=== PATIENT | male | born 1940 | race Caucasian/White ===

== ENCOUNTER → 2016-09-05 | Outpatient (CLI) | payer MEDICARE, OTHER ==
[~2016-09-05] MED LIST: ACET65TA OR; AMBI10TA OR; AMLO10CA29 PO; ASPI1TAB PO; ASPI81TA3 PO; ATOR40TA PO; CALC1TAB17 PO; CALCCHW12 PO; FLON0.05; LIPI20TA PO; LISI20TA5 PO; MULTIVIT PO; NORV5TAB OR; REME30TA OR; SENO8.6T5 OR; TUMS500C OR; VIAG100T PO; VIT D 2000 PO; VITA100037 PO; VITMTA PO
[2016-09-05 17:44] LABS: ANION GAP 11 MEQ/L (8-16); BLOOD UREA NITROGEN 11 MG/DL (7-18); CALCIUM LEVEL 9.8 MG/DL (8.8-10.2); CARBON DIOXIDE LEVEL 25 MEQ/L (21-32); CHLORIDE LEVEL 95 MEQ/L (98-107); CREATININE FOR GFR 0.63 MG/DL (0.70-1.30); GLOMERULAR FILTRATION RATE > 60.0 (>42); GLUCOSE, FASTING 95 MG/DL (83-110); POTASSIUM SERUM 4.8 MEQ/L (3.5-5.1); SODIUM LEVEL 131 MEQ/L (136-145)
== END ==
LOC: M WUC 12:26
PROVIDERS: ATTEND Nurse Practitioner Family
DX: R35.0 Frequency of micturition (principal); Z12.5 Encounter for screening for malignant neoplasm of prostate
CPT/HCPCS: 36415; 80048; 81002; G0103

== ENCOUNTER → 2016-09-08 | Outpatient (CLI) | payer MEDICARE, OTHER ==
[~2016-09-08] MED LIST changes: +ISOVUE-370 76% 100ML VIAL (Q9967) As Ordered ONE
--- NOTE | 2016-09-08 10:46 | REP ---
CT cervical spine without contrast: HISTORY: Cervical mass. There is no acute fracture or subluxation. Disc bulges with associated osteophyte formation are present at the C3-4 through C6-7 levels. There is minimal narrowing of the spinal canal. Uncinate process and/or facet hypertrophy are present at the C2-3 through C7-T1 levels. These findings produce minimal to moderate narrowing of the neural foramina. The C3-4 through C6-7 intervertebral discs are decreased in height. Vacuum phenomenon is present at the C5-6 and C6-7 levels. These findings are consistent with disc degeneration. IMPRESSION: There is cervical spondylosis at the C2-3 through C7-T1 levels. Signed by Kyle Moreira MD 09/08/2016 10:48 A
--- NOTE | 2016-09-08 10:49 | REP ---
Clinical: Cervical carcinoma with left chest wall pain. Technique: Axial contrast enhanced images from the thoracic inlet to the upper abdomen using 100 ml Isovue 370 intravenous contrast material with coronal and sagittal re-formations. Comparison: None. Findings: Bilateral lung abbasi are well-aerated, symmetric, and clear. No pulmonary parenchymal consolidation, nodule or mass lesion is appreciated. No pleural effusion/reaction or pneumothorax. Tracheobronchial tree is patent. No axillary, hilar or mediastinal adenopathy is appreciated. Atherosclerotic changes to the thoracic aorta and coronary arteries noted without aneurysm/dissection, cardiomegaly or pericardial effusion. Osseous structures demonstrate presumed age-related degenerative changes without obvious focal lytic, blastic or sclerotic lesion. There is however a subacute posterior right 11th rib fracture with small amounts of surrounding callus formation (image 101) and what appears to be a subacute left lateral tenth rib fracture (image 109). Impression: 1. Very subtle bilateral subacute appearing nondisplaced right eleventh and left tenth rib fractures. Osseous structures otherwise demonstrate presumed age-related degenerative changes without lytic, blastic, or sclerotic lesions. 2. No acute mediastinal or pleuroparenchymal process. Signed by Haroldo Alas MD 09/08/2016 10:41 A
== END ==
LOC: M RAD 09:34
PROVIDERS: ATTEND Nurse Practitioner Family
DX: G95.9 Disease of spinal cord, unspecified (principal); M43.12 Spondylolisthesis, cervical region
CPT/HCPCS: 71260; 72125; Q9967

== ENCOUNTER → 2016-09-27 | Outpatient (REF) | payer MEDICARE, OTHER ==
[~2016-09-27] MED LIST changes: -ISOVUE-370 76% 100ML VIAL (Q9967) As Ordered ONE
[2016-09-27 16:41] LABS: BASO % 0.5 % (0.0-1.0); EOS # 0.1 K/mm3 (0.0-0.50); EOS % 2.1 % (0.0-3.0); LARGE UNSTAINED CELL # 0.1 K/mm3 (0.0-0.4); LARGE UNSTAINED CELL % 1.6 % (0.0-4.0); LYMPH # 1.4 K/mm3 (1.5-4.5); LYMPH % 22.9 % (24.0-44.0); MEAN CORPUSCULAR HEMOGLOBIN 32.4 pg (27.0-33.0); MEAN CORPUSCULAR VOLUME 92.6 fl (80.0-96.0); MONO # 0.6 K/mm3 (0.0-0.8); MONO % 9.5 % (0.0-5.0); NEUTROPHILS # 3.7 K/mm3 (1.8-7.7); NEUTROPHILS % 63.3 % (36.0-66.0); PLATELET COUNT, AUTOMATED 253 k/mm3 (150-450); RED CELL DISTRIBUTION WIDTH 13.5 % (11.5-14.5); WHITE BLOOD COUNT 5.8 K/mm3 (4.0-10.0)
[2016-09-27 16:42] LABS: ANION GAP 7 MEQ/L (8-16); BLOOD UREA NITROGEN 17 MG/DL (7-18); CALCIUM LEVEL 9.8 MG/DL (8.8-10.2); CARBON DIOXIDE LEVEL 25 MEQ/L (21-32); CHLORIDE LEVEL 94 MEQ/L (98-107); CREATININE FOR GFR 0.66 MG/DL (0.70-1.30); FERRITIN 66 NG/ML (26-388); GLOMERULAR FILTRATION RATE > 60.0 (>42); GLUCOSE, FASTING 97 MG/DL (83-110); PERCENT SATURATION 24.5 % (19.7-37.4); POTASSIUM SERUM 4.4 MEQ/L (3.5-5.1); SODIUM LEVEL 126 MEQ/L (136-145); TOTAL IRON BINDING CAPACITY 364 UG/DL (250-450)
== END ==
LOC: M SFHCPLAZ 13:44
PROVIDERS: ATTEND Physician Assistant Medical
DX: K21.9 Gastro-esophageal reflux disease without esophagitis (principal); E87.1 Hypo-osmolality and hyponatremia; Z79.82 Long term (current) use of aspirin; Z79.899 Other long term (current) drug therapy

== ENCOUNTER → 2016-09-30 | Outpatient (REF) | payer MEDICARE, OTHER ==
[2016-09-30 11:44] LABS: MEAN CORPUSCULAR HEMOGLOBIN 32.8 pg (27.0-33.0); MEAN CORPUSCULAR HGB CONC 35.3 g/dl (32.0-36.5); RED CELL DISTRIBUTION WIDTH 13.6 % (11.5-14.5); WHITE BLOOD COUNT 4.9 K/mm3 (4.0-10.0)
[2016-09-30 12:06] LABS: ALBUMIN 4.1 GM/DL (3.2-5.2); ALBUMIN/GLOBULIN RATIO 1.78 (1.00-1.93); ALKALINE PHOSPHATASE 165 U/L (45-117); ALT/SGPT 27 U/L (12-78); ANION GAP 7 MEQ/L (8-16); AST/SGOT 16 U/L (15-37); BILIRUBIN,TOTAL 0.4 MG/DL (0.2-1.0); BLOOD UREA NITROGEN 12 MG/DL (7-18); CALCIUM LEVEL 9.6 MG/DL (8.8-10.2); CARBON DIOXIDE LEVEL 27 MEQ/L (21-32); CHLORIDE LEVEL 97 MEQ/L (98-107); CHOLESTEROL LEVEL 123 MG/DL (<200); CREATININE FOR GFR 0.68 MG/DL (0.70-1.30); GLOMERULAR FILTRATION RATE > 60.0 (>42); GLUCOSE, FASTING 104 MG/DL (83-110); MAGNESIUM LEVEL 2.2 MG/DL (1.8-2.4); POTASSIUM SERUM 4.3 MEQ/L (3.5-5.1); SODIUM LEVEL 131 MEQ/L (136-145); TOTAL PROTEIN 6.4 GM/DL (6.4-8.2); TRIGLYCERIDES LEVEL 71 MG/DL (<150)
== END ==
LOC: M SFHCPLAZ 09:42
PROVIDERS: ATTEND Internal Medicine
DX: C43.0 Malignant melanoma of lip (principal); I10 Essential (primary) hypertension; E78.00 Pure hypercholesterolemia, unspecified

== ENCOUNTER → 2016-10-05 | Outpatient (REF) | payer MEDICARE, OTHER ==
[2016-10-05 10:28] LABS: ALBUMIN 3.9 GM/DL (3.2-5.2); ALBUMIN/GLOBULIN RATIO 1.63 (1.00-1.93); ALKALINE PHOSPHATASE 157 U/L (45-117); ALT/SGPT 32 U/L (12-78); ANION GAP 7 MEQ/L (8-16); AST/SGOT 19 U/L (15-37); BILIRUBIN,TOTAL 0.6 MG/DL (0.2-1.0); BLOOD UREA NITROGEN 12 MG/DL (7-18); CALCIUM LEVEL 9.5 MG/DL (8.8-10.2); CARBON DIOXIDE LEVEL 27 MEQ/L (21-32); CHLORIDE LEVEL 98 MEQ/L (98-107); GLOMERULAR FILTRATION RATE > 60.0 (>42); GLUCOSE, FASTING 94 MG/DL (83-110); POTASSIUM SERUM 4.3 MEQ/L (3.5-5.1); SODIUM LEVEL 132 MEQ/L (136-145); TOTAL PROTEIN 6.3 GM/DL (6.4-8.2)
[2016-10-05 11:49] LABS: OSMOLALITY SERUM 273 MOSM/KG (280-301)
== END ==
LOC: M SFHCPLAZ 08:43
PROVIDERS: ATTEND Physician Assistant Medical
DX: E87.1 Hypo-osmolality and hyponatremia (principal)

== ENCOUNTER → 2016-10-07 | Outpatient (REF) | payer MEDICARE, OTHER ==
[2016-10-07 13:21] LABS: TOTAL VOLUME, URINE 3050 ML
[2016-10-07 14:00] LABS: OSMOLALITY URINE 375 MOSM/KG (500-800)
[2016-10-07 14:16] LABS: SODIUM 24 HOUR URINE 186 MEQ/24HR (40-220)
== END ==
LOC: M SFHCPLAZ 12:52
PROVIDERS: ATTEND Physician Assistant Medical
DX: E87.1 Hypo-osmolality and hyponatremia (principal)

== ENCOUNTER → 2016-10-19 | Outpatient (REF) | payer MEDICARE, OTHER ==
[~2016-10-19] MED LIST changes: -ATOR40TA PO; +ATOR40TA75 PO; +HYDR-643; +LEVA1TAB2 PO; +PROAAER10 INH; -VITA100037 PO; +VITA100067 PO
[2016-10-19 12:38] LABS: ALBUMIN/GLOBULIN RATIO 1.67 (1.00-1.93); ALKALINE PHOSPHATASE 183 U/L (45-117); ALT/SGPT 41 U/L (12-78); ANION GAP 7 MEQ/L (8-16); AST/SGOT 19 U/L (15-37); BILIRUBIN,TOTAL 0.6 MG/DL (0.2-1.0); BLOOD UREA NITROGEN 12 MG/DL (7-18); CALCIUM LEVEL 9.8 MG/DL (8.8-10.2); CARBON DIOXIDE LEVEL 26 MEQ/L (21-32); CHLORIDE LEVEL 103 MEQ/L (98-107); CREATININE FOR GFR 0.71 MG/DL (0.70-1.30); GLOMERULAR FILTRATION RATE > 60.0 (>42); GLUCOSE, FASTING 97 MG/DL (83-110); POTASSIUM SERUM 4.4 MEQ/L (3.5-5.1); SODIUM LEVEL 136 MEQ/L (136-145); TOTAL PROTEIN 6.4 GM/DL (6.4-8.2)
== END ==
LOC: M SFHCPLAZ 09:50
PROVIDERS: ATTEND Physician Assistant Medical
DX: I10 Essential (primary) hypertension (principal); E87.1 Hypo-osmolality and hyponatremia

== ENCOUNTER → 2017-01-02 | Outpatient (CLI) | payer MEDICARE, OTHER ==
[2017-01-02 14:17] LABS: MEAN CORPUSCULAR HEMOGLOBIN 32.8 pg (27.0-33.0); MEAN CORPUSCULAR HGB CONC 35.8 g/dl (32.0-36.5); MEAN CORPUSCULAR VOLUME 91.6 fl (80.0-96.0); RED CELL DISTRIBUTION WIDTH 13.5 % (11.5-14.5); WHITE BLOOD COUNT 6.1 K/mm3 (4.0-10.0)
[2017-01-02 14:48] LABS: ALBUMIN 3.9 GM/DL (3.2-5.2); ALBUMIN/GLOBULIN RATIO 1.56 (1.00-1.93); ALKALINE PHOSPHATASE 188 U/L (45-117); ALT/SGPT 60 U/L (12-78); ANION GAP 6 MEQ/L (8-16); AST/SGOT 24 U/L (15-37); BILIRUBIN,TOTAL 0.5 MG/DL (0.2-1.0); BLOOD UREA NITROGEN 14 MG/DL (7-18); CALCIUM LEVEL 9.9 MG/DL (8.8-10.2); CARBON DIOXIDE LEVEL 27 MEQ/L (21-32); CHLORIDE LEVEL 100 MEQ/L (98-107); CREATININE FOR GFR 0.73 MG/DL (0.70-1.30); GLOMERULAR FILTRATION RATE > 60.0 (>42); GLUCOSE, FASTING 138 MG/DL (83-110); POTASSIUM SERUM 4.1 MEQ/L (3.5-5.1); SODIUM LEVEL 133 MEQ/L (136-145); TOTAL PROTEIN 6.4 GM/DL (6.4-8.2)
--- NOTE | 2017-01-02 16:06 | REP ---
CT brain without contrast: History: Malignant melanoma of the lip. Comparison CT study 06/05/2011. Findings: Digital lateral window clerk radiograph and bone window settings demonstrate that there is evidence of widespread skeletal metastatic disease with numerous lytic lesions in the bony calvarium. The largest of these are in the vertex where there is a left frontal bony destructive lesion measuring 4.1 cm. This is seen at the vertex on the lateral window clerk radiograph. In the left side of the parietal bone at the vertex there is a also a 1.9 cm destructive lesion. There are numerous tiny foci of bone destruction and there is bony destruction in the clivus. These findings are new when compared with the [address] study. No intraorbital mass lesion is seen. Visualized paranasal sinuses are clear. No intracranial mass lesion is observed. There is diffuse mild to moderate cerebral atrophy. The large calvarial metastasis appears to bulge from the inner table of the skull but no significant intracranial mass effect is seen. Post contrast enhanced study shows no abnormal intracranial enhancing mass lesion. The calvarial lesion does show contrast enhancement fairly intensely. 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 No intra-axial metastatic disease seen. Diffuse atrophy and vascular calcification noted. Signed by Joseph Do MD 01/02/2017 04:36 P
[2017-01-05 13:23] LABS: ALBUMIN % 65.6 % (55.8-66.1)
== END ==
LOC: M LAB 13:28
PROVIDERS: ATTEND Nurse Practitioner Adult Health
DX: C43.0 Malignant melanoma of lip (principal)

== ENCOUNTER → 2017-01-11 | Outpatient (CLI) | payer MEDICARE, OTHER ==
[~2017-01-11] MED LIST changes: +GASTROGRAFIN SOLUTION 30ML (Q9963) As Ordered ONE; +ISOVUE-370 76% 100ML VIAL (Q9967) As Ordered ONE
--- NOTE | 2017-01-11 12:45 | REP ---
CT of the abdomen pelvis without and with IV contrast: After IV contrast, multiphase imaging formed during the portal venous phase of enhancement and later during a delayed equilibrium phase of enhancement. Comparisons are 07/03/2015 and 07/23/2011. Within the visualized lower lung abbasi. There is a 9 mm lung nodule inferolaterally in the right lung on image 18, not present on the comparison studies. The hepatic parenchyma is homogeneous on all phases of the study. There is no evidence of hepatic metastatic disease. However, on the study without IV contrast. The hepatic parenchyma demonstrates increased density compared to the spleen. This is nonspecific but can be seen hemochromatosis. There is a small gallbladder calculus. The gallbladder is otherwise unremarkable. The pancreas and spleen are homogeneous and unremarkable. The adrenals and kidneys are unchanged unremarkable. There is a small hepatic cyst in the left kidney, unchanged. The abdominal aorta is unremarkable. There is no periaortic/retroperitoneal adenopathy. There is no mesenteric adenopathy. The large and small bowel loops are unremarkable. Pelvis: There is no adenopathy or ascites. The bladder is unremarkable. There is descending colon and sigmoid colon diverticulosis without diverticulitis. The appendix is unremarkable. There is a 3.2 cm lytic expansile lesion in the left iliac wing. Additionally, there is a 4.0 cm lucent lesion in the right acetabulum. There is a 3.8 a centimeter lucent lesion posteriorly in the left iliac wing and in a similar lesion posteriorly in the right iliac wing. Impression: There are lytic lesions in the pelvis as described. No hepatic metastases. The liver demonstrates increased radiodensity. This can be seen in hemochromatosis. There is a gallbladder calculus. There is no adenopathy or ascites. There is a left renal cyst. Consider radionuclide PET / CT scan for further evaluation. Signed by Yinka Gaitan MD 01/11/2017 12:36 P
--- NOTE | 2017-01-11 14:19 | REP ---
WHOLE BODY BONE SCAN: Following the intravenous administration of 22 millicuries technetium 99m MDP, the patient's whole body is imaged in the anterior and posterior projections. Additional oblique images of the thoracic and pelvic regions are performed as well as lateral views of the calvarium, knees and feet. Focus of increased uptake in the posterior right 11th rib and posterior left 11th rib are consistent with fractures seen on CT scan of 01/11/2017. There is a focus of increased uptake in the left iliac bone consistent with a metastatic lesion. Other lesions, which were seen on the CT exam are not visualized scintigraphically. Arthritic uptake is seen in the cervical spine, shoulders, wrists and left ankle. There is also a mild arthritic uptake in the lower lumbar spine. Renal and bladder activity are seen. IMPRESSION: Focus of increased uptake in the posterior right 11th rib and left 11th rib are consistent with rib fractures. There is a focus of increased uptake in the left iliac bone consistent with a metastatic lesion. Other metastatic lesions seen in the pelvic bones on today's CT scan are not visualized scintigraphically. Signed by Yinka Wang MD 01/11/2017 05:08 P
== END ==
LOC: M RAD 09:34
PROVIDERS: ATTEND Nurse Practitioner Adult Health
DX: C43.0 Malignant melanoma of lip (principal)
CPT/HCPCS: 74178; 78306; A9503; Q9963; Q9967

== ENCOUNTER → 2017-01-16 | Outpatient (REF) | payer MEDICARE, OTHER ==
[~2017-01-16] MED LIST changes: -GASTROGRAFIN SOLUTION 30ML (Q9963) As Ordered ONE; -ISOVUE-370 76% 100ML VIAL (Q9967) As Ordered ONE
[2017-01-16 19:38] LABS: INR 0.94
[2017-01-17 09:09] LABS: TOTAL PROTEIN 6.7 GM/DL (6.4-8.2)
[2017-01-17 12:05] LABS: ALBUMIN % 65.6 % (55.8-66.1); GAMMA GLOBULIN % 4.3 % (11.1-18.8)
[2017-01-17 18:37] LABS: IMMUNOGLOBULIN G 239 MG/DL (681-1648)
[2017-01-17 19:17] LABS: IMMUNOGLOBULIN A 12.2 MG/DL (70-400); IMMUNOGLOBULIN M < 5.3 MG/DL (40-230)
[2017-01-19 00:07] LABS: FREE KAPPA LIGHT CHAINS SERUM 1091.3 mg/L (3.3-19.4); FREE LAMBDA LIGHT CHAINS SERUM <1.5 mg/L (5.7-26.3)
== END ==
LOC: M LAB REF 16:30
PROVIDERS: ATTEND Internal Medicine Medical Oncology
DX: Z79.01 Long term (current) use of anticoagulants (principal)

== ENCOUNTER → 2017-01-24 | Outpatient (CLI) | payer MEDICARE, OTHER ==
--- NOTE | 2017-01-24 16:48 | REP ---
PET/CT: History: With history of melanoma for staging. Comparisons: Comparison CT study of the brain January 02, 2017. Comparison whole body bone scan January 11, 2017. Comparison CT abdomen and pelvis January 11, 2017. TECHNIQUE: 56 minutes following the intravenous injection of a 9.6 mCi dose of F-18 FDG, three-dimensional PET scintigraphy is acquired from the skull vertex to the toes. Triplanar noncontrast CT scanning is acquired through the same anatomic range for attenuation correction, and image registration with scan parameters optimized to minimize radiation exposure to the patient. PET scintigraphy and CT datasets were fused and displayed on a workstation with multiplanar and projection display capability. PET/CT Findings: In the head and neck region, there is a hypermetabolic mass in the posterior aspect of the left maxillary bone involving the posterior portion of the left maxillary sinus with bone destruction of the alveolar ridge. This lesion shows maximum standard uptake value of 9.5. The lesion destroys the left side of the posterior aspect of the hard palate as well. It measures approximately 3 cm in greatest diameter. The hypermetabolic component of the lesion is along its inferior extent in the region of the left maxillary alveolus posteriorly. The accompanying CT and the recent head CT showed several lytic calvarial lesions, the largest of which is at the vertex measuring 4.7 cm in greatest transverse dimension. Maximum standard uptake value here is 3.7. No other abnormal head and neck hypermetabolic uptake is seen. There is an area of lytic bone destruction in the acromion process on the left with minimally increased FDG uptake, maximum standard uptake value 2.3. There is evidence of an old os acromiale on the right, but some lytic change is seen in the right acromion process as well. No hypermetabolic uptake is seen. There is a new radiolucent lesion in the left posterior thoracic vertebral body, number 5. This is suspicious radiographically, but is not showing any FDG accumulation. Similarly, there is another lesion a little lower down in the thoracic spine without hypermetabolic uptake, although it is new. There is mildly hypermetabolic uptake in a bone destructive lesion in the left iliac bone. Maximum standard uptake value is 2.8. There is another fairly large lytic lesion in the right superior acetabulum, 4.8 cm in greatest diameter. At the anterior edge of this lesion, there is some hypermetabolic FDG uptake with SUV number at 3.6. There is a radiolucent lesion in the proximal tibia on the left with some early cortical thinning. Maximum standard uptake value is 2.3. No other abnormal skeletal uptake is seen. There is an area of increased uptake in the soft tissues of the left forearm at mid forearm level. Maximum standard uptake value is fairly high, 5.3. The technologist sheet states that the injection site is in the right antecubital fossa. This soft tissue uptake is in the dorsal aspect of the forearm. Impression: Multifocal mildly hypermetabolic uptake in several of this patient's radiolucent bony metastatic lesions. Most prominent of these include a fairly large calvarial lesion, a left hard palate and maxillary bone destructive lesion, the left iliac crest and a right acetabular lesion as well as an early lesion in the left proximal tibia. Signed by Joseph Do MD 01/24/2017 05:32 P
== END ==
LOC: M PLARAD 11:02
PROVIDERS: ATTEND Internal Medicine Medical Oncology
DX: C43.9 Malignant melanoma of skin, unspecified (principal); C79.51 Secondary malignant neoplasm of bone
CPT/HCPCS: 78816; A9552

== ENCOUNTER → 2017-01-30 | Outpatient (CLI) | payer MEDICARE, OTHER ==
[~2017-01-30] MED LIST changes: +LIDOCAINE 1% MDV 20ML VIAL As Ordered ONE
--- NOTE | 2017-01-30 15:58 | REP ---
CT GUIDED LEFT ILIAC BONE BIOPSY: The procedure was performed under the direct supervision of Dr. Wang. The patient has as history of a 3.2 cm lytic expansile lesion in the left iliac wings seen on a previous CT scan dated 01/11/2017. The risks and benefits of the procedure were explained to the patient and informed consent was obtained. The lesion in the left iliac wing was localized using CT guidance. The skin was prepped and draped in a sterile fashion. 1% lidocaine was used as local anesthetic. Using CT guidance, a 17/18-gauge coaxial needle biopsy system was inserted and advanced into the lesion. Four core biopsy samples were obtained and sent to the lab. The patient tolerated the procedure well and there were no immediate complications. After the appropriate amount of monitored convalescence the patient was discharged from the department. Reviewed by DIMPLE Murray 01/30/2017 05:03 PEdited and Signed by Yinka Wang MD 01/31/2017 07:31 P
== END ==
LOC: M RADPRO 09:10
PROVIDERS: ATTEND Internal Medicine Medical Oncology
DX: C90.00 Multiple myeloma not having achieved remission (principal); Z79.82 Long term (current) use of aspirin; Z79.899 Other long term (current) drug therapy; Z88.8 Allergy status to other drugs, medicaments and biological substances

== ENCOUNTER 2017-02-05 10:01 | Emergency (ER) | payer MEDICARE, OTHER ==
[~2017-02-05] VITALS: Ht 157.5 cm; Wt 70.5 kg
[~2017-02-05 10:01] MED LIST changes: -HYDR-643; -LEVA1TAB2 PO; -LIDOCAINE 1% MDV 20ML VIAL As Ordered ONE; -PROAAER10 INH
[2017-02-05] MEDS ORDERED: HYDR-643 (10:13)
--- NOTE | 2017-02-05 10:54 | REP ---
PA and lateral chest: Comparison is 07/23/2011. The lung abbasi are clear. The cardiac size is normal The aaron, mediastinum, and bony thorax are unremarkable. Impression: Negative PA and lateral chest. There is no interval change. Signed by Yinka Gaitan MD 02/05/2017 10:45 A
[2017-02-05] MEDS ORDERED: LEVA1TAB2 PO (11:38)
[2017-02-05] MEDS ORDERED: PROAAER10 INH (11:39)
[2017-02-05 12:01] VITALS: BP 162/72
== END 2017-02-05 12:02 | disposition home or self-care (01) ==
LOC: M ED 10:01
DX: J20.9 Acute bronchitis, unspecified (principal); I27.20 Pulmonary hypertension, unspecified; I10 Essential (primary) hypertension; E78.5 Hyperlipidemia, unspecified; Z85.828 Personal history of other malignant neoplasm of skin; Z87.19 Personal history of other diseases of the digestive system; R22.1 Localized swelling, mass and lump, neck; Z87.891 Personal history of nicotine dependence; Z82.49 Family history of ischemic heart disease and other diseases of the circulatory system; Z79.82 Long term (current) use of aspirin; Z79.899 Other long term (current) drug therapy; Z88.8 Allergy status to other drugs, medicaments and biological substances

== ENCOUNTER → 2017-02-06 | Outpatient (REF) | payer MEDICARE, OTHER ==
[~2017-02-06] MED LIST changes: +HYDR-643; +LEVA1TAB2 PO; +PROAAER10 INH
== END ==
LOC: M LAB REF 17:12
PROVIDERS: ATTEND Internal Medicine Medical Oncology
DX: C90.00 Multiple myeloma not having achieved remission (principal)

== ENCOUNTER → 2017-03-03 | Outpatient (CLI) | payer MEDICARE, OTHER ==
--- NOTE | 2017-03-03 12:27 | REP ---
MRI CERVICAL SPINE WITHOUT AND WITH CONTRAST: HISTORY: Back pain. CONTRAST: ProHance 14 mL. A disc bulge with associated osteophyte formation is present at the C3-4 level. There is minimal spinal cord compression. Bilateral uncinate process and right facet hypertrophy are present. These findings produce mild narrowing of the C3 neural foramina. A disc bulge and small central disc protrusion are present at the C4-5 level. There is mild effacement of the thecal sac without spinal cord compression. The C4 neural foramina are patent. A disc bulge with associated osteophyte formation is present at the C5-6 level. There is moderate effacement of the thecal sac without spinal cord compression. Bilateral uncinate process hypertrophy is present. This produces minimal narrowing of the C5 neural foramina. A disc bulge and small central disc protrusion with associated osteophyte formation are present at the C6-7 level. There is mild effacement of the thecal sac without spinal cord compression. The C6 neural foramina are patent. A disc bulge is present at the T7-T1 level. There is minimal effacement of the thecal sac without spinal cord compression. The C7 neural foramina are patent. There is no other disc bulge or herniation. The remaining neural foramina are patent. The spinal cord is normal in signal intensity. Small focal areas of increased signal intensity on T2-weighted images are present in the C2, C5 and T1 vertebral bodies. Additional areas of increased signal intensity are present in the left T1 pedicle and left T2 facet, right T3 and T4 facets and T4 spinous process. There is mild enhancement with contrast. These findings are consistent with metastases. The C3-4 through C6-7 intervertebral discs are decreased in height consistent with disc degeneration. The vertebral bodies are normal in height. IMPRESSION: 1. There is cervical spondylosis at the C3-4 through C6-7 levels most significant at the C3-4 level where there is minimal spinal cord compression. 2. There are metastatic lesions in the cervical and thoracic vertebral bodies and neural arch as described above. There is no paravertebral or epidural extension. Signed by Kyle Moreira MD 03/03/2017 12:28 P
--- NOTE | 2017-03-03 12:36 | REP ---
MR THORACIC SPINE WITHOUT AND WITH CONTRAST: HISTORY: Back pain. CONTRAST: ProHance 14 mL. A small central disc protrusion is present at the T2-3 level. There is minimal effacement of the thecal sac without spinal cord compression. The T2 neural foramina are patent. There is no other disc bulge or herniation. The remaining neural foramina are patent. The spinal cord is normal in signal intensity. Focal areas of increased signal intensity are present in the T1, T2, T5, T6, T9, T11, and T12 vertebral bodies. Additional areas of increased signal intensity are present in the left T1 pedicle, left T2, T8 and T10 facets and T4, T6 and T11 spinous processes. There is mild homogeneous enhancement with contrast. These findings are consistent with metastases. The vertebral bodies are normal in height. There is no paravertebral or epidural extension. IMPRESSION: 1. Small disc protrusion at the T2-3 level without spinal cord compression. 2. There are multiple metastatic lesions in the thoracic vertebral bodies and neural arch as described above. There is no paravertebral or epidural extension. Signed by Kyle Moreira MD 03/03/2017 12:37 P
== END ==
LOC: M PLARAD 09:34
PROVIDERS: ATTEND Internal Medicine Medical Oncology
DX: C90.00 Multiple myeloma not having achieved remission (principal); M51.24 Other intervertebral disc displacement, thoracic region

== ENCOUNTER → 2017-03-06 | Outpatient (REF) | payer MEDICARE, OTHER ==
[2017-03-06 14:32] LABS: CORTISOL AM 13.2 UG/DL (4.3-22.4)
[2017-03-06 15:06] LABS: FREE T4 1.09 NG/DL (0.76-1.46)
== END ==
LOC: M LAB REF 13:29
PROVIDERS: ATTEND Internal Medicine Medical Oncology
DX: C90.00 Multiple myeloma not having achieved remission (principal)

== ENCOUNTER → 2017-04-24 | Outpatient (REF) | payer MEDICARE, OTHER ==
[2017-04-24 15:10] LABS: MEAN CORPUSCULAR HEMOGLOBIN 29.1 pg (27.0-33.0); MEAN CORPUSCULAR HGB CONC 33.3 g/dl (32.0-36.5); MEAN CORPUSCULAR VOLUME 87.2 fl (80.0-96.0); PLATELET COUNT, AUTOMATED 236 10^3/uL (150-450); RED BLOOD COUNT 4.47 10^6/uL (4.30-6.10); RED CELL DISTRIBUTION WIDTH 13.7 % (11.5-14.5)
[2017-04-24 15:11] LABS: ADD MANUAL DIFFER YES; DIFF SLIDE NUMBER 263; POSITIVE DIFF POS FLAG
[2017-04-24 18:57] LABS: BANDS 2 % (< 11); BASOPHILS 1 % (0-4); EOSINOPHILS 14 % (0-5); LYMPHOCYTES 7 % (16-52); MONOCYTES 5 % (0-8); NEUTROPHILS 71 % (35-75)
[2017-04-24 18:58] LABS: PLATELET ESTIMATE NORMAL (NORMAL)
[2017-04-24 19:44] LABS: APPEARANCE, URINE CLEAR (CLEAR); BACTERIA, URINE AUTO NEGATIVE (NEGATIVE); BILIRUBIN, URINE AUTO NEGATIVE (NEGATIVE); BLOOD, URINE BLOOD NEGATIVE (NEGATIVE); COLOR, URINE YELLOW (YELLOW); GLUCOSE, URINE (UA) AUTO NEGATIVE (NEGATIVE); KETONE, URINE AUTO NEGATIVE (NEGATIVE); LEUKOCYTE ESTERASE, URINE AUTO NEGATIVE (NEGATIVE); MUCUS, URINE SMALL (NEGATIVE); NITRITE, URINE AUTO NEGATIVE (NEGATIVE); PROTEIN, URINE AUTO NEGATIVE (NEGATIVE); RBC, URINE AUTO 3 /HPF (0-3); SPECIFIC GRAVITY URINE AUTO 1.011 (1.002-1.035); SQUAMOUS EPITHELIAL CELL UR AU 0 /HPF (0-6); UROBILINOGEN, URINE AUTO 0.2 mg/dL (0.0-2.0); WBC, URINE AUTO 1 /HPF (0-3)
== END ==
LOC: M SFHCPLAZ 13:40
DX: C90.00 Multiple myeloma not having achieved remission (principal); R50.9 Fever, unspecified (principal); Z79.899 Other long term (current) drug therapy
CPT/HCPCS: 85025

== ENCOUNTER → 2017-05-30 | Outpatient (REF) | payer MEDICARE, OTHER ==
[2017-05-30 14:05] LABS: TOTAL PROTEIN 5.2 GM/DL (6.4-8.2)
[2017-05-30 14:14] LABS: URINE TOTAL PROTEIN 13.4 MG/DL (0-12)
[2017-05-31 12:57] LABS: ALBUMIN 3.22 GM/DL (3.29-5.55); ALPHA-1-GLOBULINS 0.42 GM/DL (0.17-0.41); ALPHA-2-GLOBULINS 0.75 GM/DL (0.42-0.99); ALPHA-2-GLOBULINS % 14.5 % (7.1-11.8); BETA-1-GLOBULINS 0.36 GM/DL (0.28-0.60); BETA-2-GLOBULINS % 3.8 % (3.2-6.5); GAMMA GLOBULIN % 4.7 % (11.1-18.8); GAMMA GLOBULINS 0.24 GM/DL (0.65-1.58)
[2017-05-31 13:59] LABS: UPEP INTERPRETATION NO M-SPIKE NOTED; URINE VOLUME RANDOM ML
[2017-06-02 00:06] LABS: FREE KAPPA LIGHT CHAINS SERUM 68.4 mg/L (3.3-19.4); FREE LAMBDA LIGHT CHAINS SERUM 6.4 mg/L (5.7-26.3); KAPPA/LAMBDA RATIO SERUM 10.69 (0.26-1.65)
== END ==
LOC: M LAB REF 13:32
DX: C90.00 Multiple myeloma not having achieved remission (principal)
CPT/HCPCS: 84165

== ENCOUNTER → 2017-07-11 | Outpatient (REF) | payer MEDICARE, OTHER ==
[2017-07-11 14:11] LABS: TOTAL PROTEIN 5.9 GM/DL (6.4-8.2)
[2017-07-12 11:16] LABS: ALBUMIN % 66.1 % (55.8-66.1); ALPHA-1-GLOBULIN % 5.3 % (2.9-4.9); ALPHA-1-GLOBULINS 0.31 GM/DL (0.17-0.41); ALPHA-2-GLOBULINS 0.74 GM/DL (0.42-0.99); ALPHA-2-GLOBULINS % 12.5 % (7.1-11.8); BETA-1-GLOBULINS 0.46 GM/DL (0.28-0.60); BETA-1-GLOBULINS % 7.8 % (4.7-7.2); BETA-2-GLOBULINS 0.22 GM/DL (0.19-0.55); BETA-2-GLOBULINS % 3.7 % (3.2-6.5); GAMMA GLOBULIN % 4.6 % (11.1-18.8); GAMMA GLOBULINS 0.27 GM/DL (0.65-1.58)
[2017-07-13 00:07] LABS: FREE KAPPA LIGHT CHAINS SERUM 81.4 mg/L (3.3-19.4); FREE LAMBDA LIGHT CHAINS SERUM 2.1 mg/L (5.7-26.3); KAPPA/LAMBDA RATIO SERUM 38.76 (0.26-1.65)
== END ==
LOC: M LAB REF 13:46
DX: C90.00 Multiple myeloma not having achieved remission (principal)
CPT/HCPCS: 84165

== ENCOUNTER → 2017-08-08 | Outpatient (REF) | payer MEDICARE, OTHER ==
[2017-08-08 14:55] LABS: URINE TOTAL PROTEIN 12.3 MG/DL (0-12)
[2017-08-08 15:30] LABS: IMMUNOGLOBULIN G 270 MG/DL (681-1648); TOTAL PROTEIN 6.4 GM/DL (6.4-8.2)
[2017-08-08 15:33] LABS: IMMUNOGLOBULIN A 21.4 MG/DL (70-400); IMMUNOGLOBULIN M 10.4 MG/DL (40-230)
[2017-08-10 00:06] LABS: FREE KAPPA LIGHT CHAINS SERUM 77.6 mg/L (3.3-19.4); FREE LAMBDA LIGHT CHAINS SERUM 2.3 mg/L (5.7-26.3); KAPPA/LAMBDA RATIO SERUM 33.74 (0.26-1.65)
[2017-08-10 11:29] LABS: ALBUMIN % 65.6 % (55.8-66.1); ALPHA-1-GLOBULIN % 5.3 % (2.9-4.9); ALPHA-2-GLOBULINS % 13.2 % (7.1-11.8); BETA-1-GLOBULINS % 7.1 % (4.7-7.2); BETA-2-GLOBULINS % 3.8 % (3.2-6.5)
[2017-08-10 11:30] LABS: ALPHA-1-GLOBULINS 0.34 GM/DL (0.17-0.41); ALPHA-2-GLOBULINS 0.84 GM/DL (0.42-0.99); BETA-1-GLOBULINS 0.45 GM/DL (0.28-0.60); BETA-2-GLOBULINS 0.24 GM/DL (0.19-0.55); GAMMA GLOBULINS 0.32 GM/DL (0.65-1.58)
[2017-08-10 14:38] LABS: URINE VOLUME RANDOM ML
[2017-08-10 14:39] LABS: UPEP INTERPRETATION NO M-SPIKE NOTED
== END ==
LOC: M LAB REF 13:15
DX: C90.02 Multiple myeloma in relapse (principal); Z85.820 Personal history of malignant melanoma of skin
CPT/HCPCS: 84165

== ENCOUNTER → 2017-10-03 | Outpatient (REF) | payer MEDICARE, OTHER ==
[2017-10-03 17:40] LABS: IMMUNOGLOBULIN G 257 MG/DL (681-1648); TOTAL PROTEIN 5.9 GM/DL (6.4-8.2)
[2017-10-03 17:53] LABS: IMMUNOGLOBULIN M 10.4 MG/DL (40-230)
[2017-10-05 00:07] LABS: FREE KAPPA LIGHT CHAINS SERUM 62.3 mg/L (3.3-19.4); FREE LAMBDA LIGHT CHAINS SERUM 2.1 mg/L (5.7-26.3); KAPPA/LAMBDA RATIO SERUM 29.67 (0.26-1.65)
[2017-10-05 12:46] LABS: ALPHA-1-GLOBULIN % 4.9 % (2.9-4.9)
[2017-10-05 12:47] LABS: ALBUMIN 4.07 GM/DL (3.29-5.55); ALPHA-1-GLOBULINS 0.29 GM/DL (0.17-0.41); ALPHA-2-GLOBULINS 0.71 GM/DL (0.42-0.99); BETA-1-GLOBULINS 0.41 GM/DL (0.28-0.60); BETA-2-GLOBULINS % 3.4 % (3.2-6.5); GAMMA GLOBULIN % 3.7 % (11.1-18.8); GAMMA GLOBULINS 0.22 GM/DL (0.65-1.58)
== END ==
LOC: M LAB REF 13:28
DX: C90.02 Multiple myeloma in relapse (principal); Z85.820 Personal history of malignant melanoma of skin
CPT/HCPCS: 84165

== ENCOUNTER → 2017-11-07 | Outpatient (REF) | payer MEDICARE, OTHER ==
[2017-11-09 00:10] LABS: FREE KAPPA LIGHT CHAINS SERUM 52.4 mg/L (3.3-19.4); FREE LAMBDA LIGHT CHAINS SERUM 1.7 mg/L (5.7-26.3); KAPPA/LAMBDA RATIO SERUM 30.82 (0.26-1.65)
== END ==
LOC: M LAB REF 13:19
DX: C90.02 Multiple myeloma in relapse (principal); Z85.820 Personal history of malignant melanoma of skin
CPT/HCPCS: 83883

== ENCOUNTER → 2017-12-05 | Outpatient (REF) | payer MEDICARE, OTHER ==
[2017-12-06 14:26] LABS: FREE KAPPA LIGHT CHAINS SERUM 59.7 mg/L (3.3-19.4); FREE LAMBDA LIGHT CHAINS SERUM 1.8 mg/L (5.7-26.3); KAPPA/LAMBDA RATIO SERUM 33.17 (0.26-1.65)
== END ==
LOC: M LAB REF 13:52
DX: C90.02 Multiple myeloma in relapse (principal); Z85.820 Personal history of malignant melanoma of skin
CPT/HCPCS: 83883

== ENCOUNTER → 2017-12-11 | Outpatient (REF) | payer MEDICARE, OTHER ==
[2017-12-11 16:17] LABS: ANION GAP 10 MEQ/L (8-16); BLOOD UREA NITROGEN 10 MG/DL (7-18); CALCIUM LEVEL 9.5 MG/DL (8.8-10.2); CARBON DIOXIDE LEVEL 25 MEQ/L (21-32); CHLORIDE LEVEL 101 MEQ/L (98-107); CREATININE FOR GFR 0.61 MG/DL (0.70-1.30); GLOMERULAR FILTRATION RATE > 60.0 (>42); GLUCOSE, FASTING 111 MG/DL (70-100); SODIUM LEVEL 136 MEQ/L (136-145)
== END ==
LOC: M SFHCPLAZ 13:00
DX: E87.1 Hypo-osmolality and hyponatremia (principal)
CPT/HCPCS: 80048

== ENCOUNTER → 2018-01-09 | Outpatient (REF) | payer MEDICARE, OTHER ==
[2018-01-11 00:11] LABS: FREE KAPPA LIGHT CHAINS SERUM 74.4 mg/L (3.3-19.4); FREE LAMBDA LIGHT CHAINS SERUM 2.4 mg/L (5.7-26.3)
== END ==
LOC: M LAB REF 13:50
DX: C90.02 Multiple myeloma in relapse (principal); Z85.820 Personal history of malignant melanoma of skin
CPT/HCPCS: 83883

== ENCOUNTER → 2018-03-01 | Outpatient (REF) | payer MEDICARE, OTHER ==
[2018-03-01 11:49] LABS: CHOLESTEROL LEVEL 107 MG/DL (<200); CHOLESTEROL RISK RATIO 1.877 (<5); HDL CHOLESTEROL 57 MG/DL (>40); LDL CHOLESTEROL 41 MG/DL (<100); NON-HDL-C 50 MG/DL; TRIGLYCERIDES LEVEL 43 MG/DL (<150)
== END ==
LOC: M SFHCPLAZ 08:29
DX: E78.00 Pure hypercholesterolemia, unspecified (principal)
CPT/HCPCS: 80061

== ENCOUNTER → 2019-03-14 | Outpatient (REF) | payer MEDICARE, OTHER ==
[~2019-03-14] MED LIST changes: +ACYC200C8 PO; +ALLE24TA7 PO; +AMLO10CA22 PO; -AMLO10CA29 PO; -ASPI1TAB PO; +ASPI81TA26 PO; -CALC1TAB17 PO; +CHOL100029 PO; +DEXA4TA PO; +DORZ2SOL5 OP; +FISH120016 PO; +OYST500T13 PO; +REVL15CA PO
[2019-03-15 12:13] LABS: TOTAL PROTEIN,RANDOM URINE 6.2 MG/DL (0.0-12.0); URINE TOTAL PROTEIN 6.2 MG/DL (0-12)
[2019-03-19 06:06] LABS: TOTAL VOLUME, URINE 3000 ML
== END ==
LOC: M LAB REF 11:43
PROVIDERS: ATTEND Internal Medicine Hematology
DX: C90.00 Multiple myeloma not having achieved remission (principal)

== ENCOUNTER → 2019-03-16 | Outpatient (CLI) | payer MEDICARE, OTHER ==
[2019-03-16 13:39] LABS: IMMUNOGLOBULIN A 13.1 MG/DL (70-400); IMMUNOGLOBULIN G 257 MG/DL (681-1648)
[2019-03-16 13:40] LABS: IMMUNOGLOBULIN M < 5.3 MG/DL (40-230)
== END ==
LOC: M LAB 10:49
PROVIDERS: ATTEND Internal Medicine Hematology
DX: C90.00 Multiple myeloma not having achieved remission (principal)

== ENCOUNTER → 2019-03-18 | Outpatient (CLI) | payer MEDICARE, OTHER ==
--- NOTE | 2019-03-18 12:09 | REP ---
Clinical: Multiple myeloma. Technique: Standard adult bone survey images through the appendicular and axial skeleton including the calvarium (17 total images). Findings: Innumerable lytic lesions are identified throughout the calvarium as well as involving the bilateral humeri, visualized proximal left radius, pelvis and bilateral femurs. Moderate/advanced multilevel degenerative changes through the cervical, thoracic, and lumbosacral spine limit evaluation for underlying vertebral lesions. No obvious acute fracture / compression injury or acute subluxation appreciated. Impression: Scattered lytic lesions consistent with multiple myeloma. Electronically Signed by Haroldo Alas MD 03/18/2019 12:00 P
== END ==
LOC: M RAD 11:07
PROVIDERS: ATTEND Internal Medicine Hematology
DX: C90.00 Multiple myeloma not having achieved remission (principal)

== ENCOUNTER → 2019-03-21 | Outpatient (CLI) | payer MEDICARE, OTHER ==
[~2019-03-21] MED LIST changes: +AZIT-12 PO; +DOXY100T27 PO
--- NOTE | 2019-03-21 12:08 | REP ---
Clinical: Cough . Comparison: 02/05/2017 . Technique: PA and lateral. Findings: The mediastinum and cardiac silhouette are normal. A somewhat lobulated 2 cm density in the right mid lung zone is appreciated and while this may reflect calcification along the anterior rib margins, pulmonary lesion cannot be excluded. No further consolidation. No effusion. No pneumothorax. Skeletal structures demonstrate osteopenia and degenerative changes. Impression: 1. Cannot exclude right pulmonary nodular lesion. Consider chest CT follow-up. 2. No focal consolidation or effusion. Electronically Signed by Haroldo Alas MD 03/21/2019 12:00 P
== END ==
LOC: M WUC 11:26
PROVIDERS: ATTEND Nurse Practitioner Family
DX: R91.8 Other nonspecific abnormal finding of lung field (principal); R06.2 Wheezing; R05 Cough; R50.9 Fever, unspecified

== ENCOUNTER → 2019-04-18 | Outpatient (CLI) | payer MEDICARE, OTHER ==
[~2019-04-18] MED LIST changes: +AMOX875T2 PO; +CYCL1CAP2 PO; +DOCU100C17 PO; +FOLGTAB5 PO; +MIRA3350 PO; +ONDA4TAB6 PO; +POMA3CAP PO
--- NOTE | 2019-04-18 12:23 | REPPI ---
Clinical: cough. Technique: PA and lateral. Findings: The mediastinum and cardiac silhouette are normal. The lung abbasi are clear and without acute consolidation, effusion, or pneumothorax. The skeletal structures are intact; old right healed rib fracture. Impression: 1. No acute cardiopulmonary process. Electronically Signed by Haroldo Alas MD 04/18/2019 12:14 P
[2019-04-18 14:25] LABS: ALBUMIN 3.6 GM/DL (3.2-5.2); ALT/SGPT 27 U/L (12-78); BILIRUBIN,TOTAL 0.4 MG/DL (0.2-1.0); BLOOD UREA NITROGEN 11 MG/DL (7-18); CALCIUM LEVEL 8.9 MG/DL (8.8-10.2); CARBON DIOXIDE LEVEL 24 MEQ/L (21-32); CHLORIDE LEVEL 102 MEQ/L (98-107); CHOLESTEROL LEVEL 120 MG/DL (<200); CHOLESTEROL RISK RATIO 1.791 (<5); GLOMERULAR FILTRATION RATE > 60.0 (>35); GLUCOSE, FASTING 95 MG/DL (70-100); HDL CHOLESTEROL 67 MG/DL (>40); LDL CHOLESTEROL 43 MG/DL (<100); NON-HDL-C 53 MG/DL; POTASSIUM SERUM 4.1 MEQ/L (3.5-5.1); SODIUM LEVEL 133 MEQ/L (136-145); TOTAL PROTEIN 5.8 GM/DL (6.4-8.2); TRIGLYCERIDES LEVEL 51 MG/DL (<150)
== END ==
LOC: M PLALAB 09:24 → M PLAIMG 09:24
PROVIDERS: ATTEND Internal Medicine
DX: R05 Cough (principal); I10 Essential (primary) hypertension; E78.00 Pure hypercholesterolemia, unspecified
CPT/HCPCS: 36415; 71046; 80053; 80061; 83735; G0463

== ENCOUNTER 2019-06-06 01:02 | Inpatient (IN) | payer MEDICARE, OTHER ==
[~2019-06-06] VITALS: Ht 157.5 cm; Wt 70.5 kg
[~2019-06-06 01:02] MED LIST changes: -DORZ2SOL5 OP; +DORZ2SOL5 OU
[2019-06-06 02:05] LABS: HEMATOCRIT 45.4 % (42.0-52.0); HEMOGLOBIN 15.6 g/dl (13.5-17.5); MEAN CORPUSCULAR HEMOGLOBIN 31.8 pg (27.0-33.0); MEAN CORPUSCULAR HGB CONC 34.4 g/dl (32.0-36.5); MEAN CORPUSCULAR VOLUME 92.5 fl (80.0-96.0); PLATELET COUNT, AUTOMATED 275 10^3/uL (150-450); RED BLOOD COUNT 4.91 10^6/uL (4.30-6.10); WHITE BLOOD COUNT 11.7 10^3/uL (4.0-10.0)
[2019-06-06 02:32] LABS: EOSINOPHILS 1 % (0-3); LYMPHOCYTES 1 % (16-44); MONOCYTES 2 % (0-5); NEUTROPHILS 95 % (28-66)
[2019-06-06 02:33] LABS: PLATELET ESTIMATE NORMAL (NORMAL)
[2019-06-06 02:35] LABS: INR 1.04; PROTHROMBIN TIME 13.3 SECONDS (11.8-14.0)
[2019-06-06 02:36] LABS: PARTIAL THROMBOPLASTIN TIME 26.9 SECONDS (25.0-38.4)
[2019-06-06] MEDS ORDERED: NS 500 ML IV ONE (02:45)
[2019-06-06 03:07] LABS: ALBUMIN 4.1 GM/DL (3.2-5.2); ALT/SGPT 29 U/L (12-78); BILIRUBIN,DIRECT 0.3 MG/DL (0.0-0.2); BILIRUBIN,TOTAL 1.1 MG/DL (0.2-1.0); BLOOD UREA NITROGEN 20 MG/DL (7-18); CALCIUM LEVEL 10.1 MG/DL (8.8-10.2); CARBON DIOXIDE LEVEL 26 MEQ/L (21-32); CHLORIDE LEVEL 98 MEQ/L (98-107); CK-MB VALUE MASS < 1.0 NG/ML (<3.6); CPK CREATINE PHOSPHOKINASE 51 U/L (39-308); GLOMERULAR FILTRATION RATE > 60.0 (>35); GLUCOSE, FASTING 129 MG/DL (70-100); LIPASE 205 U/L (73-393); MB/CK RELATIVE INDEX 1.96 (< OR =4); SODIUM LEVEL 134 MEQ/L (136-145); TOTAL PROTEIN 6.4 GM/DL (6.4-8.2); TROPONIN I < 0.02 NG/ML (< 0.10)
[2019-06-06] MEDS ORDERED: ISOVUE-370 76% 100ML VIAL (Q9967) As Ordered ONE (03:19)
[2019-06-06] MEDS ORDERED: METOCLOPRAMIDE INJ 10MG/2ML VIAL (J2765) IV ONE (04:15)
--- NOTE | 2019-06-06 04:36 | REPVR ---
PROCEDURE INFORMATION: Exam: CT Abdomen And Pelvis With Contrast Exam date and time: 06/06/2019 3:14 AM Age: 78 years old Clinical indication: Bloating; Abdominal pain; Generalized; Additional info: Pain/distension TECHNIQUE: Imaging protocol: Computed tomography of the abdomen and pelvis with intravenous contrast. Radiation optimization: All CT scans at this facility use at least one of these dose optimization techniques: automated exposure control; mA and/or kV adjustment per patient size (includes targeted exams where dose is matched to clinical indication); or iterative reconstruction. Contrast material: ISO; Contrast volume: 100 ml; Contrast route: AC; COMPARISON: CT ABD PELVIS W/O FOL BY WIT 01/11/2017 11:13 AM FINDINGS: Liver: Small low attenuating lesion left hepatic lobe of liver most suggestive of cyst measures 0.7 cm. Gallbladder and bile ducts: Cholelithiasis. Pancreas: Normal. No ductal dilation. Spleen: Normal. No splenomegaly. Adrenals: Normal. No mass. Kidneys and ureters: Left renal cyst measures 1.3 cm. Stomach and bowel: Marked predominantly fluid and partial gas expansion of the stomach and prominent fluid expansion of multiple proximal to mid small bowel loops with air-fluid levels. Transition of small bowel caliber with nondistention distally. Maximum small bowel dilatation 3.9 cm. Nondistention with equivocal wall thickening of the transverse colon. Distal colonic diverticulosis. Appendix: No evidence of appendicitis. Intraperitoneal space: Small amount of free fluid in the pelvis. Vasculature: Dense calcification abdominal aorta. Lymph nodes: Unremarkable. No enlarged lymph nodes. Bladder: Bladder wall thickening. Reproductive: Prominent prostate gland size with calcification. Bones/joints: Degenerative change of the spine. There are persistent prominent areas of lucencies within pelvic bone structures and within the spine. Soft tissues: Unremarkable. IMPRESSION: 1. Abnormal bowel gas pattern concerning for distal small bowel mechanical obstruction. 2. Cholelithiasis. 3. Stable left hepatic lobe cyst.In a low-risk patient, this lesion is most likely to be benign and no further follow-up is recommended. In a high-risk patient, recommend follow-up MRI in 3-6 months (or earlier if warranted by the patient's specific clinical circumstances). 4. Stable left renal cyst.No further workup recommended. 5. Rather extensive numerous lytic destructive lesions throughout the spine and pelvic osseous structures. Findings are most suspicious for bone metastases. 6. Accentuation of prostate gland size with bladder wall thickening. 7. Colonic diverticulosis. 8. Equivocal wall thickening of transverse colon versus accentuation by nondistention. 9. Small amount of free fluid within the pelvis. Electronically signed by: Astrid Blankenship On 06/06/2019 04:36:45 AM
[2019-06-06] MEDS ORDERED: ONDANSETRON 4MG/2ML VIAL (J2405) IV PRN (05:45)
[2019-06-06] MEDS ORDERED: CYCL1CAP2 PO (05:58)
[2019-06-06] MEDS ORDERED: DEXA4TA PO (05:58)
[2019-06-06] MEDS ORDERED: MORPHINE 4 MG/ML 1ML VIAL/SYRINGE (J2270) IV ONE (06:00)
[2019-06-06] MEDS ORDERED: cloNIDine HCL 0.3 MG/24 HR PATCH TOP SCH (06:00)
[2019-06-06] MEDS ORDERED: MORPHINE 4 MG/ML 1ML VIAL/SYRINGE (J2270) IV PRN (06:00)
[2019-06-06 08:20] VITALS: BP 148/67
--- NOTE | 2019-06-06 08:58 | HPE ---
DATE OF ADMISSION: 06/06/2019 CHIEF COMPLAINT: Abdominal distention, nausea, vomiting. HISTORY OF PRESENT ILLNESS: This is an 78-year-old male who was in his usual state of health being treated for multiple myeloma on pomalidomide, cyclophosphamide and dexamethasone managed by Dr. Zbigniew Can, started this past Monday. He then developed abdominal distension after dinner this evening accompanied with nausea and vomiting. The patient denied any fever or chills, complains of 10/10 abdominal pain, which is diffuse. Rated as sharp without any radiation. Patient had a similar episode about 5 years ago when he was admitted and treated conservatively with complete resolution. Previous colonoscopy showed colonic polyps done by Dr. Thomas. Patient has a history of bilateral inguinal hernia repair. He has had intravenous Reglan with persistent vomiting at the bedside. A nasogastric tube has been ordered. Blood pressure is uncontrolled at 182 at the bedside due to severe pain and vomiting with distress. He has had no history of colonic malignancy, changes in bowel habits and had a normal bowel movement yesterday prior to presentation today according to the . He otherwise denies any fever, chills, shortness of breath, chest pain pressure or tightness. He has been increasingly fatigued since he has been on chemotherapy but still ambulating with a walker at home. In the emergency room, he was afebrile. White count was 11.7, normal lactic acid. CT abdomen and pelvis shows distal small bowel mechanical obstruction, cholelithiasis, stable left hepatic lobe cyst, left renal cyst. Numerous lytic lesions throughout the spine and pelvis suspicious for bony metastasis. Bladder wall thickening, accentuation of prostate gland size. Colonic diverticulosis, equivocal wall thickening of the transverse colon versus non-distension, versus accentuation by non-distension. Small amount of free fluid within the pelvis. Hospitalist was called to admit. Surgery, Dr. Ely has been consulted. The patient has been ordered a nasogastric tube to low intermittent suction, nothing by mouth status and intravenous fluids, antiemetics. PAST MEDICAL HISTORY: 1. Multiple myeloma. Status post VRd regimen in January 2017. Lenalidomide held due to rash currently with increasing light chains now on pomalidomide, cyclophosphamide and dexamethasone started Monday. 2. Hypertension. 3. Aortic valve disease. 4. Hypocholesterolemia. 5. Malignant melanoma of the lip. 6. Reflux disease. 7. Hyponatremia. ALLERGIES: PREDNISONE - mental status change, ALPRAZOLAM - mental status change, CELEXA - causing hyponatremia. PAST SURGICAL HISTORY: 1. Bilateral inguinal hernia repair, left done in 1992, right in 1997. 2. Repair of fractured jaw in 1974. 3. Multiple skin cancers resected. 4. Mole surgery, nasal June 2012 ,forehead and left ear May 2013, right nondenominational and right check basal cell carcinoma 2013, melanoma [id number]. 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 Dental biopsy Dr. Melgar 2016. Left temporal ear lesion removal, Dr. Burdick 2018. HOME MEDICATIONS: - aspirin 81 mg daily - atorvastatin 40 mg three times weekly - calcium vitamin D 500/200 one tablet daily - dexamethasone 20 mg as directed - Colace 100 mg as needed - dorzolamide Timolol eye drop, one drop twice a day - multivitamin one tablet daily - Zofran 40 mg every 6-8 hours as needed - MiraLAX 17 grams daily as needed - Norvasc benazepril one capsule daily - cyclophosphamide 50 mg as directed - Jyoti one tablet daily - fish oil one capsule daily - pomalidomide, one capsule daily - vitamin D, folic acid, B6, B2, B12, one tablet daily. FAMILY HISTORY: Mother at the age of 66 of coronary artery disease (CAD. Seven brothers, one living, one with abdominal malignancy at the age of 63, others of heart disease. Five sisters, one sister at the age of 1-1/2 from farm accident. Patient has a son and daughter. Father of cerebral hemorrhage in his 40s. Patient lives with his who is the healthcare proxy. Patient does not have a medical orders for life-sustaining treatment (MOLST) form at this time but stated with the emergency room nurse at the bedside that he does not want to be intubated. The is discussing with him that he should reconsider his decision. At this time, the patient is a FULL CODE as they have not signed a MOLST form. REVIEW OF SYSTEMS: Per history of present illness (HPI). 12-point system otherwise negative. PHYSICAL EXAMINATION: Vitals: Temperature 97.8, pulse 71, respiratory 16, blood pressure 152/66, 96% on room air. Generally, patient is in mild distress. He is vomiting at the bedside. No respiratory distress. No use of respiratory accessory muscles. Anicteric. No jaundice. Patient has multiple scars from prior mole surgeries on the right cheek, forehead, left cheek and the right side of the nose. He appears his stated age. Dry mucous membranes. No jugular venous distention (JVD) or thyromegaly. Lungs are clear to auscultation. No wheezing, rales or rhonchi. Air entry is equal. Heart: S1, S2, sinus rhythm. No murmurs, rubs or gallops. Abdomen is distended and doughy in appearance. No bowel sounds. EXTREMITIES: No cyanosis or clubbing. LABORATORY DATA: White count 11.7, hemoglobin 15, hematocrit 45, platelet count 275. Sodium 134, potassium 4, chloride 98, bicarbonate 26, BUN 20, creatinine 0.8, glucose 129, lactic acid 1.3, calcium 10, total bilirubin 1.1, direct bilirubin 0.3, AST 14, ALT 29, alkaline phosphatase 83, total CK 51, MB fraction less than 1. Troponin less than 0.02, total protein 6.4, albumin 4.1, lipase 205. INR 1.04, PT 13.3, PTT 26.9. IMAGING STUDIES: CT of the abdomen and pelvis: Small low attenuating lesion left hepatic lobe of the liver suggestive of cyst measures 0.7 cm. Cholelithiasis, stable left hepatic lobe cyst, stable left renal cyst. No further workup recommended. Rather extensive numerous lytic lesions throughout the spine and pelvic osseous structures, suspicious for bone metastasis. Accentuation of prostate gland size with bladder wall thickening, colonic diverticulosis. Equivocal wall thickening of transverse colon versus accentuation by non-distension. Small amount of free fluid within the pelvis. ASSESSMENT/PLAN: This is an 78-year-old male with a history of multiple myeloma diagnosed in 2017 when patient presented with a mass lesion in the cranium. Biopsy showed positive cytoma. 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 Underwent VRd regimen in January 2017 with subsequent rash caused by lenalidomide. Patient has had increasing light chain levels and is started on pomalidomide, cyclophosphamide and dexamethasone this past Monday. He presented to the emergency room with acute onset of abdominal distension, nausea, vomiting which is intractable. He was found to have a distal small bowel mechanical obstruction. Currently being admitted for the following issues: 1. Small bowel obstruction: Patient is kept nothing by mouth with IV fluid D5 half normal saline with 40 mEq of potassium at 100 per hour. Nasogastric tube to low intermittent suctioning. Judicious monitoring or potassium, magnesium and supplementation if needed. The patient's oral medications are temporarily held today due to persistent nausea and vomiting. Zofran as an antiemetic. General surgeon, Dr. Ely has been consulted. 2. Multiple myeloma with increasing light chains, currently on oral chemotherapy, pomalidomide, cyclophosphamide and dexamethasone. Patient was instructed to continue on aspirin while taking pomalidomide with re-evaluation in 3 weeks' time. Patient is managed by Dr. Can. Morning hospitalist to consult medical oncology regarding his oral chemotherapeutic drugs. 3. Hypertension: Uncontrolled due to abdominal pain and currently on IV fluids. Nasogastric tube still needs to be placed. Pain medications as needed. Topical light antihypertensives until patient's gastrointestinal (GI) absorption is improved. 4. Dyslipidemia: Hold off on atorvastatin until bowel obstruction has resolved. 5. Vitamin D deficiency: Hold supplementation until bowel obstruction has improved. 6. Deep venous thrombosis (DVT) prophylaxis with compression stockings. Due to possible need for surgical intervention, he aspirin has been held as has his chemotherapy medications temporarily. CODE STATUS: Patient indicates that he does not want to be intubated. The patient has decided on trial of cardiopulmonary resuscitation with no intubation. MOLST form still needs to be signed by patient at the bedside who is currently vomiting. MTDD
[2019-06-06] MEDS: COSOPT OCUMETER PLUS 10ML (DORZOLAMIDE/TIMOLOL) OU SCH ×2 (09:13→20:13)
[2019-06-06] MEDS: KCL 20MEQ IN D5/0.45NS 1000ML 1,000 ML IV SCH ×2 (09:13→18:24)
--- NOTE | 2019-06-06 10:21 | IPNPDOC ---
Text Note Date of Service The patient was seen on 06/06/19. NOTE Subjective: Patient is an 78-year-old male who presented to the emergency dep artment last evening with abdominal pain, vomiting, and abdominal distention. Patient was diagnosed with a small bowel obstruction. Patient has been seen by surgery who recommended nothing by mouth diet. NG tube is in place. Patient is still feeling some abdominal pain this morning and is still currently vomiting. Patient did have decrease in his vomitus overnight. Patient says he is starting to pass gas but has not had a bowel movement. Patient also has a history of multiple myeloma and has been on oral chemotherapeutic drugs that were just started. Patient otherwise feels well but is just very tired. Review of systems General: Patient denies fevers HEENT: Patient denies headaches Cardiovascular: Patient denies chest pain Respiratory: Patient denies shortness of breath, cough GI: Patient endorses abdominal pain, vomiting. : Patient denies pain or difficulty with urination Extremities: Patient denies swelling or pain in extremities Objective: Vitals: (see below) General: Alert and oriented male patient who was laying in bed when I walked in. Patient had an NG tube in place. Patient did not appear to be in any acute distress. HEENT: Normocephalic, atraumatic, moist mucous membranes. Cardiac: Regular rate and rhythm, no murmurs, normal S1, normal S2 Pulm: Clear to auscultation bilaterally. No wheezes, rhonchi, rales Abd: Slightly distended, soft but tender to palpation. No rebound tenderness. Abdomen was tympanic to percussion. Patient did have slightly hyperactive bowel sounds. Ext: No edema bilateral lower extremities Labs (see below) Images: A CT of the abdomen and pelvis with IV contrast only was performed on 06/06/2019 which was reported to show abnormal bowel gas pattern concerning for distal small bowel mechanical obstruction, cholelithiasis, stable left hepatic lobe cyst and alertness patient this lesion is most likely benign and no further follow-up is recommended. Stable left renal cyst, no follow-up workup recommended. Rather extensive numerous lytic destructive lesions to the spine and pelvic osseous structures. Findings are most suspicious for bone metastasis, attenuation of the prostate gland with bladder wall thickening, call on a diverticulosis, colonic wall thickening of the transverse colon versus attenuation by nonspecific distention, small moderate free fluid within the pelvis. Assessment: Patient is an 78-year-old male who presents with abdominal pain and distention most likely caused by a small bowel obstruction. Plan 1. Small bowel obstruction. Patient will be nothing by mouth. Dr. Ely of surgery has seen the patient. We'll continue with NG tube and continue to monitor the patient. 2. Multiple myeloma with increasing light chains. Patient is currently on oral chemotherapy. Because of small bowel obstruction this is on hold at this time. Contacted Dr. Can, medical oncology, who said to hold all chemotherapeutic agents until small bowel infection is resolved. 3. Hypertension. Uncontrolled due to abdominal pain. Topical antihypertensives are being used with clonidine patch. We will continue to monitor. 4. Dyslipidemia. Atorvastatin is on hold until resolution of bowel obstruction. 5. Vitamin D deficiency. Hold supplementation until bowel obstruction has resolved. DVT prophy: Compression stockings Dispo: Pending improvement in the patient's small bowel obstruction and advancement of diet. VS,Fishbone, I+O VS, Fishbone, I+O Laboratory Tests 06/06/19 01:47 Vital Signs Date Time Temp Pulse Resp B/P (MAP) Pulse Ox O2 Delivery O2 Flow Rate FiO2 06/06/19 09:45 141/73 06/06/19 09:13 17 06/06/19 08:20 100.4 83 94 Room Air MEGA MORTENSEN DO Jun 06, 2019 10:21
[2019-06-06 14:00] VITALS: BP 138/63
--- NOTE | 2019-06-06 18:01 | CR ---
DATE OF CONSULTATION: 06/06/2019 CHIEF COMPLAINT: Abdominal distension, nausea, vomiting. HISTORY OF PRESENT ILLNESS: The patient is an 78-year-old male with a history of multiple myeloma, currently started a new chemo regimen this past Monday, now presents with abdominal distension, nausea and vomiting that started last evening. He came in with 10/10 pain, nonstop nausea and vomiting. He did have a couple of bowel movements at home yesterday, first one was normal, the second one was slightly hard but very large. He claims that he has had bowel problems in the past with the chemo causing constipation. No blood in his stool. No diarrhea. No hematemesis and no problems with the prior colonoscopy was in 2010, which did show a couple small polyps at the time. In the emergency room (ER), CT scan did show small bowel obstruction with likely distal obstruction, possibly mechanical, no distinct transition point. He had a very distended proximal small bowel and very dilated stomach on the CT as well. Nasogastric (NG) tube has already been in place. He has had a large amount of output, and currently at the bedside, his abdomen is soft, his pain is gone, and he is feeling much improved. PAST MEDICAL HISTORY: Multiple myeloma, hypertension, aortic valve disease, hyperlipidemia, malignant melanoma of the lip, reflux disease and hyponatremia. ALLERGIES: Prednisone, alprazolam and Celexa. HOME MEDICATIONS: Please see medical record. PAST SURGICAL HISTORY: Bilateral inguinal hernia repair, fractured jaw repair, multiple skin cancer resections. SOCIAL HISTORY: Denies drug, alcohol, tobacco abuse. FAMILY HISTORY: Noncontributory. REVIEW OF SYSTEMS: Pertinent positives and negatives as stated in the HPI. PHYSICAL EXAMINATION: General: Alert and oriented times three. No acute distress. Vital signs: Temperature 99.6, pulse of 81, respirations 17, blood pressure 141/73, pulse oximetry (ox) 93% on room air. HEENT: Pupils equally round and react to light and accommodation. Heart: S1, S2, regular rate and rhythm. Lungs: Clear to auscultation bilaterally. Abdomen: Soft, slightly distended, nontender, no rebounding or guarding. No ventral hernias identified. No palpable masses. Extremities: No clubbing, cyanosis or edema. LABORATORY DATA: White count 11.7, hemoglobin 15.6, platelets 275, potassium 4, lactic acid 1.3, total bilirubin 1.1, creatinine 0.8. IMAGING STUDIES: CT abdomen and pelvis shows abnormal bowel gas pattern concerning for distal small bowel mechanical obstruction, cholelithiasis, left hepatic lobe cyst, left renal cyst, numerous lytic destructive lesions throughout the spine and pelvic bones suspicious for bone metastases (mets), enlarged prostate gland with bladder wall thickening, colonic diverticulosis, wall thickening of the transverse colon, a small amount of free fluid within the pelvis. ASSESSMENT/PLAN: The patient is an 78-year-old male with signs of likely small bowel obstruction, whether it is mechanical versus functional, this could be secondary to side effect from his chemo versus constipation versus mechanical obstruction from either a mass or internal hernia. At this time the patient is stable. He has a benign abdomen. There is no signs of peritonitis at all. He is soft, nontender, lactic acid is normal. There is no indication for emergent surgery. Plan is to monitor electrolytes and make sure those are all balanced, keep him on NG tube decompression, IV fluids, antibiotics. He can have sips and chips, and continue with ambulation. If he does not show any signs of improvement with progression of bowel movements within the next 48-72 hours, then we will consider surgical intervention. However, at this time will continue with medical treatment and see if this will resolve on its own. NEHA
[2019-06-06 22:00] VITALS: BP 127/58
[2019-06-07] MEDS: KCL 20MEQ IN D5/0.45NS 1000ML 1,000 ML IV SCH ×5 (03:22→23:34)
[2019-06-07 06:00] VITALS: BP 126/64
[2019-06-07 06:31] LABS: EOS # 0.1 10^3/uL (0.0-0.5); EOS % 2.2 % (0.0-3.0); LYMPH # 0.7 10^3/uL (1.5-5.0); LYMPH % 12.2 % (24.0-44.0); MEAN CORPUSCULAR HEMOGLOBIN 32.3 pg (27.0-33.0); MEAN CORPUSCULAR HGB CONC 33.9 g/dl (32.0-36.5); MEAN CORPUSCULAR VOLUME 95.1 fl (80.0-96.0); MONO # 0.8 10^3/uL (0.0-0.8); MONO % 13.1 % (0.0-5.0); NEUTROPHILS # 4.3 10^3/uL (1.5-8.5); NEUTROPHILS % 72.3 % (36.0-66.0); PLATELET COUNT, AUTOMATED 187 10^3/uL (150-450); RED BLOOD COUNT 3.47 10^6/uL (4.30-6.10)
[2019-06-07 06:37] LABS: HEMOGLOBIN 11.2 g/dl (13.5-17.5)
[2019-06-07 06:49] LABS: BLOOD UREA NITROGEN 20 MG/DL (7-18); CALCIUM LEVEL 7.8 MG/DL (8.8-10.2); CARBON DIOXIDE LEVEL 27 MEQ/L (21-32); CHLORIDE LEVEL 105 MEQ/L (98-107); CREATININE FOR GFR 0.64 MG/DL (0.70-1.30); GLOMERULAR FILTRATION RATE > 60.0 (>35); GLUCOSE, FASTING 125 MG/DL (70-100); MAGNESIUM LEVEL 2.1 MG/DL (1.8-2.4); POTASSIUM SERUM 3.5 MEQ/L (3.5-5.1); SODIUM LEVEL 135 MEQ/L (136-145)
[2019-06-07] MEDS: COSOPT OCUMETER PLUS 10ML (DORZOLAMIDE/TIMOLOL) OU SCH ×2 (10:18→21:11)
[2019-06-07 13:29] LABS: HEMATOCRIT 31.5 % (42.0-52.0); HEMOGLOBIN 10.4 g/dl (13.5-17.5)
[2019-06-07 14:00] VITALS: BP 164/68
--- NOTE | 2019-06-07 16:17 | IPNPDOC ---
Text Note Date of Service The patient was seen on 06/07/19. NOTE Subjective: Patient is an 78-year-old male presented to the emergency department with abdominal pain, vomiting, and abdominal distention. Patient was diagnosed with small bowel obstruction. Overnight, patient did well and his pain is better. Patient says he feels much better today and is no longer vomiting. Dr. Ely of Gen. surgery saw the patient and has advanced into clear liquids and is clamped his NG tube. Patient was tolerating these well this morning. Patient does not have any acute complaints today. Review of systems General: Patient denies fevers HEENT: Patient denies headaches Cardiovascular: Patient denies chest pain Respiratory: Patient denies shortness of breath, cough GI: Patient endorses mild abdominal pain which is improving and denies vomiting : Patient denies pain or difficulty with urination Extremities: Patient denies swelling or pain in extremities Objective: Vitals: (see below) General: Patient is an alert and oriented male who was laying in bed when I walked in the room. Patient has NG tube in place. Patient does not appear to be in any acute distress. HEENT: Normocephalic, atraumatic, moist mucous membranes. Neck: No lymphadenopathy or thyromegaly Cardiac: Regular rate and rhythm, no murmurs, normal S1, normal S2 Pulm: Clear to auscultation bilaterally. No wheezes, rhonchi, rales Abd: Mildly distended and tympanic to percussion. Mild tenderness to palpation. Ext: No edema bilateral lower extremities Labs (see below) Images: No new imaging is performed Assessment: Patient is an 6-year-old male presents with abdominal pain and distention caused by a distal small bowel obstruction. Plan 1. Small bowel obstruction. Patient was advanced to clear liquids per Dr. Ely of general surgery. Patient's NG tube has been clamped. We will continue to monitor. We appreciate Dr. Ely's help in treating the patient. 2. Multiple myeloma with increasing light chains. Dr. Can of medical oncology was contacted and advised we hold his chemotherapeutic agents until small bowel obstruction has resolved. 3. Hypertension. Blood pressure has been better controlled today. Patient has clonidine patch in place. Once patient is tolerating diet, his home medications can be restarted. 4. Dyslipidemia. Atorvastatin is on hold resolution of bowel obstruction. 5. Vitamin D deficiency. Supplementation is on hold bowel obstruction has resolved. 6. Anemia. Patient's hemoglobin and hematocrit have decreased from 15.6/45.4 - 11.2/33 this morning. Repeat at 1300 was 10.4/31.5. This may be due to dilution as the patient is on IV fluids and does not show any signs of bleeding. We will continue to monitor for signs of bleeding and hemodynamic instability. DVT prophy: Compression stockings Dispo: Pending improvement of the patient's small bowel obstruction and advancement of his diet. VS,Fishbone, I+O VS, Fishbone, I+O Laboratory Tests 06/07/19 05:57 06/07/19 13:01 Vital Signs Date Time Temp Pulse Resp B/P (MAP) Pulse Ox O2 Delivery O2 Flow Rate FiO2 06/07/19 06:00 98.8 70 18 126/64 (84) 95 06/06/19 14:00 Room Air I&O- Last 24 Hours up to 6 AM 06/07/19 05:59 Intake Total 1920 ml Output Total 1950 ml Balance -30 ml MEGA MORTENSEN DO Jun 07, 2019 16:17
[2019-06-07 22:00] VITALS: BP 159/82
[2019-06-07 22:18] VITALS: BP 144/68
[2019-06-08 06:00] VITALS: BP 150/70
[2019-06-08 07:33] LABS: EOS # 0.1 10^3/uL (0.0-0.5); EOS % 1.5 % (0.0-3.0); HEMATOCRIT 33.2 % (42.0-52.0); HEMOGLOBIN 11.1 g/dl (13.5-17.5); LYMPH # 0.6 10^3/uL (1.5-5.0); LYMPH % 8.7 % (24.0-44.0); MEAN CORPUSCULAR HEMOGLOBIN 32.3 pg (27.0-33.0); MEAN CORPUSCULAR HGB CONC 33.4 g/dl (32.0-36.5); MEAN CORPUSCULAR VOLUME 96.5 fl (80.0-96.0); MONO % 14.1 % (0.0-5.0); NEUTROPHILS # 5.5 10^3/uL (1.5-8.5); PLATELET COUNT, AUTOMATED 157 10^3/uL (150-450); RED BLOOD COUNT 3.44 10^6/uL (4.30-6.10); WHITE BLOOD COUNT 7.3 10^3/uL (4.0-10.0)
[2019-06-08 07:52] LABS: BLOOD UREA NITROGEN 7 MG/DL (7-18); CALCIUM LEVEL 8.3 MG/DL (8.8-10.2); CARBON DIOXIDE LEVEL 24 MEQ/L (21-32); CHLORIDE LEVEL 104 MEQ/L (98-107); CREATININE FOR GFR 0.59 MG/DL (0.70-1.30); GLOMERULAR FILTRATION RATE > 60.0 (>35); GLUCOSE, FASTING 112 MG/DL (70-100); MAGNESIUM LEVEL 2.1 MG/DL (1.8-2.4); POTASSIUM SERUM 4.1 MEQ/L (3.5-5.1); SODIUM LEVEL 132 MEQ/L (136-145)
[2019-06-08] MEDS ORDERED: DOCUSATE SODIUM 100 MG CAP PO PRN (10:15)
[2019-06-08] MEDS ORDERED: MIRALAX *UNIT DOSE* 17GM PACKET PO PRN (10:15)
--- NOTE | 2019-06-08 10:23 | IPNPDOC ---
Text Note Date of Service The patient was seen on 06/07/19. NOTE No acute events overnight. NG output has decreased drastically. His pain is all gone, and he is passing flatus. Amb in [place], no BM yet. VSSAF NAD abd - soft, slightly distended, non tender A) 78y/o male with distal SBO that appears to be resolving, could be secondary to side effect from chemo vs. partial mechanical obstruction. P) clamp NGT clq diet amb in [place] await return of BM Moe Ely DO VS,Fishbone, I+O VS, Fishbone, I+O Laboratory Tests 06/07/19 13:01 06/08/19 07:02 Vital Signs Date Time Temp Pulse Resp B/P (MAP) Pulse Ox O2 Delivery O2 Flow Rate FiO2 06/08/19 06:00 98.9 67 18 150/70 (96) 97 Room Air I&O- Last 24 Hours up to 6 AM 06/08/19 05:59 Intake Total 3620 ml Output Total 2655 ml Balance 965 ml DRE ELY DO Jun 08, 2019 10:23
--- NOTE | 2019-06-08 10:25 | IPNPDOC ---
Text Note Date of Service The patient was seen on 06/08/19. NOTE No acute events overnight. Still no BM. He is passing flatus, and has not had any nausea or emesis with the NG clamped. His pain is all gone. VSSAF NAD abd - soft, slightly distended, non tender A) 78y/o male with distal SBO that appears to be resolving, could be secondary to side effect from chemo vs. partial mechanical obstruction. P) d/c NGT low residue diet diet amb in [place] await return of BM safe for d/c after a BM Moe Ely DO VS,Darnellbone, I+O VS, Darnellbone, I+O Laboratory Tests 06/07/19 13:01 06/08/19 07:02 Vital Signs Date Time Temp Pulse Resp B/P (MAP) Pulse Ox O2 Delivery O2 Flow Rate FiO2 06/08/19 06:00 98.9 67 18 150/70 (96) 97 Room Air I&O- Last 24 Hours up to 6 AM 06/08/19 05:59 Intake Total 3620 ml Output Total 2655 ml Balance 965 ml DRE ELY DO Jun 08, 2019 10:24
[2019-06-08] MEDS ORDERED: ONDANSETRON 4 MG ORAL DISINTEGRATING TAB (Q0162 PER 1MG) PO PRN (10:30)
--- NOTE | 2019-06-08 11:02 | IPNPDOC ---
Text Note Date of Service The patient was seen on 06/08/19. NOTE Subjective: Patient is an 78-year-old male presented to the ED with abdominal pain, vomiting, and abdominal distention. Patient did well yesterday with clear liquids and NG tube clamped. Patient's been ambulating the halls without difficulty. Review of systems General: Patient denies fevers HEENT: Patient denies headaches Cardiovascular: Patient denies chest pain Respiratory: Patient denies shortness of breath, cough GI: Patient endorses improvement in his abdominal pain. Patient has not vomited. Extremities: Patient denies swelling or pain in extremities Objective: Vitals: (see below) General: Alert and oriented male patient who was sitting in the chair when I wal ked in the room. Patient had been walking the halls with his earlier in the morning and was not having any difficulty. Patient was in no acute distress. HEENT: Normocephalic, atraumatic, moist mucous membranes. Cardiac: Regular rate and rhythm, no murmurs, normal S1, normal S2 Pulm: Clear to auscultation bilaterally. No wheezes, rhonchi, rales Abd: Soft with no tenderness. Abdomen was nondistended. Ext: No edema bilateral lower extremities Labs (see below) Images: No new imaging has been performed. Assessment: Patient is an 78-year-old male who presented to the emergency department with worsening abdominal pain and distention. Patient was diagnosed with small bowel obstruction. Patient is doing better. Plan 1. Small bowel obstruction. In speaking with Dr. Ely of general surgery, patient's NG tube will be removed, patient will be placed on a low residual diet and once he has a bowel movement, he'll be able to be discharged. Home medications have been continued with the exception of his chemotherapeutic medication as we would like him to be fully free of the obstruction prior to restarting this. 2. Multiple myeloma with increasing light change. I spoke with Dr. Can of medical oncology and advised to hold her Amaryl therapeutic agent small bowel surgeon has resolved. 3. Hypertension. Patient's clonidine patch has been discontinued and oral hypertensives have been resumed. 4. Dyslipidemia. Atorvastatin has been restarted. 5. Vitamin D deficiency. Supplementation has been restarted. 6. Anemia. Patient's hemoglobin has remained stable. It appears that this was due to dilution with IV fluids. IV fluids have been discontinued. DVT prophy: Compression stockings and ambulation Dispo: Pending tolerating low residual diet and bowel movement. VS,Fishbone, I+O VS, Fishbone, I+O Laboratory Tests 06/07/19 13:01 06/08/19 07:02 Vital Signs Date Time Temp Pulse Resp B/P (MAP) Pulse Ox O2 Delivery O2 Flow Rate FiO2 06/08/19 06:00 98.9 67 18 150/70 (96) 97 Room Air I&O- Last 24 Hours up to 6 AM0 06/08/19 06:00 Intake Total 3030 ml Output Total 2475 ml Balance 555 ml MEGA MORTENSEN DO Jun 08, 2019 11:02
[2019-06-08] MEDS: BENAZEPRIL 20 MG TAB PO SCH (12:25)
[2019-06-08] MEDS: COSOPT OCUMETER PLUS 10ML (DORZOLAMIDE/TIMOLOL) OU SCH ×2 (12:26→20:23)
[2019-06-08] MEDS: amLODIPine 10 MG TAB PO SCH (12:26)
[2019-06-08] MEDS: ASPIRIN 81 MG ENTERIC TAB PO SCH (12:26)
[2019-06-08] MEDS: CALCIUM/VITAMIN D 500 MG TAB PO SCH (12:26)
[2019-06-08] MEDS: MULTIVITAMINS/MINERALS THERAP 1 TAB PO SCH (12:29)
[2019-06-08 14:00] VITALS: BP 132/55
[2019-06-08 22:00] VITALS: BP 139/63
[2019-06-09 06:00] VITALS: BP 150/71
[2019-06-09 06:05] LABS: BASO % 0.2 % (0.0-1.0); EOS # 0.2 10^3/uL (0.0-0.5); EOS % 3.6 % (0.0-3.0); HEMATOCRIT 30.5 % (42.0-52.0); HEMOGLOBIN 10.5 g/dl (13.5-17.5); LYMPH # 0.8 10^3/uL (1.5-5.0); LYMPH % 14.9 % (24.0-44.0); MEAN CORPUSCULAR HEMOGLOBIN 32.6 pg (27.0-33.0); MEAN CORPUSCULAR HGB CONC 34.4 g/dl (32.0-36.5); MEAN CORPUSCULAR VOLUME 94.7 fl (80.0-96.0); MONO # 0.8 10^3/uL (0.0-0.8); NEUTROPHILS # 3.7 10^3/uL (1.5-8.5); NEUTROPHILS % 67.1 % (36.0-66.0); PLATELET COUNT, AUTOMATED 153 10^3/uL (150-450); RED BLOOD COUNT 3.22 10^6/uL (4.30-6.10); WHITE BLOOD COUNT 5.6 10^3/uL (4.0-10.0)
[2019-06-09 06:35] LABS: BLOOD UREA NITROGEN 7 MG/DL (7-18); CALCIUM LEVEL 8.3 MG/DL (8.8-10.2); CARBON DIOXIDE LEVEL 24 MEQ/L (21-32); CHLORIDE LEVEL 106 MEQ/L (98-107); CREATININE FOR GFR 0.54 MG/DL (0.70-1.30); GLOMERULAR FILTRATION RATE > 60.0 (>35); GLUCOSE, FASTING 100 MG/DL (70-100); MAGNESIUM LEVEL 2.2 MG/DL (1.8-2.4); POTASSIUM SERUM 4.1 MEQ/L (3.5-5.1); SODIUM LEVEL 134 MEQ/L (136-145)
--- NOTE | 2019-06-09 10:33 | IPNPDOC ---
Text Note Date of Service The patient was seen on 06/09/19. NOTE No acute events overnight. Positive BM. He is passing flatus, and has not had any nausea or emesis. No pain. VSSAF NAD abd - soft, slightly distended, non tender A) 78y/o male with distal SBO that appears to be resolved, could be secondary to side effect from chemo vs. partial mechanical obstruction. P) low residue diet diet amb in [facility] for d/c Moe Ely DO VS,Fishbone, I+O VS, Fishbone, I+O Laboratory Tests 06/09/19 05:42 Vital Signs Date Time Temp Pulse Resp B/P (MAP) Pulse Ox O2 Delivery O2 Flow Rate FiO2 06/09/19 06:00 97.7 69 20 150/71 (97) 98 06/08/19 14:00 Room Air I&O- Last 24 Hours up to 6 AM 06/09/19 06:00 Intake Total 2343 ml Output Total 2600 ml Balance -257 ml DRE ELY DO Jun 09, 2019 10:33
[2019-06-09 11:12] VITALS: BP 150/71
[2019-06-09] MEDS: CALCIUM/VITAMIN D 500 MG TAB PO SCH (11:12)
[2019-06-09] MEDS: MULTIVITAMINS/MINERALS THERAP 1 TAB PO SCH (11:12)
[2019-06-09] MEDS: amLODIPine 10 MG TAB PO SCH (11:12)
[2019-06-09] MEDS: BENAZEPRIL 20 MG TAB PO SCH (11:12)
[2019-06-09] MEDS: COSOPT OCUMETER PLUS 10ML (DORZOLAMIDE/TIMOLOL) OU SCH (11:13)
[2019-06-09] MEDS: ASPIRIN 81 MG ENTERIC TAB PO SCH (11:13)
--- NOTE | 2019-06-09 14:04 | DS.PDOC ---
Discharge Summary General Date of Admission Jun 06, 2019 at 04:49 Date of Discharge 06/09/19 Discharge Summary PROCEDURES PERFORMED DURING STAY: [None]. DISCHARGE DIAGNOSES: 1. function small bowel obstruction SECONDARY DIAGNOSES # Multiple myeloma. Status post VRd regimen in January 2017. Lenalidomide held due to rash currently with increasing light chains now on pomalidomide, cyclophosphamide and dexamethasone started Monday. # Hypertension. # Aortic valve disease. # Hypocholesterolemia. # Malignant melanoma of the lip. #Reflux disease. COMPLICATIONS/CHIEF COMPLAINT: Small Bowel Obstruction. HISTORY OF PRESENT ILLNESS: This is an 78-year-old male who was in his usual state of health being treated for multiple myeloma on pomalidomide, cyclophosphamide and dexamethasone managed by Dr. Zbigniew Can, started this past Monday. He then developed abdominal distension after dinner this ev ening accompanied with nausea and vomiting. The patient denied any fever or chills, complains of 10/10 abdominal pain, which is diffuse. Rated as sharp without any radiation. Patient had a similar episode about 5 years ago when he was admitted and treated conservatively with complete resolution. Previous colonoscopy showed colonic polyps done by Dr. Thomas. Patient has a history of bilateral inguinal hernia repair. He has had intravenous Reglan with persistent vomiting at the bedside. A nasogastric tube has been ordered. Blood pressure is uncontrolled at 182 at the bedside due to severe pain and vomiting with distress. He has had no history of colonic malignancy, changes in bowel habits and had a normal bowel movement yesterday prior to presentation today according to the . He otherwise denies any fever, chills, shortness of breath, chest pain pressure or tightness. He has been increasingly fatigued since he has been on chemotherapy but still ambulating with a walker at home. In the emergency room, he was afebrile. White count was 11.7, normal lactic acid. CT abdomen and pelvis shows distal small bowel mechanical obstruction, cholelithiasis, stable left hepatic lobe cyst, left renal cyst. Numerous lytic lesions throughout the spine and pelvis suspicious for bony metastasis. Bladder wall thickening, accentuation of prostate gland size. Colonic diverticulosis, equivocal wall thickening of the transverse colon versus non-distension, versus accentuation by non-distension. Small amount of free fluid within the pelvis. Hospitalist was called to admit. HOSPITAL COURSE: 1. Small bowel obstruction - responded well to medical management - managed by surgery - assistance appreciated 2. Multiple myeloma with increasing light change. Spoke with Dr. Can of medical oncology and advised to hold Amaryl therapeutic agent small bowel surgeon has resolved. 3. Hypertension. Patient's clonidine patch has been discontinued and oral hypertensives have been resumed. 4. Dyslipidemia. Atorvastatin has been restarted. 5. Vitamin D deficiency. Supplementation has been restarted. 6. Anemia. Patient's hemoglobin has remained stable. It appears that this was due to dilution with IV fluids. IV fluids have been discontinued. DISCHARGE MEDICATIONS: Please see below. ALLERGIES: Please see below. PHYSICAL EXAMINATION ON DISCHARGE: VITAL SIGNS: Please see below. GENERAL: NAD, sitting comfortably in chair HEENT: NC/AT Lungs: CTA B/L HearT: +S1S2 Abd: soft, NT, +BS Ext: no edema LABORATORY DATA: Please see below. ACTIVITY: [As tolerated]. DISPOSITION: Discharge home ITEMS TO FOLLOWUP ON ON OUTPATIENT: 1. Follow up PCP, oncology and surgery as scheduled. DISCHARGE CONDITION: [Stable]. TIME SPENT ON DISCHARGE: 35 minutes. Vital Signs/I&Os Vital Signs Date Time Temp Pulse Resp B/P (MAP) Pulse Ox O2 Delivery O2 Flow Rate FiO2 06/09/19 11:12 150/71 06/09/19 11:12 69 06/09/19 06:00 97.7 20 98 06/08/19 14:00 Room Air I&O- Last 24 Hours up to 6 AM 06/09/19 06:00 Intake Total 2343 ml Output Total 2600 ml Balance -257 ml Laboratory Data Labs 24H Laboratory Tests 2 06/09/19 05:42: Immature Granulocyte % (Auto) 0.2, Neutrophils (%) (Auto) 67.1H, Lymphocytes (%) (Auto) 14.9L, Monocytes (%) (Auto) 14.0H, Eosinophils (%) (Auto) 3.6H, Basophils (%) (Auto) 0.2, Neutrophils # (Auto) 3.7, Lymphocytes # (Auto) 0.8L, Monocytes # (Auto) 0.8, Eosinophils # (Auto) 0.2, Basophils # (Auto) 0.0, Nucleated Red Blood Cells % (auto) 0.0, Anion Gap 4L, Glomerular Filtration Rate > 60.0, Calcium Level 8.3L, Magnesium Level 2.2 CBC/BMP Laboratory Tests 06/09/19 05:42 Discharge Medications Scheduled Amlodipine Besylate/Benazepril (Amlodipine-Benazepril 10-40 mg) 1 Cap Cap, 1 CAP PO DAILY, (Reported) Aspirin (Aspirin EC) 81 Mg Tab, 81 MG PO DAILY, (Reported) Atorvastatin Calcium (Atorvastatin Calcium) 40 Mg Tab, 40 MG PO 3XW, (Reported) MONDAY, MONDAY, MONDAY Calcium Carbonate/Vitamin D3 (Oyster Shell 500-Vit D3 200 Tb) 1 Tab Tab, 1 TAB PO DAILY, (Reported) Cyclophosphamide (Cyclophosphamide) 50 Mg Capsule, 50 MG PO ASDIRECTED for myeloma Take 500 mg = 10 tablets po once per week together with decadron Dexamethasone (Dexamethasone) 4 Mg Tablet, 40 MG PO 1XWK, (Reported) 40MG = 10 TABLETS TAKEN ON MONDAYS Dorzolamide HCl/Timolol Maleat (Dorzolamide-Timolol Eye Drops) 10 Ml Drops, 1 DROP OU BID, (Reported) Fexofenadine/Pseudoephedrine (Jyoti-D 24 Hour Tablet) 1 Each Tab.er.24h, 1 TAB PO DAILY, (Reported) Multivitamins (Thera M Plus Tablet) 1 Tab Tab, 1 TAB PO DAILY, (Reported) Big [place]-3S/Dha/Epa/Fish Oil (Fish Oil EC 1,200 mg Softgel) 1 Cap Cap, 1,200 MG PO DAILY, (Reported) Pomalidomide (Pomalyst) 3 Mg Capsule, 1 CAP PO DAILY for myeloma Take 3 mg po daily X 21 days, followed by 7 days without pomalyst, then repeat Scheduled PRN Docusate Sodium (Docusate Sodium) 100 Mg Capsule, 100 MG PO DAILY PRN for CONSTIPATION, (Reported) Ondansetron (Ondansetron Odt) 4 Mg Tab.rapdis, 4 MG PO Q6-8HP PRN for nausea/vomiting Polyethylene Glycol 3350 (Miralax) 119 Gm Powder, 17 GRAM PO DAILY PRN for CONSTIPATION, (Reported) DISSOLVE IN WATER Allergies Coded Allergies: alprazolam (Verified Adverse Reaction, Intermediate, hallucinations, 07/12/18) citalopram (Verified Adverse Reaction, Intermediate, akathesia, mental s tatus changes, 07/12/18) prednisone (Verified Adverse Reaction, Intermediate, mental changes, ) VERONICA QUINN MD Jun 09, 2019 14:04
[2019-06-10] MEDS ORDERED: ATORVASTATIN 20 MG TAB PO SCH (21:00)
== END 2019-06-09 14:07 | disposition home or self-care (01) | DRG 389 ==
LOC: M ED 01:02 → M ED INP 04:49 → ENRESERV 05:46 → M MSPAV 08:28
PROVIDERS: ADMIT General Practice; ATTEND Internal Medicine
DX: K56.609 Unspecified intestinal obstruction, unspecified as to partial versus complete obstruction (principal); C90.00 Multiple myeloma not having achieved remission; I10 Essential (primary) hypertension; E55.9 Vitamin D deficiency, unspecified; K21.9 Gastro-esophageal reflux disease without esophagitis; Z79.899 Other long term (current) drug therapy; K57.30 Diverticulosis of large intestine without perforation or abscess without bleeding; K80.20 Calculus of gallbladder without cholecystitis without obstruction; N28.1 Cyst of kidney, acquired; E78.5 Hyperlipidemia, unspecified; D64.9 Anemia, unspecified; Z88.8 Allergy status to other drugs, medicaments and biological substances; Z85.828 Personal history of other malignant neoplasm of skin

== ENCOUNTER → 2019-08-05 | Outpatient (CLI) | payer MEDICARE, OTHER ==
[~2019-08-05] MED LIST changes: +LACT10SO3 PO
[2019-08-05 15:11] LABS: BASO # 0.1 10^3/uL (0.0-0.2); BASO % 1.6 % (0.0-1.0); EOS # 0.7 10^3/uL (0.0-0.5); EOS % 11.5 % (0.0-3.0); HEMATOCRIT 38.4 % (42.0-52.0); LYMPH # 0.8 10^3/uL (1.5-5.0); LYMPH % 13.7 % (24.0-44.0); MEAN CORPUSCULAR HEMOGLOBIN 32.7 pg (27.0-33.0); MEAN CORPUSCULAR HGB CONC 33.9 g/dl (32.0-36.5); MEAN CORPUSCULAR VOLUME 96.7 fl (80.0-96.0); MONO # 1.7 10^3/uL (0.0-0.8); MONO % 30.1 % (0.0-5.0); NEUTROPHILS # 2.4 10^3/uL (1.5-8.5); NEUTROPHILS % 42.2 % (36.0-66.0); PLATELET COUNT, AUTOMATED 290 10^3/uL (150-450); RED BLOOD COUNT 3.97 10^6/uL (4.30-6.10); WHITE BLOOD COUNT 5.6 10^3/uL (4.0-10.0)
[2019-08-05 15:40] LABS: ALBUMIN 3.4 GM/DL (3.2-5.2); ALT/SGPT 28 U/L (12-78); BILIRUBIN,TOTAL 0.5 MG/DL (0.2-1.0); BLOOD UREA NITROGEN 9 MG/DL (7-18); CALCIUM LEVEL 9.2 MG/DL (8.8-10.2); CARBON DIOXIDE LEVEL 26 MEQ/L (21-32); CHLORIDE LEVEL 101 MEQ/L (98-107); CREATININE FOR GFR 0.58 MG/DL (0.70-1.30); GLOMERULAR FILTRATION RATE > 60.0 (>35); GLUCOSE, FASTING 94 MG/DL (70-100); IMMUNOGLOBULIN A 13.9 MG/DL (70-400); IMMUNOGLOBULIN G 231 MG/DL (681-1648); IMMUNOGLOBULIN M 5.4 MG/DL (40-230); POTASSIUM SERUM 4.2 MEQ/L (3.5-5.1); SODIUM LEVEL 133 MEQ/L (136-145); TOTAL PROTEIN 5.8 GM/DL (6.4-8.2)
[2019-08-07 00:06] LABS: FREE LAMBDA LIGHT CHAINS SERUM 1.8 mg/L (5.7-26.3); KAPPA/LAMBDA RATIO SERUM 41.67 (0.26-1.65)
== END ==
LOC: M WUC 11:25
PROVIDERS: ATTEND Internal Medicine Hematology
DX: C90.00 Multiple myeloma not having achieved remission (principal)

== ENCOUNTER → 2019-08-26 | Outpatient (CLI) | payer MEDICARE, OTHER ==
[~2019-08-26] MED LIST changes: +VITA-112 PO
[2019-08-26 16:45] LABS: BASO % 0.4 % (0.0-1.0); EOS # 0.5 10^3/uL (0.0-0.5); EOS % 9.9 % (0.0-3.0); HEMATOCRIT 37.2 % (42.0-52.0); HEMOGLOBIN 12.6 g/dl (13.5-17.5); LYMPH # 0.6 10^3/uL (1.5-5.0); LYMPH % 13.5 % (24.0-44.0); MEAN CORPUSCULAR HEMOGLOBIN 32.9 pg (27.0-33.0); MEAN CORPUSCULAR HGB CONC 33.9 g/dl (32.0-36.5); MEAN CORPUSCULAR VOLUME 97.1 fl (80.0-96.0); MONO # 1.3 10^3/uL (0.0-0.8); MONO % 27.8 % (0.0-5.0); NEUTROPHILS # 2.3 10^3/uL (1.5-8.5); PLATELET COUNT, AUTOMATED 240 10^3/uL (150-450); RED BLOOD COUNT 3.83 10^6/uL (4.30-6.10); WHITE BLOOD COUNT 4.8 10^3/uL (4.0-10.0)
[2019-08-26 18:23] LABS: ALBUMIN 3.2 GM/DL (3.2-5.2); ALT/SGPT 22 U/L (12-78); BILIRUBIN,TOTAL 0.4 MG/DL (0.2-1.0); BLOOD UREA NITROGEN 9 MG/DL (7-18); CALCIUM LEVEL 8.9 MG/DL (8.8-10.2); CARBON DIOXIDE LEVEL 27 MEQ/L (21-32); CHLORIDE LEVEL 102 MEQ/L (98-107); CREATININE FOR GFR 0.49 MG/DL (0.70-1.30); GLOMERULAR FILTRATION RATE > 60.0 (>35); GLUCOSE, FASTING 127 MG/DL (70-100); IMMUNOGLOBULIN A 15.6 MG/DL (70-400); IMMUNOGLOBULIN G 244 MG/DL (681-1648); IMMUNOGLOBULIN M 6.6 MG/DL (40-230); POTASSIUM SERUM 4.1 MEQ/L (3.5-5.1); SODIUM LEVEL 133 MEQ/L (136-145); TOTAL PROTEIN 5.4 GM/DL (6.4-8.2)
[2019-08-29 00:09] LABS: FREE KAPPA LIGHT CHAINS SERUM 61.3 mg/L (3.3-19.4); FREE LAMBDA LIGHT CHAINS SERUM 2.9 mg/L (5.7-26.3); KAPPA/LAMBDA RATIO SERUM 21.14 (0.26-1.65)
== END ==
LOC: M WUC 11:20
PROVIDERS: ATTEND Internal Medicine Hematology
DX: Z85.79 Personal history of other malignant neoplasms of lymphoid, hematopoietic and related tissues (principal)

== ENCOUNTER → 2019-09-03 | Outpatient (CLI) | payer MEDICARE, OTHER ==
--- NOTE | 2019-09-06 09:32 | RADONC ---
RADIATION ONCOLOGY CONSULTATION NOTE: DATE: 09/03/2019 CHART NUMBER: [id number] DIAGNOSIS: Basal cell carcinoma of nose and left cheek. ECOG PERFORMANCE STATUS: 0 Mr. Saab is a very pleasant 79-year-old white male with the diagnosis of what appears to be multiple basal cell carcinomas involving his nose and cheek who is presenting to us today for consideration of postoperative radiation therapy to these areas in attempt to achieve local control for positive margins. HISTORY OF PRESENT ILLNESS: The patient was in his usual state of health but found to have some suspicious nodules present over his nasal tip as well as nasal dorsum and left cheek. On 08/09/2019, the patient underwent excision and pathology revealed basal cell carcinoma both superficial and nodular types. Each of the samples showed lesions extending to the biopsy base. Of note, the pathology report, as well as referral letter referred to right cheek involvement and biopsy site. Examination of the patient shows a biopsy area on the left cheek, however. The patient was asked by me and my nurse multiple times to confirm that the area we are interested in is the left cheek and not the right cheek. There are no biopsy sites present on the cheek and the patient is confident. I therefore, suspect that this is a typo and that the area of the biopsy site which is clearly visible and now photographed, is on the left cheek and therefore, we will be addressing the left cheek and the nose. PAST MEDICAL HISTORY: The patient's past medical history is positive for a melanoma of the right cheek in 2015 at the age of 73. 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 Patient reports having glaucoma and hypertension. He also as a diagnosis of multiple myeloma. ALLERGIES: Patient is allergic to ALPRAZOLAM, CELEXA, CITALOPRAM and PREDNISONE. SOCIAL HISTORY: The patient quit smoking in 1982. He does not abuse alcohol. FAMILY HISTORY: The patient's family history is negative for skin cancers or other malignancies. REVIEW OF SYSTEMS: The patient's review of systems is positive for dental problems, but is otherwise noncontributory. He denies nausea, vomiting, fevers, chills, night sweats, diplopia, headaches, anxiety or depression, anorexia, weight loss, visual disturbances, chest pain, urinary or bowel difficulties, bone pain, or neurological problems. PHYSICAL EXAMINATION: Patient is a well-developed, well nourished 79-year-old white male in no acute distress. HEENT: Normocephalic, atraumatic. Extraocular movements are intact. There are notable biopsy sites present over the tip of his nose as well as the nasal alar groove and the left cheek. This is consistent with his history. There is no palpable preauricular, cervical, supraclavicular or infraclavicular lymph adenopathy present. Further examination was deferred as per COVID-19 precautions. ASSESSMENT: Clearly the patient is a candidate for external beam radiation therapy and I have so informed him. I discussed with the patient in detail the logistics of treatment planning, clinical setup simulation and daily radiation treatments. I have discussed the risks of treatments as well as the benefits. I have scheduled the patient for electron setup simulation and treatments will begin subsequently. Thank you for allowing us to participate in the care of this very pleasant gentleman. If I could be of any further assistance, please feel free to contact me anytime. As always, with warm regards, cc: MD Lalo Suarez MD Frank Rhode, MD MTDD
== END ==
LOC: M ONCR 08:54
PROVIDERS: ATTEND Radiology Radiation Oncology
DX: C44.311 Basal cell carcinoma of skin of nose (principal); C44.319 Basal cell carcinoma of skin of other parts of face

== ENCOUNTER 2019-09-12 10:41 | Outpatient (RCR) | payer MEDICARE, OTHER ==
--- NOTE | 2019-09-19 23:46 | RADONC ---
RADIATION ONCOLOGY SIMULATION NOTE DATE: 09/12/2019 CHART NUMBER: [id number] Mr. Saab was taken to the linear accelerator today for clinical setup of his electron beam nose and left cheek abbasi. Setup was accomplished without difficulty or discomfort. Radiation treatment planning is underway and radiation treatments will begin subsequently. An immobilization device was created and will be used throughout the course of treatment. It was created without difficulty or discomfort. I was clinically present throughout the course of clinical setup simulation.
[2019-09-20] MEDS ORDERED: POMA3CAP PO (12:15)
[2019-09-20] MEDS ORDERED: LACT10SO3 PO (14:13)
[2019-09-23] MEDS ORDERED: LACT10SO3 PO (09:01)
== END 2019-09-15 ==
LOC: M ONCR 10:41
PROVIDERS: ATTEND Radiology Radiation Oncology
DX: C44.301 Unspecified malignant neoplasm of skin of nose (principal)

== ENCOUNTER → 2019-09-23 | Outpatient (CLI) | payer MEDICARE, OTHER ==
[2019-09-23 10:31] LABS: BASO # 0.1 10^3/uL (0.0-0.2); BASO % 1.3 % (0.0-1.0); EOS # 0.5 10^3/uL (0.0-0.5); EOS % 13.8 % (0.0-3.0); HEMATOCRIT 36.7 % (42.0-52.0); HEMOGLOBIN 12.8 g/dl (13.5-17.5); LYMPH # 0.8 10^3/uL (1.5-5.0); LYMPH % 21.5 % (24.0-44.0); MEAN CORPUSCULAR HEMOGLOBIN 33.6 pg (27.0-33.0); MEAN CORPUSCULAR HGB CONC 34.9 g/dl (32.0-36.5); MEAN CORPUSCULAR VOLUME 96.3 fl (80.0-96.0); MONO # 1.1 10^3/uL (0.0-0.8); MONO % 28.9 % (0.0-5.0); NEUTROPHILS # 1.3 10^3/uL (1.5-8.5); PLATELET COUNT, AUTOMATED 205 10^3/uL (150-450); RED BLOOD COUNT 3.81 10^6/uL (4.30-6.10); WHITE BLOOD COUNT 3.9 10^3/uL (4.0-10.0)
[2019-09-23 11:06] LABS: ALBUMIN 3.4 GM/DL (3.2-5.2); ALT/SGPT 23 U/L (12-78); BILIRUBIN,TOTAL 0.5 MG/DL (0.2-1.0); BLOOD UREA NITROGEN 10 MG/DL (7-18); CALCIUM LEVEL 8.9 MG/DL (8.8-10.2); CARBON DIOXIDE LEVEL 26 MEQ/L (21-32); CHLORIDE LEVEL 102 MEQ/L (98-107); CREATININE FOR GFR 0.48 MG/DL (0.70-1.30); GLOMERULAR FILTRATION RATE > 60.0 (>35); GLUCOSE, FASTING 92 MG/DL (70-100); POTASSIUM SERUM 4.1 MEQ/L (3.5-5.1); SODIUM LEVEL 134 MEQ/L (136-145); TOTAL PROTEIN 5.8 GM/DL (6.4-8.2)
[2019-09-24 17:07] LABS: FREE LAMBDA LIGHT CHAINS SERUM 3.3 mg/L (5.7-26.3); KAPPA/LAMBDA RATIO SERUM 20.61 (0.26-1.65)
== END ==
LOC: M WUC 08:03
PROVIDERS: ATTEND Internal Medicine Hematology
DX: C90.00 Multiple myeloma not having achieved remission (principal)

== ENCOUNTER → 2019-10-07 | Outpatient (CLI) | payer MEDICARE, OTHER ==
[~2019-10-07] MED LIST changes: +E-Z-GAS II EFFERVESCENT PACKET (SODIUM BICARB./CITRIC ACID/SIMETHICONE) As Ordered ONE; +E-Z-HD 98% w/w 340GM SUSP BTL As Ordered ONE; +E-Z-PAQUE 96% w/w SUSP 176GM BTL As Ordered ONE
--- NOTE | 2019-10-07 19:37 | REP ---
Examination Requested: Esophagram Barium Swallow Reason For Exam/Comment: Dysphasia Esophagram: The procedure was performed DIMPLE Eisenberg, under the direct supervision of Dr. Wang. The images were reviewed with Dr. aWng. A single PA chest x-ray is submitted as a printer operator film. The superior mediastinal structures are midline. The heart size is within normal limits. There appears to be a pulmonary nodule in the right middle lobe, and a CT chest is recommended for further evaluation. Liquid barium and gas producing granules were given in the erect position as well as liquid barium in the prone oblique position, in order to perform a double contrast esophagram examination. Oral and pharyngeal stages of the examination demonstrated laryngeal penetration. Esophageal transport is efficient and there is no esophagitis, stricture, or mucosal ring noted. There appears to be osteophyte formation on the anterior aspect of the C5-6 and C6-7 vertebral bodies indenting the posterior aspect of the esophagus. Tertiary contractions were visualized during the course of the exam. There is a small hiatal hernia noted. Gastroesophageal reflux was not visualized during the course of the exam. Impression: 1. Nodule in the right middle lobe of the lung, a CT chest is recommended for further evaluation. 2. Tertiary contractions. 3. Small hiatal hernia. 0.3 minutes of fluoroscopy time was utilized for this procedure. Some fluoroscopic images are performed with last image hold technology. These images require no additional radiation. Reviewed by DIMPLE Hobbs 10/07/2019 03:26 P Electronically Signed by Yinka Wang MD 10/07/2019 07:28 P
== END ==
LOC: M RAD 08:22
PROVIDERS: ATTEND Internal Medicine Gastroenterology
DX: R13.19 Other dysphagia (principal)

== ENCOUNTER → 2019-10-15 | Outpatient (RCR) | payer MEDICARE, OTHER ==
--- NOTE | 2019-09-27 10:35 | RADONC ---
RADIATION ONCOLOGY PROGRESS NOTE DATE: 09/23/2019 CHART NUMBER: [id number] PROGRESS NOTE: Mr. Saab is presently at a dose of 750 cGy to his left cheek and 600 cGy to his nose. He is tolerating treatments quite well with no complaints at this time related to his radiation therapy. REVIEW OF SYSTEMS: The patient's review of systems is noncontributory. Denies nausea, vomiting, fevers, chills, night sweats, diplopia, headaches, anxiety or depression, anorexia, weight loss, visual disturbances, chest pain, urinary or bowel difficulties, bone pain, or neurological problems. PHYSICAL EXAMINATION: The patient's skin is in excellent condition with no evidence of radiation change present. There is no moist or dry desquamation. The remainder of his physical exam remains unchanged. Mr. Saab is tolerating treatments quite well and radiation will continue as scheduled.
--- NOTE | 2019-10-02 10:18 | RADONC ---
RADIATION ONCOLOGY PROGRESS NOTE: DATE: 09/30/2019 CHART NUMBER: [id number] Mr. Saab is presently at a dose of 2000 cGy to his left cheek and 1600 cGy to his nose and overall is tolerating treatments quite well with no significant difficulties related to his radiation therapy. The patient's review of systems is noncontributory. He is having no pain or discomfort. PHYSICAL EXAMINATION: The patient's skin shows multiple scabs and lesions still present. There is no evidence of significant radiation change, however. Mr. Saab is tolerating his treatments quite well and radiation will continue as scheduled.
--- NOTE | 2019-10-09 14:19 | RADONC ---
RADIATION ONCOLOGY PROGRESS NOTE DATE OF SERVICE: 10/07/2019 CHART NUMBER: [id number]. PROGRESS NOTE: Mr. Saab is a 79-year-old gentleman who carries the diagnosis of basal cell CA of his left cheek and nose. So far, he has received a dose of 3250 cGy to the left cheek and 2400 cGy to the nose. SYSTEMIC REVIEW He has no complaints other than pain and nasal bleeding occasionally. He denies fever chill headache nausea or vomiting. PHYSICAL EXAMINATION There is marked skin erythema and a small area of moist reaction in both left cheek and nose. He also complains of occasional bleeding from the nose. There is no other complaints. I have discussed skin care. I prescribed Silvadene cream. He is allergic to CORTISONE, and treatment will continue as planned. MTDD
[~2019-10-15] MED LIST changes: -E-Z-GAS II EFFERVESCENT PACKET (SODIUM BICARB./CITRIC ACID/SIMETHICONE) As Ordered ONE; -E-Z-HD 98% w/w 340GM SUSP BTL As Ordered ONE; -E-Z-PAQUE 96% w/w SUSP 176GM BTL As Ordered ONE
== END ==
LOC: M ONCR 09-16 08:56
PROVIDERS: ATTEND Radiology Radiation Oncology
DX: C44.301 Unspecified malignant neoplasm of skin of nose (principal)

== ENCOUNTER → 2019-10-24 | Outpatient (CLI) | payer MEDICARE, OTHER ==
[~2019-10-24] MED LIST changes: +D3 +TAB PO
[2019-10-24 11:30] LABS: BASO % 0.3 % (0.0-1.0); EOS % 0.5 % (0.0-3.0); HEMATOCRIT 36.4 % (42.0-52.0); HEMOGLOBIN 12.4 g/dl (13.5-17.5); LYMPH # 2.1 10^3/uL (1.5-5.0); LYMPH % 31.6 % (24.0-44.0); MEAN CORPUSCULAR HEMOGLOBIN 32.1 pg (27.0-33.0); MEAN CORPUSCULAR HGB CONC 34.1 g/dl (32.0-36.5); MEAN CORPUSCULAR VOLUME 94.3 fl (80.0-96.0); MONO # 1.7 10^3/uL (0.0-0.8); MONO % 25.5 % (0.0-5.0); NEUTROPHILS # 2.7 10^3/uL (1.5-8.5); NEUTROPHILS % 41.6 % (36.0-66.0); PLATELET COUNT, AUTOMATED 336 10^3/uL (150-450); RED BLOOD COUNT 3.86 10^6/uL (4.30-6.10); WHITE BLOOD COUNT 6.5 10^3/uL (4.0-10.0)
[2019-10-24 12:01] LABS: ALBUMIN 3.3 GM/DL (3.2-5.2); ALT/SGPT 24 U/L (12-78); BILIRUBIN,TOTAL 0.4 MG/DL (0.2-1.0); BLOOD UREA NITROGEN 11 MG/DL (7-18); CALCIUM LEVEL 8.9 MG/DL (8.8-10.2); CARBON DIOXIDE LEVEL 25 MEQ/L (21-32); CHLORIDE LEVEL 102 MEQ/L (98-107); CREATININE FOR GFR 0.52 MG/DL (0.70-1.30); GLOMERULAR FILTRATION RATE > 60.0 (>35); GLUCOSE, FASTING 88 MG/DL (70-100); POTASSIUM SERUM 4.3 MEQ/L (3.5-5.1); SODIUM LEVEL 133 MEQ/L (136-145); TOTAL PROTEIN 5.7 GM/DL (6.4-8.2)
[2019-10-25 20:14] LABS: FREE KAPPA LIGHT CHAINS SERUM 73.2 mg/L (3.3-19.4); KAPPA/LAMBDA RATIO SERUM 24.4 (0.26-1.65)
[2019-10-29 16:23] LABS: ALBUMIN 3.55 GM/DL (3.29-5.55); ALBUMIN % 62.3 % (55.8-66.1); ALPHA-1-GLOBULIN % 7.2 % (2.9-4.9); ALPHA-1-GLOBULINS 0.41 GM/DL (0.17-0.41); ALPHA-2-GLOBULINS 0.88 GM/DL (0.42-0.99); ALPHA-2-GLOBULINS % 15.4 % (7.1-11.8); BETA-1-GLOBULINS 0.36 GM/DL (0.28-0.60); BETA-1-GLOBULINS % 6.3 % (4.7-7.2); BETA-2-GLOBULINS 0.23 GM/DL (0.19-0.55); BETA-2-GLOBULINS % 4.1 % (3.2-6.5); GAMMA GLOBULIN % 4.7 % (11.1-18.8); GAMMA GLOBULINS 0.27 GM/DL (0.65-1.58)
== END ==
LOC: M WUC 08:03
PROVIDERS: ATTEND Internal Medicine Hematology & Oncology
DX: C90.00 Multiple myeloma not having achieved remission (principal)

== ENCOUNTER → 2019-11-20 | Outpatient (REF) | payer MEDICARE, OTHER ==
[2019-12-20 15:52] LABS: BASO # 0.1 10^3/uL (0.0-0.2); BASO % 1.5 % (0.0-1.0); EOS # 0.2 10^3/uL (0.0-0.5); EOS % 2.9 % (0.0-3.0); HEMATOCRIT 34.5 % (42.0-52.0); HEMOGLOBIN 11.5 g/dl (13.5-17.5); LYMPH # 1.4 10^3/uL (1.5-5.0); LYMPH % 25.1 % (24.0-44.0); MEAN CORPUSCULAR HEMOGLOBIN 31.3 pg (27.0-33.0); MEAN CORPUSCULAR HGB CONC 33.3 g/dl (32.0-36.5); MEAN CORPUSCULAR VOLUME 93.8 fl (80.0-96.0); MONO # 0.9 10^3/uL (0.0-0.8); MONO % 16.3 % (0.0-5.0); NEUTROPHILS # 2.9 10^3/uL (1.5-8.5); NEUTROPHILS % 53.8 % (36.0-66.0); PLATELET COUNT, AUTOMATED 428 10^3/uL (150-450); RED BLOOD COUNT 3.68 10^6/uL (4.30-6.10); WHITE BLOOD COUNT 5.5 10^3/uL (4.0-10.0)
[2020-01-04 17:38] LABS: ALBUMIN 2.9 GM/DL (3.2-5.2); ALT/SGPT 18 U/L (12-78); BILIRUBIN,TOTAL 0.4 MG/DL (0.2-1.0); BLOOD UREA NITROGEN 11 MG/DL (7-18); CALCIUM LEVEL 8.8 MG/DL (8.8-10.2); CARBON DIOXIDE LEVEL 27 MEQ/L (21-32); CHLORIDE LEVEL 101 MEQ/L (98-107); CREATININE FOR GFR 0.68 MG/DL (0.70-1.30); GLOMERULAR FILTRATION RATE > 60.0 (>35); GLUCOSE, FASTING 97 MG/DL (70-100); IMMUNOGLOBULIN A 33.7 MG/DL (70-400); IMMUNOGLOBULIN G 259 MG/DL (681-1648); POTASSIUM SERUM 4.6 MEQ/L (3.5-5.1); SODIUM LEVEL 134 MEQ/L (136-145); TOTAL PROTEIN 5.4 GM/DL (6.4-8.2)
[2020-01-07 07:25] LABS: ALBUMIN % 59.3 % (55.8-66.1); ALPHA-1-GLOBULIN % 8.7 % (2.9-4.9)
[2020-01-07 07:26] LABS: ALBUMIN 4.33 GM/DL (3.29-5.55); ALPHA-1-GLOBULINS 0.64 GM/DL (0.17-0.41); ALPHA-2-GLOBULINS 1.26 GM/DL (0.42-0.99); ALPHA-2-GLOBULINS % 17.2 % (7.1-11.8); BETA-1-GLOBULINS 0.47 GM/DL (0.28-0.60); BETA-1-GLOBULINS % 6.4 % (4.7-7.2); BETA-2-GLOBULINS 0.26 GM/DL (0.19-0.55); BETA-2-GLOBULINS % 3.6 % (3.2-6.5); GAMMA GLOBULIN % 4.8 % (11.1-18.8); GAMMA GLOBULINS 0.35 GM/DL (0.65-1.58)
[2020-01-07 07:29] LABS: IMMUNOTYPING SERUM IGG ABNORMAL (NORMAL); IMMUNOTYPING SERUM KAPPA ABNORMAL (NORMAL)
== END ==
LOC: M WUC 10:51
PROVIDERS: ATTEND Internal Medicine Hematology & Oncology
DX: C90.00 Multiple myeloma not having achieved remission (principal)

== ENCOUNTER → 2019-12-26 | Outpatient (CLI) | payer MEDICARE, OTHER ==
[2019-12-26 12:30] LABS: BASO % 0.4 % (0.0-1.0); EOS # 0.2 10^3/uL (0.0-0.5); EOS % 2.2 % (0.0-3.0); HEMATOCRIT 38.8 % (42.0-52.0); HEMOGLOBIN 12.6 g/dl (13.5-17.5); LYMPH # 1.3 10^3/uL (1.5-5.0); MEAN CORPUSCULAR HEMOGLOBIN 30.1 pg (27.0-33.0); MEAN CORPUSCULAR HGB CONC 32.5 g/dl (32.0-36.5); MEAN CORPUSCULAR VOLUME 92.6 fl (80.0-96.0); MONO # 0.9 10^3/uL (0.0-0.8); MONO % 13.1 % (0.0-5.0); NEUTROPHILS # 4.5 10^3/uL (1.5-8.5); NEUTROPHILS % 65.2 % (36.0-66.0); PLATELET COUNT, AUTOMATED 228 10^3/uL (150-450); RED BLOOD COUNT 4.19 10^6/uL (4.30-6.10); WHITE BLOOD COUNT 6.9 10^3/uL (4.0-10.0)
[2019-12-26 13:28] LABS: ALBUMIN 3.5 GM/DL (3.2-5.2); ALT/SGPT 19 U/L (12-78); BILIRUBIN,TOTAL 0.5 MG/DL (0.2-1.0); BLOOD UREA NITROGEN 11 MG/DL (7-18); CALCIUM LEVEL 9.1 MG/DL (8.8-10.2); CARBON DIOXIDE LEVEL 25 MEQ/L (21-32); CHLORIDE LEVEL 102 MEQ/L (98-107); CREATININE FOR GFR 0.53 MG/DL (0.70-1.30); GLOMERULAR FILTRATION RATE > 60.0 (>35); GLUCOSE, FASTING 89 MG/DL (70-100); IMMUNOGLOBULIN A 29.8 MG/DL (70-400); IMMUNOGLOBULIN G 337 MG/DL (681-1648); IMMUNOGLOBULIN M 6.2 MG/DL (40-230); SODIUM LEVEL 135 MEQ/L (136-145)
[2019-12-27 18:09] LABS: FREE KAPPA LIGHT CHAINS SERUM 64.3 mg/L (3.3-19.4); FREE LAMBDA LIGHT CHAINS SERUM 2.8 mg/L (5.7-26.3); KAPPA/LAMBDA RATIO SERUM 22.96 (0.26-1.65)
[2019-12-31 13:06] LABS: ALBUMIN 3.95 GM/DL (3.29-5.55); ALBUMIN % 65.9 % (55.8-66.1); ALPHA-1-GLOBULIN % 5.6 % (2.9-4.9); ALPHA-1-GLOBULINS 0.34 GM/DL (0.17-0.41); ALPHA-2-GLOBULINS 0.77 GM/DL (0.42-0.99); ALPHA-2-GLOBULINS % 12.8 % (7.1-11.8); BETA-1-GLOBULINS 0.41 GM/DL (0.28-0.60); BETA-1-GLOBULINS % 6.8 % (4.7-7.2); BETA-2-GLOBULINS 0.22 GM/DL (0.19-0.55); BETA-2-GLOBULINS % 3.7 % (3.2-6.5); GAMMA GLOBULIN % 5.2 % (11.1-18.8); GAMMA GLOBULINS 0.31 GM/DL (0.65-1.58)
== END ==
LOC: M WUC 08:03
PROVIDERS: ATTEND Internal Medicine Hematology & Oncology
DX: C90.00 Multiple myeloma not having achieved remission (principal)

== ENCOUNTER → 2019-12-28 | Outpatient (REF) | payer MEDICARE, OTHER ==
[2019-12-28 13:40] LABS: TOTAL VOLUME, URINE 3000 ML
[2019-12-28 14:05] LABS: URINE TOTAL PROTEIN 10.1 MG/DL (0-12)
== END ==
LOC: M LAB 10:00
PROVIDERS: ATTEND Internal Medicine Hematology & Oncology
DX: C90.00 Multiple myeloma not having achieved remission (principal)

== ENCOUNTER → 2020-01-08 | Outpatient (CLI) | payer MEDICARE, OTHER ==
--- NOTE | 2020-02-13 12:55 | RADONC ---
MEDICAL ONCOLOGY NOTE DATE: 01/08/2020 DIAGNOSIS: Basal cell carcinoma of the nose and left cheek. ECOG performance status 0. CONSULTATION NOTE: Mr. Saab is a very pleasant 79-year-old white male with a diagnosis of multiple basal cell carcinomas involving his nose and cheek, who is presenting to us today for routine followup visit 1 month post completion of external beam radiation therapy. The patient presents today reporting that he is doing quite well with no complaints at this time related to his radiation therapy or disease. He is having no nose or cheek pain. The patient's review of systems is noncontributory. He denies any standard review of systems. The patient's skin over the treated abbasi is in excellent condition with no evidence of nodular, ulceration, or residual disease. There are no other suspicious lesions present over the patient's face or neck. There is no palpable preauricular, cervical, supraclavicular, or infraclavicular lymphadenopathy present. ASSESSMENT: The patient is clinically no evidence of disease (LUCY) at this time. He is being followed closely by his other physicians and is therefore being discharged from our followup at this time except on an as-needed basis. I have asked him to continue followup, of course, with dermatology. ERICD
== END ==
LOC: M ONCR 13:10
PROVIDERS: ATTEND Radiology Radiation Oncology
DX: C44.301 Unspecified malignant neoplasm of skin of nose (principal)

== ENCOUNTER → 2020-02-12 | Outpatient (REF) | payer MEDICARE, OTHER ==
[2020-02-12 12:45] LABS: BASO # 0.1 10^3/uL (0.0-0.2); BASO % 1.4 % (0.0-1.0); EOS # 0.5 10^3/uL (0.0-0.5); EOS % 6.2 % (0.0-3.0); HEMATOCRIT 39.2 % (42.0-52.0); HEMOGLOBIN 12.9 g/dl (13.5-17.5); LYMPH # 1.3 10^3/uL (1.5-5.0); LYMPH % 15.4 % (24.0-44.0); MEAN CORPUSCULAR HEMOGLOBIN 29.1 pg (27.0-33.0); MEAN CORPUSCULAR HGB CONC 32.9 g/dl (32.0-36.5); MEAN CORPUSCULAR VOLUME 88.5 fl (80.0-96.0); MONO # 1.6 10^3/uL (0.0-0.8); MONO % 18.4 % (0.0-5.0); NEUTROPHILS % 58.3 % (36.0-66.0); PLATELET COUNT, AUTOMATED 293 10^3/uL (150-450); RED BLOOD COUNT 4.43 10^6/uL (4.30-6.10); WHITE BLOOD COUNT 8.6 10^3/uL (4.0-10.0)
[2020-02-12 12:56] LABS: INR 0.92; PROTHROMBIN TIME 12.6 SECONDS (12.5-14.3)
== END ==
LOC: M LAB REF 12:22
PROVIDERS: ATTEND Dentist
DX: C90.00 Multiple myeloma not having achieved remission (principal)

== ENCOUNTER → 2020-02-24 | Outpatient (CLI) | payer MEDICARE, OTHER ==
[2020-02-24 16:07] LABS: ALBUMIN 3.4 GM/DL (3.2-5.2); ALT/SGPT 20 U/L (12-78); BILIRUBIN,TOTAL 0.3 MG/DL (0.2-1.0); BLOOD UREA NITROGEN 12 MG/DL (7-18); CALCIUM LEVEL 9.1 MG/DL (8.8-10.2); CARBON DIOXIDE LEVEL 26 MEQ/L (21-32); CHLORIDE LEVEL 101 MEQ/L (98-107); CREATININE FOR GFR 0.47 MG/DL (0.70-1.30); GLOMERULAR FILTRATION RATE > 60.0 (>35); GLUCOSE, FASTING 105 MG/DL (70-100); POTASSIUM SERUM 4.3 MEQ/L (3.5-5.1); SODIUM LEVEL 132 MEQ/L (136-145); TOTAL PROTEIN 5.8 GM/DL (6.4-8.2)
== END ==
LOC: M WUC 13:56
PROVIDERS: ATTEND Internal Medicine Hematology & Oncology
DX: C90.00 Multiple myeloma not having achieved remission (principal)

== ENCOUNTER → 2020-03-20 | Outpatient (CLI) | payer MEDICARE, OTHER ==
[2020-03-20 10:16] LABS: BASO # 0.1 10^3/uL (0.0-0.2); BASO % 1.3 % (0.0-1.0); EOS # 0.6 10^3/uL (0.0-0.5); EOS % 11.6 % (0.0-3.0); HEMOGLOBIN 12.4 g/dl (13.5-17.5); LYMPH # 1.3 10^3/uL (1.5-5.0); LYMPH % 23.9 % (24.0-44.0); MEAN CORPUSCULAR HEMOGLOBIN 27.5 pg (27.0-33.0); MEAN CORPUSCULAR HGB CONC 31.8 g/dl (32.0-36.5); MEAN CORPUSCULAR VOLUME 86.5 fl (80.0-96.0); MONO # 1.2 10^3/uL (0.0-0.8); MONO % 22.9 % (0.0-5.0); NEUTROPHILS # 2.1 10^3/uL (1.5-8.5); NEUTROPHILS % 40.1 % (36.0-66.0); PLATELET COUNT, AUTOMATED 194 10^3/uL (150-450); RED BLOOD COUNT 4.51 10^6/uL (4.30-6.10); WHITE BLOOD COUNT 5.2 10^3/uL (4.0-10.0)
[2020-03-20 11:16] LABS: ALBUMIN 3.5 GM/DL (3.2-5.2); ALT/SGPT 23 U/L (12-78); BILIRUBIN,TOTAL 0.4 MG/DL (0.2-1.0); BLOOD UREA NITROGEN 15 MG/DL (7-18); CARBON DIOXIDE LEVEL 27 MEQ/L (21-32); CHLORIDE LEVEL 102 MEQ/L (98-107); CREATININE FOR GFR 0.57 MG/DL (0.70-1.30); GLOMERULAR FILTRATION RATE > 60.0 (>35); GLUCOSE, FASTING 92 MG/DL (70-100); IMMUNOGLOBULIN A 38.2 MG/DL (70-400); IMMUNOGLOBULIN G 464 MG/DL (681-1648); IMMUNOGLOBULIN M 11.3 MG/DL (40-230); SODIUM LEVEL 134 MEQ/L (136-145)
[2020-03-22 23:06] LABS: BETA 2 MICROGLOBULIN 1.2 mg/L (0.6-2.4); FREE KAPPA LIGHT CHAINS SERUM 81.6 mg/L (3.3-19.4); FREE LAMBDA LIGHT CHAINS SERUM 7.4 mg/L (5.7-26.3); KAPPA/LAMBDA RATIO SERUM 11.03 (0.26-1.65)
[2020-03-23 14:35] LABS: ALBUMIN 3.77 GM/DL (3.29-5.55); ALBUMIN % 62.9 % (55.8-66.1); ALPHA-1-GLOBULIN % 5.7 % (2.9-4.9); ALPHA-1-GLOBULINS 0.34 GM/DL (0.17-0.41); ALPHA-2-GLOBULINS 0.75 GM/DL (0.42-0.99); ALPHA-2-GLOBULINS % 12.5 % (7.1-11.8); BETA-1-GLOBULINS 0.43 GM/DL (0.28-0.60); BETA-1-GLOBULINS % 7.2 % (4.7-7.2); BETA-2-GLOBULINS 0.24 GM/DL (0.19-0.55); GAMMA GLOBULIN % 7.7 % (11.1-18.8); GAMMA GLOBULINS 0.46 GM/DL (0.65-1.58)
== END ==
LOC: M WUC 08:04
PROVIDERS: ATTEND Internal Medicine Hematology & Oncology
DX: C90.00 Multiple myeloma not having achieved remission (principal)

== ENCOUNTER → 2020-04-20 | Outpatient (CLI) | payer MEDICARE, OTHER ==
[2020-04-20 10:21] LABS: ALBUMIN 3.8 GM/DL (3.2-5.2); ALT/SGPT 19 U/L (12-78); BILIRUBIN,TOTAL 0.6 MG/DL (0.2-1.0); BLOOD UREA NITROGEN 12 MG/DL (7-18); CALCIUM LEVEL 9.5 MG/DL (8.8-10.2); CARBON DIOXIDE LEVEL 27 MEQ/L (21-32); CHLORIDE LEVEL 103 MEQ/L (98-107); GLOMERULAR FILTRATION RATE > 60.0 (>35); GLUCOSE, FASTING 88 MG/DL (70-100); POTASSIUM SERUM 4.3 MEQ/L (3.5-5.1); SODIUM LEVEL 136 MEQ/L (136-145); TOTAL PROTEIN 6.3 GM/DL (6.4-8.2)
== END ==
LOC: M WUC 08:05
PROVIDERS: ATTEND Internal Medicine Hematology & Oncology
DX: C90.00 Multiple myeloma not having achieved remission (principal); Z88.8 Allergy status to other drugs, medicaments and biological substances

== ENCOUNTER → 2020-05-07 | Outpatient (CLI) | payer MEDICARE, OTHER ==
[2020-05-07 10:30] LABS: THYROID STIMULATING HORMONE 5.16 uIU/ML (0.358-3.740)
== END ==
LOC: M WUC 08:05
PROVIDERS: ATTEND Internal Medicine
DX: I10 Essential (primary) hypertension (principal)

== ENCOUNTER → 2020-05-15 | Outpatient (CLI) | payer MEDICARE, OTHER ==
[2020-05-15 12:54] LABS: ALBUMIN 3.5 GM/DL (3.2-5.2); ALT/SGPT 22 U/L (12-78); BILIRUBIN,TOTAL 0.5 MG/DL (0.2-1.0); BLOOD UREA NITROGEN 10 MG/DL (7-18); CALCIUM LEVEL 9.1 MG/DL (8.8-10.2); CARBON DIOXIDE LEVEL 27 MEQ/L (21-32); CHLORIDE LEVEL 102 MEQ/L (98-107); CREATININE FOR GFR 0.58 MG/DL (0.70-1.30); GLOMERULAR FILTRATION RATE > 60.0 (>35); GLUCOSE, FASTING 92 MG/DL (70-100); SODIUM LEVEL 136 MEQ/L (136-145); TOTAL PROTEIN 5.9 GM/DL (6.4-8.2)
== END ==
LOC: M WUC 09:08
PROVIDERS: ATTEND Internal Medicine Hematology & Oncology
DX: C90.00 Multiple myeloma not having achieved remission (principal)

== ENCOUNTER → 2020-06-15 | Outpatient (CLI) | payer MEDICARE, OTHER ==
[2020-06-15 10:54] LABS: BASO # 0.1 10^3/uL (0.0-0.2); BASO % 0.8 % (0.0-1.0); EOS # 0.7 10^3/uL (0.0-0.5); EOS % 11.5 % (0.0-3.0); HEMATOCRIT 42.2 % (42.0-52.0); HEMOGLOBIN 13.5 g/dl (13.5-17.5); LYMPH # 1.3 10^3/uL (1.5-5.0); LYMPH % 21.6 % (24.0-44.0); MEAN CORPUSCULAR HEMOGLOBIN 28.2 pg (27.0-33.0); MEAN CORPUSCULAR VOLUME 88.3 fl (80.0-96.0); MONO # 1.2 10^3/uL (0.0-0.8); NEUTROPHILS # 2.8 10^3/uL (1.5-8.5); NEUTROPHILS % 45.8 % (36.0-66.0); PLATELET COUNT, AUTOMATED 225 10^3/uL (150-450); RED BLOOD COUNT 4.78 10^6/uL (4.30-6.10); WHITE BLOOD COUNT 6.1 10^3/uL (4.0-10.0)
[2020-06-15 12:06] LABS: ALBUMIN 3.9 GM/DL (3.2-5.2); ALT/SGPT 24 U/L (12-78); BILIRUBIN,TOTAL 0.5 MG/DL (0.2-1.0); BLOOD UREA NITROGEN 13 MG/DL (7-18); CARBON DIOXIDE LEVEL 26 MEQ/L (21-32); CHLORIDE LEVEL 103 MEQ/L (98-107); CREATININE FOR GFR 0.62 MG/DL (0.70-1.30); GLOMERULAR FILTRATION RATE > 60.0 (>35); GLUCOSE, FASTING 89 MG/DL (70-100); IMMUNOGLOBULIN A 52.8 MG/DL (70-400); IMMUNOGLOBULIN G 489 MG/DL (681-1648); IMMUNOGLOBULIN M 14.1 MG/DL (40-230); POTASSIUM SERUM 3.9 MEQ/L (3.5-5.1); SODIUM LEVEL 135 MEQ/L (136-145); TOTAL PROTEIN 6.3 GM/DL (6.4-8.2)
[2020-06-17 08:09] LABS: BETA 2 MICROGLOBULIN 1.5 mg/L (0.6-2.4); FREE KAPPA LIGHT CHAINS SERUM 81.8 mg/L (3.3-19.4); KAPPA/LAMBDA RATIO SERUM 10.23 (0.26-1.65)
[2020-06-17 12:54] LABS: ALBUMIN 3.99 GM/DL (3.29-5.55); ALBUMIN % 63.4 % (55.8-66.1); ALPHA-1-GLOBULIN % 5.8 % (2.9-4.9); ALPHA-1-GLOBULINS 0.37 GM/DL (0.17-0.41); ALPHA-2-GLOBULINS % 12.7 % (7.1-11.8); BETA-1-GLOBULINS 0.41 GM/DL (0.28-0.60); BETA-1-GLOBULINS % 6.5 % (4.7-7.2); BETA-2-GLOBULINS 0.25 GM/DL (0.19-0.55); BETA-2-GLOBULINS % 3.9 % (3.2-6.5); GAMMA GLOBULIN % 7.7 % (11.1-18.8); GAMMA GLOBULINS 0.49 GM/DL (0.65-1.58)
== END ==
LOC: M WUC 08:07
PROVIDERS: ATTEND Internal Medicine Hematology & Oncology
DX: C90.00 Multiple myeloma not having achieved remission (principal)

== ENCOUNTER → 2020-07-14 | Outpatient (CLI) | payer MEDICARE, OTHER ==
[2020-07-14 11:21] LABS: BASO % 1.3 % (0.0-1.0); EOS % 12.9 % (0.0-3.0); HEMATOCRIT 41.2 % (42.0-52.0); HEMOGLOBIN 13.2 g/dl (13.5-17.5); MEAN CORPUSCULAR HEMOGLOBIN 27.6 pg (27.0-33.0); MEAN CORPUSCULAR VOLUME 86.2 fl (80.0-96.0); NEUTROPHILS % 45.4 % (36.0-66.0); PLATELET COUNT, AUTOMATED 247 10^3/uL (150-450); RED BLOOD COUNT 4.78 10^6/uL (4.30-6.10)
[2020-07-14 11:22] LABS: BASO # 0.1 10^3/uL (0.0-0.2); EOS # 0.9 10^3/uL (0.0-0.5); LYMPH # 1.4 10^3/uL (1.5-5.0); MONO # 1.5 10^3/uL (0.0-0.8); NEUTROPHILS # 3.3 10^3/uL (1.5-8.5)
[2020-07-14 11:23] LABS: WHITE BLOOD COUNT 7.2 10^3/uL (4.0-10.0)
[2020-07-14 12:38] LABS: ALBUMIN 3.6 GM/DL (3.2-5.2); ALT/SGPT 19 U/L (12-78); BILIRUBIN,TOTAL 0.5 MG/DL (0.2-1.0); BLOOD UREA NITROGEN 11 MG/DL (7-18); CALCIUM LEVEL 9.5 MG/DL (8.8-10.2); CARBON DIOXIDE LEVEL 29 MEQ/L (21-32); CHLORIDE LEVEL 102 MEQ/L (98-107); CREATININE FOR GFR 0.52 MG/DL (0.70-1.30); GLOMERULAR FILTRATION RATE > 60.0 (>35); GLUCOSE, FASTING 92 MG/DL (70-100); POTASSIUM SERUM 4.3 MEQ/L (3.5-5.1); SODIUM LEVEL 135 MEQ/L (136-145); TOTAL PROTEIN 6.3 GM/DL (6.4-8.2)
== END ==
LOC: M WUC 08:02
PROVIDERS: ATTEND Internal Medicine Hematology & Oncology
DX: C90.00 Multiple myeloma not having achieved remission (principal)

== ENCOUNTER → 2020-08-26 | Outpatient (REF) | payer MEDICARE, OTHER ==
[~2020-08-26] MED LIST changes: +COVI100V IM; +VALA500T5 PO
== END ==
LOC: M LAB REF 16:35
PROVIDERS: ATTEND Dermatology
DX: C44.319 Basal cell carcinoma of skin of other parts of face (principal); C44.329 Squamous cell carcinoma of skin of other parts of face; D23.62 Other benign neoplasm of skin of left upper limb, including shoulder
CPT/HCPCS: 11102; 11103; 88305; G0463

== ENCOUNTER → 2020-09-09 | Outpatient (CLI) | payer MEDICARE, OTHER ==
[2020-09-09 09:49] LABS: BASO # 0.1 10^3/uL (0.0-0.2); BASO % 1.5 % (0.0-1.0); EOS # 0.5 10^3/uL (0.0-0.5); EOS % 6.2 % (0.0-3.0); HEMATOCRIT 40.2 % (42.0-52.0); HEMOGLOBIN 12.8 g/dl (13.5-17.5); LYMPH # 1.5 10^3/uL (1.5-5.0); LYMPH % 18.8 % (24.0-44.0); MEAN CORPUSCULAR HEMOGLOBIN 27.5 pg (27.0-33.0); MEAN CORPUSCULAR HGB CONC 31.8 g/dl (32.0-36.5); MEAN CORPUSCULAR VOLUME 86.3 fl (80.0-96.0); MONO # 1.5 10^3/uL (0.0-0.8); MONO % 18.3 % (2.0-8.0); NEUTROPHILS # 4.5 10^3/uL (1.5-8.5); NEUTROPHILS % 54.8 % (36.0-66.0); PLATELET COUNT, AUTOMATED 259 10^3/uL (150-450); RED BLOOD COUNT 4.66 10^6/uL (4.30-6.10)
[2020-09-09 09:51] LABS: WHITE BLOOD COUNT 8.2 10^3/uL (4.0-10.0)
[2020-09-09 11:40] LABS: ALBUMIN 3.7 GM/DL (3.2-5.2); ALT/SGPT 24 U/L (12-78); BILIRUBIN,TOTAL 0.5 MG/DL (0.2-1.0); BLOOD UREA NITROGEN 10 MG/DL (7-18); CALCIUM LEVEL 9.4 MG/DL (8.8-10.2); CARBON DIOXIDE LEVEL 27 MEQ/L (21-32); CHLORIDE LEVEL 103 MEQ/L (98-107); CREATININE FOR GFR 0.54 MG/DL (0.70-1.30); GLOMERULAR FILTRATION RATE > 60.0 (>35); GLUCOSE, FASTING 97 MG/DL (70-100); POTASSIUM SERUM 4.1 MEQ/L (3.5-5.1); SODIUM LEVEL 136 MEQ/L (136-145); TOTAL PROTEIN 6.2 GM/DL (6.4-8.2)
== END ==
LOC: M WUC 08:02
PROVIDERS: ATTEND Internal Medicine Hematology & Oncology
DX: C90.00 Multiple myeloma not having achieved remission (principal)

== ENCOUNTER → 2020-10-07 | Outpatient (CLI) | payer MEDICARE, OTHER ==
[2020-10-07 10:58] LABS: BASO # 0.1 10^3/uL (0.0-0.2); BASO % 1.3 % (0.0-1.0); EOS # 0.4 10^3/uL (0.0-0.5); EOS % 4.6 % (0.0-3.0); HEMATOCRIT 42.2 % (42.0-52.0); HEMOGLOBIN 13.4 g/dl (13.5-17.5); LYMPH # 1.6 10^3/uL (1.5-5.0); LYMPH % 17.4 % (24.0-44.0); MEAN CORPUSCULAR HEMOGLOBIN 27.6 pg (27.0-33.0); MEAN CORPUSCULAR HGB CONC 31.8 g/dl (32.0-36.5); MONO # 1.7 10^3/uL (0.0-0.8); MONO % 18.8 % (2.0-8.0); NEUTROPHILS # 5.2 10^3/uL (1.5-8.5); NEUTROPHILS % 57.5 % (36.0-66.0); PLATELET COUNT, AUTOMATED 292 10^3/uL (150-450); RED BLOOD COUNT 4.85 10^6/uL (4.30-6.10)
[2020-10-07 10:59] LABS: WHITE BLOOD COUNT 9.1 10^3/uL (4.0-10.0)
[2020-10-07 11:21] LABS: ALBUMIN 3.9 GM/DL (3.2-5.2); ALT/SGPT 28 U/L (12-78); BILIRUBIN,TOTAL 0.5 MG/DL (0.2-1.0); BLOOD UREA NITROGEN 15 MG/DL (7-18); CALCIUM LEVEL 9.9 MG/DL (8.8-10.2); CARBON DIOXIDE LEVEL 26 MEQ/L (21-32); CHLORIDE LEVEL 104 MEQ/L (98-107); CREATININE FOR GFR 0.62 MG/DL (0.70-1.30); GLOMERULAR FILTRATION RATE > 60.0 (>35); GLUCOSE, FASTING 96 MG/DL (70-100); POTASSIUM SERUM 4.3 MEQ/L (3.5-5.1); SODIUM LEVEL 137 MEQ/L (136-145); TOTAL PROTEIN 6.6 GM/DL (6.4-8.2)
== END ==
LOC: M WUC 08:03
PROVIDERS: ATTEND Internal Medicine Hematology & Oncology
DX: C90.00 Multiple myeloma not having achieved remission (principal)

== ENCOUNTER → 2020-11-03 | Outpatient (CLI) | payer MEDICARE, OTHER ==
[2020-11-03 12:07] LABS: BASO # 0.1 10^3/uL (0.0-0.2); BASO % 1.7 % (0.0-1.0); EOS # 0.3 10^3/uL (0.0-0.5); EOS % 4.1 % (0.0-3.0); HEMATOCRIT 41.3 % (42.0-52.0); HEMOGLOBIN 13.4 g/dl (13.5-17.5); LYMPH # 1.5 10^3/uL (1.5-5.0); LYMPH % 23.1 % (24.0-44.0); MEAN CORPUSCULAR HEMOGLOBIN 28.1 pg (27.0-33.0); MEAN CORPUSCULAR HGB CONC 32.4 g/dl (32.0-36.5); MEAN CORPUSCULAR VOLUME 86.6 fl (80.0-96.0); MONO # 0.7 10^3/uL (0.0-0.8); MONO % 10.6 % (2.0-8.0); NEUTROPHILS # 3.8 10^3/uL (1.5-8.5); PLATELET COUNT, AUTOMATED 265 10^3/uL (150-450); RED BLOOD COUNT 4.77 10^6/uL (4.30-6.10); WHITE BLOOD COUNT 6.3 10^3/uL (4.0-10.0)
[2020-11-03 12:48] LABS: ALT/SGPT 29 U/L (12-78); BILIRUBIN,TOTAL 0.5 MG/DL (0.2-1.0); BLOOD UREA NITROGEN 16 MG/DL (7-18); CALCIUM LEVEL 9.6 MG/DL (8.8-10.2); CARBON DIOXIDE LEVEL 24 MEQ/L (21-32); CHLORIDE LEVEL 102 MEQ/L (98-107); CREATININE FOR GFR 0.68 MG/DL (0.70-1.30); GLOMERULAR FILTRATION RATE > 60.0 (>35); GLUCOSE, FASTING 98 MG/DL (70-100); POTASSIUM SERUM 3.9 MEQ/L (3.5-5.1); SODIUM LEVEL 133 MEQ/L (136-145); TOTAL PROTEIN 6.6 GM/DL (6.4-8.2)
== END ==
LOC: M WUC 08:06
PROVIDERS: ATTEND Internal Medicine Hematology & Oncology
DX: C90.00 Multiple myeloma not having achieved remission (principal)

== ENCOUNTER → 2020-11-03 | Outpatient (CLI) | payer MEDICARE, OTHER ==
[2020-11-03 12:58] LABS: ALT/SGPT 26 U/L (12-78); BLOOD UREA NITROGEN 16 MG/DL (7-18); CALCIUM LEVEL 9.3 MG/DL (8.8-10.2); CARBON DIOXIDE LEVEL 24 MEQ/L (21-32); CHLORIDE LEVEL 102 MEQ/L (98-107); CREATININE FOR GFR 0.67 MG/DL (0.70-1.30); GLOMERULAR FILTRATION RATE > 60.0 (>35); GLUCOSE, FASTING 96 MG/DL (70-100); POTASSIUM SERUM 3.9 MEQ/L (3.5-5.1); SODIUM LEVEL 134 MEQ/L (136-145)
[2020-11-03 12:59] LABS: ALBUMIN 3.9 GM/DL (3.2-5.2); BILIRUBIN,TOTAL 0.5 MG/DL (0.2-1.0); MAGNESIUM LEVEL 2.1 MG/DL (1.8-2.4); TOTAL PROTEIN 6.6 GM/DL (6.4-8.2)
== END ==
LOC: M WUC 08:04
PROVIDERS: ATTEND Internal Medicine
DX: R79.89 Other specified abnormal findings of blood chemistry (principal); I10 Essential (primary) hypertension; C90.00 Multiple myeloma not having achieved remission

== ENCOUNTER → 2020-12-01 | Outpatient (CLI) | payer MEDICARE, OTHER ==
[~2020-12-01] MED LIST changes: +CHOL25TA8 PO; -VITA-112 PO
[2020-12-01 16:30] LABS: BASO # 0.1 10^3/uL (0.0-0.2); BASO % 1.9 % (0.0-1.0); EOS # 0.2 10^3/uL (0.0-0.5); EOS % 3.9 % (0.0-3.0); HEMATOCRIT 38.9 % (42.0-52.0); HEMOGLOBIN 12.5 g/dl (13.5-17.5); LYMPH % 19.8 % (24.0-44.0); MEAN CORPUSCULAR HGB CONC 32.1 g/dl (32.0-36.5); MEAN CORPUSCULAR VOLUME 87.2 fl (80.0-96.0); MONO # 0.5 10^3/uL (0.0-0.8); MONO % 10.1 % (2.0-8.0); NEUTROPHILS # 3.3 10^3/uL (1.5-8.5); NEUTROPHILS % 63.5 % (36.0-66.0); PLATELET COUNT, AUTOMATED 260 10^3/uL (150-450); RED BLOOD COUNT 4.46 10^6/uL (4.30-6.10); WHITE BLOOD COUNT 5.2 10^3/uL (4.0-10.0)
[2020-12-01 16:55] LABS: ALBUMIN 3.5 GM/DL (3.2-5.2); ALT/SGPT 26 U/L (12-78); BILIRUBIN,TOTAL 0.4 MG/DL (0.2-1.0); BLOOD UREA NITROGEN 13 MG/DL (7-18); CALCIUM LEVEL 8.7 MG/DL (8.8-10.2); CARBON DIOXIDE LEVEL 25 MEQ/L (21-32); CHLORIDE LEVEL 103 MEQ/L (98-107); CREATININE FOR GFR 0.56 MG/DL (0.70-1.30); GLOMERULAR FILTRATION RATE > 60.0 (>35); GLUCOSE, FASTING 95 MG/DL (70-100); POTASSIUM SERUM 4.1 MEQ/L (3.5-5.1); SODIUM LEVEL 134 MEQ/L (136-145); TOTAL PROTEIN 5.9 GM/DL (6.4-8.2)
[2020-12-03 13:53] LABS: ALBUMIN 3.71 GM/DL (3.29-5.55); ALBUMIN % 62.9 % (55.8-66.1); ALPHA-1-GLOBULIN % 5.8 % (2.9-4.9); ALPHA-1-GLOBULINS 0.34 GM/DL (0.17-0.41); ALPHA-2-GLOBULINS 0.78 GM/DL (0.42-0.99); ALPHA-2-GLOBULINS % 13.2 % (7.1-11.8); BETA-1-GLOBULINS % 6.7 % (4.7-7.2); BETA-2-GLOBULINS 0.24 GM/DL (0.19-0.55); GAMMA GLOBULIN % 7.4 % (11.1-18.8)
[2020-12-03 13:54] LABS: GAMMA GLOBULINS 0.44 GM/DL (0.65-1.58)
[2020-12-03 17:11] LABS: FREE KAPPA LIGHT CHAINS SERUM 96.5 mg/L (3.3-19.4); FREE LAMBDA LIGHT CHAINS SERUM 6.4 mg/L (5.7-26.3); KAPPA/LAMBDA RATIO SERUM 15.08 (0.26-1.65)
== END ==
LOC: M WUC 10:39
PROVIDERS: ATTEND Internal Medicine Hematology & Oncology
DX: C90.00 Multiple myeloma not having achieved remission (principal); I10 Essential (primary) hypertension; E78.00 Pure hypercholesterolemia, unspecified; K21.9 Gastro-esophageal reflux disease without esophagitis; E87.1 Hypo-osmolality and hyponatremia; Z87.891 Personal history of nicotine dependence

== ENCOUNTER → 2020-12-25 | Outpatient (CLI) | payer MEDICARE, OTHER ==
[2020-12-25 10:07] LABS: BASO # 0.1 10^3/uL (0.0-0.2); BASO % 1.9 % (0.0-1.0); EOS # 0.1 10^3/uL (0.0-0.5); EOS % 1.9 % (0.0-3.0); HEMATOCRIT 39.5 % (42.0-52.0); HEMOGLOBIN 12.9 g/dl (13.5-17.5); LYMPH # 1.5 10^3/uL (1.5-5.0); LYMPH % 35.9 % (24.0-44.0); MEAN CORPUSCULAR HEMOGLOBIN 28.5 pg (27.0-33.0); MEAN CORPUSCULAR HGB CONC 32.7 g/dl (32.0-36.5); MEAN CORPUSCULAR VOLUME 87.4 fl (80.0-96.0); MONO # 1.2 10^3/uL (0.0-0.8); MONO % 29.3 % (2.0-8.0); NEUTROPHILS # 1.3 10^3/uL (1.5-8.5); NEUTROPHILS % 30.8 % (36.0-66.0); PLATELET COUNT, AUTOMATED 336 10^3/uL (150-450); RED BLOOD COUNT 4.52 10^6/uL (4.30-6.10); WHITE BLOOD COUNT 4.2 10^3/uL (4.0-10.0)
[2020-12-25 10:38] LABS: ALBUMIN 3.6 GM/DL (3.2-5.2); ALT/SGPT 23 U/L (12-78); BILIRUBIN,TOTAL 0.5 MG/DL (0.2-1.0); BLOOD UREA NITROGEN 11 MG/DL (7-18); CALCIUM LEVEL 9.1 MG/DL (8.8-10.2); CARBON DIOXIDE LEVEL 25 MEQ/L (21-32); CHLORIDE LEVEL 102 MEQ/L (98-107); GLOMERULAR FILTRATION RATE > 60.0 (>35); GLUCOSE, FASTING 101 MG/DL (70-100); SODIUM LEVEL 134 MEQ/L (136-145); TOTAL PROTEIN 6.2 GM/DL (6.4-8.2)
[2020-12-26 17:10] LABS: FREE KAPPA LIGHT CHAINS SERUM 99.7 mg/L (3.3-19.4); FREE LAMBDA LIGHT CHAINS SERUM 5.9 mg/L (5.7-26.3); KAPPA/LAMBDA RATIO SERUM 16.9 (0.26-1.65)
== END ==
LOC: M WUC 08:00
PROVIDERS: ATTEND Internal Medicine Hematology & Oncology
DX: C90.00 Multiple myeloma not having achieved remission (principal)

== ENCOUNTER → 2020-12-29 | Outpatient (CLI) | payer MEDICARE, OTHER | LOC: M ONCR 10:54 | PROVIDERS: ATTEND Radiology Radiation Oncology | DX: C44.301 Unspecified malignant neoplasm of skin of nose (principal); C44.309 Unspecified malignant neoplasm of skin of other parts of face; E78.00 Pure hypercholesterolemia, unspecified; H40.9 Unspecified glaucoma; I10 Essential (primary) hypertension; I35.9 Nonrheumatic aortic valve disorder, unspecified; K21.9 Gastro-esophageal reflux disease without esophagitis; Z85.820 Personal history of malignant melanoma of skin; Z87.891 Personal history of nicotine dependence; Z88.8 Allergy status to other drugs, medicaments and biological substances; Z92.3 Personal history of irradiation ==

== ENCOUNTER → 2021-02-01 | Outpatient (CLI) | payer MEDICARE, OTHER ==
[2021-02-01 10:29] LABS: BASO # 0.1 10^3/uL (0.0-0.2); EOS # 0.3 10^3/uL (0.0-0.5); EOS % 4.2 % (0.0-3.0); HEMATOCRIT 41.2 % (42.0-52.0); HEMOGLOBIN 13.4 g/dl (13.5-17.5); LYMPH # 1.2 10^3/uL (1.5-5.0); LYMPH % 19.2 % (24.0-44.0); MEAN CORPUSCULAR HEMOGLOBIN 28.3 pg (27.0-33.0); MEAN CORPUSCULAR HGB CONC 32.5 g/dl (32.0-36.5); MEAN CORPUSCULAR VOLUME 87.1 fl (80.0-96.0); MONO # 0.6 10^3/uL (0.0-0.8); MONO % 9.4 % (2.0-8.0); NEUTROPHILS % 64.7 % (36.0-66.0); PLATELET COUNT, AUTOMATED 285 10^3/uL (150-450); RED BLOOD COUNT 4.73 10^6/uL (4.30-6.10); WHITE BLOOD COUNT 6.1 10^3/uL (4.0-10.0)
[2021-02-01 11:32] LABS: ALBUMIN 3.8 GM/DL (3.2-5.2); ALT/SGPT 25 U/L (12-78); BILIRUBIN,TOTAL 0.4 MG/DL (0.2-1.0); BLOOD UREA NITROGEN 12 MG/DL (7-18); CALCIUM LEVEL 9.6 MG/DL (8.8-10.2); CARBON DIOXIDE LEVEL 28 MEQ/L (21-32); CHLORIDE LEVEL 102 MEQ/L (98-107); CREATININE FOR GFR 0.63 MG/DL (0.70-1.30); GLOMERULAR FILTRATION RATE > 60.0 (>35); GLUCOSE, FASTING 97 MG/DL (70-100); IMMUNOGLOBULIN A 73.2 MG/DL (70-400); IMMUNOGLOBULIN G 521 MG/DL (681-1648); IMMUNOGLOBULIN M 18.2 MG/DL (40-230); POTASSIUM SERUM 4.3 MEQ/L (3.5-5.1); SODIUM LEVEL 134 MEQ/L (136-145); TOTAL 25(OH) VITAMIN D 77.5 NG/ML (30.0-100.0); TOTAL PROTEIN 6.4 GM/DL (6.4-8.2)
[2021-02-02 17:09] LABS: FREE KAPPA LIGHT CHAINS SERUM 120.8 mg/L (3.3-19.4); FREE LAMBDA LIGHT CHAINS SERUM 8.2 mg/L (5.7-26.3); KAPPA/LAMBDA RATIO SERUM 14.73 (0.26-1.65)
== END ==
LOC: M WUC 08:00
PROVIDERS: ATTEND Internal Medicine Hematology & Oncology
DX: C44.311 Basal cell carcinoma of skin of nose (principal); Z79.899 Other long term (current) drug therapy

== ENCOUNTER → 2021-02-24 | Outpatient (REF) | payer MEDICARE, OTHER | LOC: M SFHCPLAZ 10:02 | PROVIDERS: ATTEND Physician Assistant | DX: R50.9 Fever, unspecified (principal) ==

== ENCOUNTER → 2021-03-01 | Outpatient (CLI) | payer MEDICARE, OTHER ==
[2021-03-01 10:02] LABS: BASO # 0.1 10^3/uL (0.0-0.2); BASO % 1.8 % (0.0-1.0); EOS # 0.2 10^3/uL (0.0-0.5); EOS % 5.2 % (0.0-3.0); HEMATOCRIT 39.4 % (42.0-52.0); HEMOGLOBIN 12.9 g/dl (13.5-17.5); LYMPH # 1.2 10^3/uL (1.5-5.0); LYMPH % 27.7 % (24.0-44.0); MEAN CORPUSCULAR HEMOGLOBIN 28.5 pg (27.0-33.0); MEAN CORPUSCULAR HGB CONC 32.7 g/dl (32.0-36.5); MONO # 0.6 10^3/uL (0.0-0.8); MONO % 13.7 % (2.0-8.0); NEUTROPHILS # 2.3 10^3/uL (1.5-8.5); NEUTROPHILS % 51.1 % (36.0-66.0); PLATELET COUNT, AUTOMATED 274 10^3/uL (150-450); RED BLOOD COUNT 4.53 10^6/uL (4.30-6.10); WHITE BLOOD COUNT 4.4 10^3/uL (4.0-10.0)
[2021-03-01 11:08] LABS: ALBUMIN 3.5 GM/DL (3.2-5.2); ALT/SGPT 27 U/L (12-78); BILIRUBIN,TOTAL 0.4 MG/DL (0.2-1.0); BLOOD UREA NITROGEN 14 MG/DL (7-18); CALCIUM LEVEL 9.6 MG/DL (8.8-10.2); CARBON DIOXIDE LEVEL 29 MEQ/L (21-32); CHLORIDE LEVEL 100 MEQ/L (98-107); CREATININE FOR GFR 0.68 MG/DL (0.70-1.30); GLOMERULAR FILTRATION RATE > 60.0 (>35); GLUCOSE, FASTING 99 MG/DL (70-100); IMMUNOGLOBULIN A 62.5 MG/DL (70-400); IMMUNOGLOBULIN G 445 MG/DL (681-1648); IMMUNOGLOBULIN M 13.4 MG/DL (40-230); POTASSIUM SERUM 4.3 MEQ/L (3.5-5.1); SODIUM LEVEL 133 MEQ/L (136-145); TOTAL PROTEIN 6.2 GM/DL (6.4-8.2)
[2021-03-02 17:08] LABS: FREE KAPPA LIGHT CHAINS SERUM 199.6 mg/L (3.3-19.4); FREE LAMBDA LIGHT CHAINS SERUM 7.3 mg/L (5.7-26.3); KAPPA/LAMBDA RATIO SERUM 27.34 (0.26-1.65)
== END ==
LOC: M WUC 08:01
PROVIDERS: ATTEND Nurse Practitioner Adult Health
DX: C44.311 Basal cell carcinoma of skin of nose (principal); Z79.899 Other long term (current) drug therapy

== ENCOUNTER → 2021-03-29 | Outpatient (CLI) | payer MEDICARE, OTHER ==
[~2021-03-29] MED LIST changes: +[UNRECOGNIZED DRUG - CODE]
[2021-03-29 10:10] LABS: BASO # 0.1 10^3/uL (0.0-0.2); BASO % 1.5 % (0.0-1.0); EOS # 0.2 10^3/uL (0.0-0.5); EOS % 4.2 % (0.0-3.0); HEMATOCRIT 38.1 % (42.0-52.0); HEMOGLOBIN 12.3 g/dl (13.5-17.5); LYMPH # 1.2 10^3/uL (1.5-5.0); LYMPH % 29.6 % (24.0-44.0); MEAN CORPUSCULAR HEMOGLOBIN 28.5 pg (27.0-33.0); MEAN CORPUSCULAR HGB CONC 32.3 g/dl (32.0-36.5); MEAN CORPUSCULAR VOLUME 88.2 fl (80.0-96.0); MONO # 0.5 10^3/uL (0.0-0.8); MONO % 11.7 % (2.0-8.0); NEUTROPHILS # 2.2 10^3/uL (1.5-8.5); NEUTROPHILS % 52.8 % (36.0-66.0); PLATELET COUNT, AUTOMATED 256 10^3/uL (150-450); RED BLOOD COUNT 4.32 10^6/uL (4.30-6.10); WHITE BLOOD COUNT 4.1 10^3/uL (4.0-10.0)
[2021-03-29 11:12] LABS: ALBUMIN 3.7 GM/DL (3.2-5.2); ALT/SGPT 25 U/L (12-78); BILIRUBIN,TOTAL 0.5 MG/DL (0.2-1.0); BLOOD UREA NITROGEN 15 MG/DL (7-18); CALCIUM LEVEL 9.7 MG/DL (8.8-10.2); CARBON DIOXIDE LEVEL 29 MEQ/L (21-32); CHLORIDE LEVEL 103 MEQ/L (98-107); CREATININE FOR GFR 0.77 MG/DL (0.70-1.30); GLOMERULAR FILTRATION RATE > 60.0 (>35); GLUCOSE, FASTING 100 MG/DL (70-100); IMMUNOGLOBULIN A 52.3 MG/DL (70-400); IMMUNOGLOBULIN G 395 MG/DL (681-1648); IMMUNOGLOBULIN M 10.8 MG/DL (40-230); POTASSIUM SERUM 4.5 MEQ/L (3.5-5.1); SODIUM LEVEL 136 MEQ/L (136-145); TOTAL PROTEIN 6.3 GM/DL (6.4-8.2)
[2021-03-30 17:08] LABS: FREE KAPPA LIGHT CHAINS SERUM 313.7 mg/L (3.3-19.4); FREE LAMBDA LIGHT CHAINS SERUM 4.4 mg/L (5.7-26.3); KAPPA/LAMBDA RATIO SERUM 71.3 (0.26-1.65)
== END ==
LOC: M WUC 08:00
PROVIDERS: ATTEND Internal Medicine Hematology & Oncology
DX: C90.00 Multiple myeloma not having achieved remission (principal)

== ENCOUNTER → 2021-04-05 | Outpatient (CLI) | payer MEDICARE, OTHER ==
[~2021-04-05] MED LIST changes: -AMLO10CA22 PO; +AMLO10CA30 PO
[2021-04-05 10:27] LABS: BASO # 0.1 10^3/uL (0.0-0.2); BASO % 0.9 % (0.0-1.0); EOS # 0.2 10^3/uL (0.0-0.5); EOS % 2.8 % (0.0-3.0); HEMATOCRIT 37.4 % (42.0-52.0); HEMOGLOBIN 12.1 g/dl (13.5-17.5); LYMPH # 1.5 10^3/uL (1.5-5.0); LYMPH % 22.6 % (24.0-44.0); MEAN CORPUSCULAR HEMOGLOBIN 28.7 pg (27.0-33.0); MEAN CORPUSCULAR HGB CONC 32.4 g/dl (32.0-36.5); MEAN CORPUSCULAR VOLUME 88.6 fl (80.0-96.0); MONO # 1.1 10^3/uL (0.0-0.8); MONO % 16.8 % (2.0-8.0); NEUTROPHILS # 3.6 10^3/uL (1.5-8.5); NEUTROPHILS % 56.6 % (36.0-66.0); PLATELET COUNT, AUTOMATED 231 10^3/uL (150-450); RED BLOOD COUNT 4.22 10^6/uL (4.30-6.10); WHITE BLOOD COUNT 6.4 10^3/uL (4.0-10.0)
[2021-04-05 11:06] LABS: ALBUMIN 3.9 GM/DL (3.2-5.2); ALT/SGPT 35 U/L (12-78); BILIRUBIN,TOTAL 0.5 MG/DL (0.2-1.0); BLOOD UREA NITROGEN 15 MG/DL (7-18); CALCIUM LEVEL 9.9 MG/DL (8.8-10.2); CARBON DIOXIDE LEVEL 28 MEQ/L (21-32); CHLORIDE LEVEL 101 MEQ/L (98-107); CREATININE FOR GFR 0.66 MG/DL (0.70-1.30); GLOMERULAR FILTRATION RATE > 60.0 (>35); GLUCOSE, FASTING 113 MG/DL (70-100); POTASSIUM SERUM 4.2 MEQ/L (3.5-5.1); SODIUM LEVEL 133 MEQ/L (136-145); TOTAL PROTEIN 6.3 GM/DL (6.4-8.2)
[2021-04-05 14:24] LABS: ALBUMIN 4.13 GM/DL (3.29-5.55); ALBUMIN % 65.5 % (55.8-66.1); ALPHA-1-GLOBULIN % 5.5 % (2.9-4.9); ALPHA-1-GLOBULINS 0.35 GM/DL (0.17-0.41); ALPHA-2-GLOBULINS 0.77 GM/DL (0.42-0.99); ALPHA-2-GLOBULINS % 12.2 % (7.1-11.8); BETA-1-GLOBULINS 0.43 GM/DL (0.28-0.60); BETA-1-GLOBULINS % 6.8 % (4.7-7.2); BETA-2-GLOBULINS 0.23 GM/DL (0.19-0.55); BETA-2-GLOBULINS % 3.6 % (3.2-6.5); GAMMA GLOBULIN % 6.4 % (11.1-18.8)
[2021-04-07 08:10] LABS: BETA 2 MICROGLOBULIN 1.6 mg/L (0.6-2.4); FREE KAPPA LIGHT CHAINS SERUM 380.8 mg/L (3.3-19.4); FREE LAMBDA LIGHT CHAINS SERUM 4.3 mg/L (5.7-26.3); KAPPA/LAMBDA RATIO SERUM 88.56 (0.26-1.65)
== END ==
LOC: M WUC 07:54
PROVIDERS: ATTEND Internal Medicine Hematology & Oncology
DX: C90.00 Multiple myeloma not having achieved remission (principal)

== ENCOUNTER → 2021-04-12 | Outpatient (REF) | payer MEDICARE, OTHER ==
[2021-04-14 15:09] LABS: FREE KAPPA LIGHT CHAINS URINE 2.54 mg/L (0.63-113.79); FREE LAMBDA LIGHT CHAINS URINE <0.67 mg/L (0.47-11.77); KAPPA/LAMBDA RATIO URINE >3.79 (1.03-31.76)
== END ==
LOC: M LAB REF 11:40
PROVIDERS: ATTEND Internal Medicine Hematology & Oncology
DX: C90.00 Multiple myeloma not having achieved remission (principal)

== ENCOUNTER → 2021-04-20 | Outpatient (CLI) | payer MEDICARE, OTHER ==
[~2021-04-20] MED LIST changes: +AMLO10CA22 PO; -AMLO10CA30 PO
--- NOTE | 2021-04-20 09:30 | REPVR ---
PROCEDURE INFORMATION: Exam: CT Neck Without Contrast Exam date and time: 04/20/2021 8:56 AM Age: 80 years old Clinical indication: Condition or disease; Other: Multiple myeloma in relapse TECHNIQUE: Imaging protocol: Computed tomography images of the neck without contrast. Radiation optimization: All CT scans at this facility use at least one of these dose optimization techniques: automated exposure control; mA and/or kV adjustment per patient size (includes targeted exams where dose is matched to clinical indication); or iterative reconstruction. COMPARISON: PT PET/CT Whole body 01/24/2017 1:05 PM FINDINGS: Nasopharynx: Unremarkable. Oropharynx: Unremarkable. No significant tonsillar enlargement. Hypopharynx: Unremarkable. Larynx: Unremarkable. Normal epiglottis. Retropharyngeal space: Unremarkable. Submandibular/Parotid glands: Normal. Glands are normal in size. Thyroid: Normal. No enlarged or calcified nodules. Lymph nodes: Unremarkable. No lymphadenopathy. Trachea: Visualized trachea is unremarkable. Lungs: Unremarkable as visualized. Bones/joints: There is degenerative disc disease and spondylosis, with severe intervertebral disc space loss at C5/6 and C6/7. There is multilevel facet hypertrophy. No acute fracture. There is a chronic fracture deformity of the right mandibular condyle. Soft tissues: Unremarkable. No significant soft tissue swelling. IMPRESSION: No acute findings. Electronically signed by: Nilda Hills On 04/20/2021 09:30:19 AM
--- NOTE | 2021-04-20 10:12 | REP ---
INDICATION: MULTIPLE MYELOMA IN RELAPSE. COMPARISON: Multiple the latest 06/06/2019 contrast-enhanced exam TECHNIQUE: Standard helical technique without intravenous or oral bowel preparatory contrast administration. FINDINGS: There is cholelithiasis status quo. The liver and spleen are essentially unchanged. Pancreas, adrenal glands, and kidneys are essentially unchanged. The abdominal aorta and para-aortic regions are essentially unchanged. There is descending colon and sigmoid colon diverticulosis. The bowel loops and the mesenteries are otherwise unremarkable. There is no evidence of free fluid or free air. Bone window technique throughout the exam again shows extensive multifocal lytic lesions in the pelvis and upper femora. IMPRESSION: There is no evidence of acute disease. Findings and limitations as described above. <Electronically signed by Dilan Powell > 04/20/21 [id number]
--- NOTE | 2021-04-20 10:18 | REP ---
INDICATION: MULTIPLE MYELOMA IN RELAPSE COMPARISON: 09/08/2016 the latest prior a contrast-enhanced exam. TECHNIQUE: Standard helical technique without intravenous contrast. FINDINGS: Limited evaluation of the mediastinum and pulmonary aaron show no significant changes from the prior exam. There is no evidence of a mass or adenopathy. There are no pleural or pericardial effusions. Bone window technique throughout the exam shows an old healed right posterior 8th rib fracture and new lytic lesions in the proximal humerus bilaterally clavicle bilaterally and scapula bilaterally. Numerous new vertebral body lytic lesions of various sizes are also evident. Evaluation of the lung abbasi shows no new abnormal nodules, masses, or opacities. IMPRESSION: 1. Multiple lytic lesions as described above. 2. The mediastinum, pulmonary aaron, and lung abbasi appear stable. <Electronically signed by Dilan Powell > 04/20/21 [id number]
== END ==
LOC: M RAD 08:39
PROVIDERS: ATTEND Internal Medicine Hematology & Oncology
DX: C90.02 Multiple myeloma in relapse (principal); M47.812 Spondylosis without myelopathy or radiculopathy, cervical region

== ENCOUNTER → 2021-05-17 | Outpatient (CLI) | payer MEDICARE, OTHER ==
[~2021-05-17] MED LIST changes: -AMLO10CA22 PO; +AMLO10CA30 PO
[2021-05-17 10:03] LABS: BASO % 0.2 % (0.0-1.0); EOS # 0.1 10^3/uL (0.0-0.5); EOS % 1.4 % (0.0-3.0); HEMATOCRIT 32.7 % (42.0-52.0); HEMOGLOBIN 10.6 g/dl (13.5-17.5); LYMPH # 0.8 10^3/uL (1.5-5.0); LYMPH % 12.1 % (24.0-44.0); MEAN CORPUSCULAR HEMOGLOBIN 29.2 pg (27.0-33.0); MEAN CORPUSCULAR HGB CONC 32.4 g/dl (32.0-36.5); MEAN CORPUSCULAR VOLUME 90.1 fl (80.0-96.0); MONO # 1.3 10^3/uL (0.0-0.8); MONO % 20.3 % (2.0-8.0); NEUTROPHILS # 4.1 10^3/uL (1.5-8.5); NEUTROPHILS % 65.5 % (36.0-66.0); PLATELET COUNT, AUTOMATED 161 10^3/uL (150-450); RED BLOOD COUNT 3.63 10^6/uL (4.30-6.10); WHITE BLOOD COUNT 6.3 10^3/uL (4.0-10.0)
[2021-05-17 10:33] LABS: ALBUMIN 3.2 GM/DL (3.2-5.2); ALT/SGPT 30 U/L (12-78); BILIRUBIN,TOTAL 0.5 MG/DL (0.2-1.0); BLOOD UREA NITROGEN 16 MG/DL (7-18); CALCIUM LEVEL 8.9 MG/DL (8.8-10.2); CARBON DIOXIDE LEVEL 27 MEQ/L (21-32); CHLORIDE LEVEL 101 MEQ/L (98-107); CREATININE FOR GFR 0.63 MG/DL (0.70-1.30); GLOMERULAR FILTRATION RATE > 60.0 (>35); GLUCOSE, FASTING 91 MG/DL (70-100); POTASSIUM SERUM 4.6 MEQ/L (3.5-5.1); SODIUM LEVEL 132 MEQ/L (136-145); TOTAL PROTEIN 5.4 GM/DL (6.4-8.2)
[2021-05-19 18:09] LABS: FREE KAPPA LIGHT CHAINS SERUM 343.8 mg/L (3.3-19.4); FREE LAMBDA LIGHT CHAINS SERUM 2.2 mg/L (5.7-26.3); KAPPA/LAMBDA RATIO SERUM 156.27 (0.26-1.65)
== END ==
LOC: M WUC 08:46
PROVIDERS: ATTEND Internal Medicine Hematology & Oncology
DX: C90.00 Multiple myeloma not having achieved remission (principal); Z79.899 Other long term (current) drug therapy

== ENCOUNTER → 2021-06-16 | Outpatient (CLI) | payer MEDICARE, OTHER ==
[2021-06-16 10:02] LABS: BASO % 0.2 % (0.0-1.0); EOS # 0.4 10^3/uL (0.0-0.5); EOS % 7.6 % (0.0-3.0); HEMATOCRIT 33.9 % (42.0-52.0); HEMOGLOBIN 11.1 g/dl (13.5-17.5); LYMPH # 0.5 10^3/uL (1.5-5.0); LYMPH % 10.6 % (24.0-44.0); MEAN CORPUSCULAR HGB CONC 32.7 g/dl (32.0-36.5); MEAN CORPUSCULAR VOLUME 88.5 fl (80.0-96.0); MONO % 20.3 % (2.0-8.0); NEUTROPHILS # 3.1 10^3/uL (1.5-8.5); NEUTROPHILS % 61.1 % (36.0-66.0); PLATELET COUNT, AUTOMATED 141 10^3/uL (150-450); RED BLOOD COUNT 3.83 10^6/uL (4.30-6.10)
[2021-06-16 10:31] LABS: ALBUMIN 3.2 GM/DL (3.2-5.2); ALT/SGPT 24 U/L (12-78); BILIRUBIN,TOTAL 0.5 MG/DL (0.2-1.0); BLOOD UREA NITROGEN 12 MG/DL (7-18); CALCIUM LEVEL 9.2 MG/DL (8.8-10.2); CARBON DIOXIDE LEVEL 29 MEQ/L (21-32); CHLORIDE LEVEL 100 MEQ/L (98-107); CREATININE FOR GFR 0.66 MG/DL (0.70-1.30); GLOMERULAR FILTRATION RATE > 60.0 (>35); GLUCOSE, FASTING 97 MG/DL (70-100); POTASSIUM SERUM 4.6 MEQ/L (3.5-5.1); SODIUM LEVEL 132 MEQ/L (136-145); TOTAL PROTEIN 5.6 GM/DL (6.4-8.2)
== END ==
LOC: M WUC 08:11
PROVIDERS: ATTEND Internal Medicine Hematology & Oncology
DX: C90.00 Multiple myeloma not having achieved remission (principal)

== ENCOUNTER → 2021-06-21 | Outpatient (CLI) | payer MEDICARE, OTHER | LOC: M WUC 10:51 | PROVIDERS: ATTEND Internal Medicine Hematology & Oncology | DX: M89.9 Disorder of bone, unspecified (principal) ==

== ENCOUNTER → 2021-08-09 | Outpatient (CLI) | payer MEDICARE, OTHER | LOC: M CARPUL 11:14 | PROVIDERS: ATTEND Internal Medicine Hematology & Oncology | DX: C90.02 Multiple myeloma in relapse (principal); Z79.899 Other long term (current) drug therapy ==

== ENCOUNTER → 2021-08-19 | Outpatient (CLI) | payer MEDICARE, OTHER ==
[~2021-08-19] MED LIST changes: +LIDOCAINE 1% MDV 20ML VIAL As Ordered ONE
[2021-08-19 09:24] LABS: BASO % 0.1 % (0.0-1.0); HEMATOCRIT 29.7 % (42.0-52.0); HEMOGLOBIN 10.1 g/dl (13.5-17.5); LYMPH # 0.1 10^3/uL (1.5-5.0); LYMPH % 1.1 % (24.0-44.0); MEAN CORPUSCULAR HEMOGLOBIN 32.2 pg (27.0-33.0); MEAN CORPUSCULAR VOLUME 94.6 fl (80.0-96.0); MONO # 1.1 10^3/uL (0.0-0.8); MONO % 9.5 % (2.0-8.0); NEUTROPHILS # 10.1 10^3/uL (1.5-8.5); NEUTROPHILS % 88.4 % (36.0-66.0); PLATELET COUNT, AUTOMATED 106 10^3/uL (150-450); RED BLOOD COUNT 3.14 10^6/uL (4.30-6.10); WHITE BLOOD COUNT 11.4 10^3/uL (4.0-10.0)
[2021-08-19 09:37] VITALS: BP 134/60
== END ==
LOC: M IRPRO 08:56
PROVIDERS: ATTEND Internal Medicine Hematology & Oncology
DX: C90.00 Multiple myeloma not having achieved remission (principal); D72.829 Elevated white blood cell count, unspecified; D64.9 Anemia, unspecified; D69.6 Thrombocytopenia, unspecified

== ENCOUNTER → 2021-11-03 | Outpatient (CLI) | payer MEDICARE, OTHER ==
[~2021-11-03] MED LIST changes: +DECA4TAB PO; -LIDOCAINE 1% MDV 20ML VIAL As Ordered ONE; +XIID5DRO OP
[2021-11-03 10:26] LABS: ALBUMIN 3.7 GM/DL (3.2-5.2); ALT/SGPT 31 U/L (12-78); BILIRUBIN,TOTAL 0.8 MG/DL (0.2-1.0); BLOOD UREA NITROGEN 13 MG/DL (7-18); CALCIUM LEVEL 9.6 MG/DL (8.8-10.2); CARBON DIOXIDE LEVEL 25 MEQ/L (21-32); CHLORIDE LEVEL 100 MEQ/L (98-107); CHOLESTEROL LEVEL 174 MG/DL (<200); CHOLESTEROL RISK RATIO 1.689 (<5); CREATININE FOR GFR 0.51 MG/DL (0.70-1.30); GLOMERULAR FILTRATION RATE > 60.0 (>35); GLUCOSE, FASTING 93 MG/DL (70-100); HDL CHOLESTEROL 103 MG/DL (>40); LDL CHOLESTEROL 58 MG/DL (<100); MAGNESIUM LEVEL 1.9 MG/DL (1.8-2.4); NON-HDL-C 71 MG/DL; POTASSIUM SERUM 4.2 MEQ/L (3.5-5.1); SODIUM LEVEL 132 MEQ/L (136-145); TOTAL PROTEIN 5.8 GM/DL (6.4-8.2); TRIGLYCERIDES LEVEL 65 MG/DL (<150)
== END ==
LOC: M WUC 07:58
PROVIDERS: ATTEND Internal Medicine
DX: I10 Essential (primary) hypertension (principal); E78.00 Pure hypercholesterolemia, unspecified; R79.89 Other specified abnormal findings of blood chemistry

== ENCOUNTER → 2021-11-23 | Outpatient (CLI) | payer MEDICARE, OTHER ==
[2021-11-23 10:01] LABS: BASO % 0.2 % (0.0-1.0); EOS # 0.1 10^3/uL (0.0-0.5); EOS % 3.1 % (0.0-3.0); HEMATOCRIT 37.4 % (42.0-52.0); HEMOGLOBIN 12.2 g/dl (13.5-17.5); LYMPH # 0.5 10^3/uL (1.5-5.0); LYMPH % 11.8 % (24.0-44.0); MEAN CORPUSCULAR HEMOGLOBIN 31.1 pg (27.0-33.0); MEAN CORPUSCULAR HGB CONC 32.6 g/dl (32.0-36.5); MEAN CORPUSCULAR VOLUME 95.4 fl (80.0-96.0); MONO # 0.9 10^3/uL (0.0-0.8); MONO % 19.3 % (2.0-8.0); NEUTROPHILS % 65.2 % (36.0-66.0); PLATELET COUNT, AUTOMATED 162 10^3/uL (150-450); RED BLOOD COUNT 3.92 10^6/uL (4.30-6.10); WHITE BLOOD COUNT 4.6 10^3/uL (4.0-10.0)
[2021-11-23 10:40] LABS: ALBUMIN 3.5 GM/DL (3.2-5.2); ALT/SGPT 25 U/L (12-78); BILIRUBIN,TOTAL 0.7 MG/DL (0.2-1.0); BLOOD UREA NITROGEN 11 MG/DL (7-18); CALCIUM LEVEL 9.5 MG/DL (8.8-10.2); CARBON DIOXIDE LEVEL 28 MEQ/L (21-32); CHLORIDE LEVEL 102 MEQ/L (98-107); CREATININE FOR GFR 0.53 MG/DL (0.70-1.30); GLOMERULAR FILTRATION RATE > 60.0 (>35); GLUCOSE, FASTING 89 MG/DL (70-100); MAGNESIUM LEVEL 2.1 MG/DL (1.8-2.4); POTASSIUM SERUM 4.4 MEQ/L (3.5-5.1); SODIUM LEVEL 138 MEQ/L (136-145); TOTAL PROTEIN 5.5 GM/DL (6.4-8.2)
[2021-11-24 16:08] LABS: FREE KAPPA LIGHT CHAINS SERUM 4.6 mg/L (3.3-19.4); FREE LAMBDA LIGHT CHAINS SERUM <1.5 mg/L (5.7-26.3); KAPPA/LAMBDA RATIO SERUM >3.07 (0.26-1.65)
== END ==
LOC: M WUC 08:01
PROVIDERS: ATTEND Internal Medicine
DX: C90.00 Multiple myeloma not having achieved remission (principal)

== ENCOUNTER → 2021-12-15 | Outpatient (CLI) | payer MEDICARE, OTHER ==
[2021-12-15 10:15] LABS: BASO % 0.2 % (0.0-1.0); EOS # 0.2 10^3/uL (0.0-0.5); EOS % 1.4 % (0.0-3.0); HEMATOCRIT 38.1 % (42.0-52.0); HEMOGLOBIN 12.5 g/dl (13.5-17.5); LYMPH # 0.6 10^3/uL (1.5-5.0); LYMPH % 5.7 % (24.0-44.0); MEAN CORPUSCULAR HGB CONC 32.8 g/dl (32.0-36.5); MEAN CORPUSCULAR VOLUME 94.5 fl (80.0-96.0); MONO # 1.3 10^3/uL (0.0-0.8); MONO % 12.2 % (2.0-8.0); NEUTROPHILS # 8.6 10^3/uL (1.5-8.5); NEUTROPHILS % 80.2 % (36.0-66.0); PLATELET COUNT, AUTOMATED 164 10^3/uL (150-450); RED BLOOD COUNT 4.03 10^6/uL (4.30-6.10); WHITE BLOOD COUNT 10.8 10^3/uL (4.0-10.0)
[2021-12-15 10:54] LABS: ALBUMIN 3.5 GM/DL (3.2-5.2); ALT/SGPT 21 U/L (12-78); BILIRUBIN,TOTAL 0.6 MG/DL (0.2-1.0); BLOOD UREA NITROGEN 12 MG/DL (7-18); CALCIUM LEVEL 9.3 MG/DL (8.8-10.2); CARBON DIOXIDE LEVEL 27 MEQ/L (21-32); CHLORIDE LEVEL 99 MEQ/L (98-107); CREATININE FOR GFR 0.54 MG/DL (0.70-1.30); GLOMERULAR FILTRATION RATE > 60.0 (>35); GLUCOSE, FASTING 84 MG/DL (70-100); POTASSIUM SERUM 4.1 MEQ/L (3.5-5.1); SODIUM LEVEL 132 MEQ/L (136-145); TOTAL PROTEIN 6.1 GM/DL (6.4-8.2)
== END ==
LOC: M WUC 08:01
PROVIDERS: ATTEND Internal Medicine Interventional Cardiology
DX: C90.00 Multiple myeloma not having achieved remission (principal)

== ENCOUNTER → 2021-12-22 | Outpatient (CLI) | payer MEDICARE, OTHER ==
[2021-12-22 10:19] LABS: BASO % 0.1 % (0.0-1.0); EOS # 0.2 10^3/uL (0.0-0.5); EOS % 2.5 % (0.0-3.0); HEMATOCRIT 35.9 % (42.0-52.0); HEMOGLOBIN 11.8 g/dl (13.5-17.5); LYMPH # 0.7 10^3/uL (1.5-5.0); LYMPH % 9.3 % (24.0-44.0); MEAN CORPUSCULAR HEMOGLOBIN 30.8 pg (27.0-33.0); MEAN CORPUSCULAR HGB CONC 32.9 g/dl (32.0-36.5); MEAN CORPUSCULAR VOLUME 93.7 fl (80.0-96.0); MONO # 1.1 10^3/uL (0.0-0.8); MONO % 15.3 % (2.0-8.0); NEUTROPHILS # 5.2 10^3/uL (1.5-8.5); NEUTROPHILS % 72.2 % (36.0-66.0); PLATELET COUNT, AUTOMATED 158 10^3/uL (150-450); RED BLOOD COUNT 3.83 10^6/uL (4.30-6.10); WHITE BLOOD COUNT 7.2 10^3/uL (4.0-10.0)
[2021-12-22 11:01] LABS: ALBUMIN 3.5 GM/DL (3.2-5.2); ALT/SGPT 24 U/L (12-78); BILIRUBIN,TOTAL 0.5 MG/DL (0.2-1.0); BLOOD UREA NITROGEN 12 MG/DL (7-18); CALCIUM LEVEL 9.7 MG/DL (8.8-10.2); CARBON DIOXIDE LEVEL 28 MEQ/L (21-32); CHLORIDE LEVEL 99 MEQ/L (98-107); CREATININE FOR GFR 0.52 MG/DL (0.70-1.30); GLOMERULAR FILTRATION RATE > 60.0 (>35); GLUCOSE, FASTING 86 MG/DL (70-100); POTASSIUM SERUM 4.1 MEQ/L (3.5-5.1); SODIUM LEVEL 132 MEQ/L (136-145); TOTAL PROTEIN 5.4 GM/DL (6.4-8.2)
== END ==
LOC: M WUC 08:04
PROVIDERS: ATTEND Internal Medicine Hematology & Oncology
DX: C90.00 Multiple myeloma not having achieved remission (principal)

== ENCOUNTER → 2022-01-05 | Outpatient (CLI) | payer MEDICARE, OTHER ==
[2022-01-05 10:05] LABS: BASO % 0.7 % (0.0-1.0); EOS # 0.2 10^3/uL (0.0-0.5); EOS % 4.4 % (0.0-3.0); HEMATOCRIT 37.5 % (42.0-52.0); HEMOGLOBIN 12.2 g/dl (13.5-17.5); LYMPH # 0.6 10^3/uL (1.5-5.0); LYMPH % 13.3 % (24.0-44.0); MEAN CORPUSCULAR HEMOGLOBIN 30.8 pg (27.0-33.0); MEAN CORPUSCULAR HGB CONC 32.5 g/dl (32.0-36.5); MEAN CORPUSCULAR VOLUME 94.7 fl (80.0-96.0); MONO # 0.8 10^3/uL (0.0-0.8); NEUTROPHILS # 2.7 10^3/uL (1.5-8.5); NEUTROPHILS % 63.1 % (36.0-66.0); PLATELET COUNT, AUTOMATED 271 10^3/uL (150-450); RED BLOOD COUNT 3.96 10^6/uL (4.30-6.10); WHITE BLOOD COUNT 4.3 10^3/uL (4.0-10.0)
[2022-01-05 10:42] LABS: ALBUMIN 3.6 GM/DL (3.2-5.2); ALT/SGPT 25 U/L (12-78); BILIRUBIN,TOTAL 0.6 MG/DL (0.2-1.0); BLOOD UREA NITROGEN 12 MG/DL (7-18); CALCIUM LEVEL 9.4 MG/DL (8.8-10.2); CARBON DIOXIDE LEVEL 29 MEQ/L (21-32); CHLORIDE LEVEL 100 MEQ/L (98-107); CREATININE FOR GFR 0.51 MG/DL (0.70-1.30); GLOMERULAR FILTRATION RATE > 60.0 (>35); GLUCOSE, FASTING 89 MG/DL (70-100); POTASSIUM SERUM 4.2 MEQ/L (3.5-5.1); SODIUM LEVEL 132 MEQ/L (136-145); TOTAL PROTEIN 5.8 GM/DL (6.4-8.2)
== END ==
LOC: M WUC 08:01
PROVIDERS: ATTEND Internal Medicine Hematology & Oncology
DX: C90.00 Multiple myeloma not having achieved remission (principal)

== ENCOUNTER → 2022-01-12 | Outpatient (CLI) | payer MEDICARE, OTHER ==
[2022-01-12 09:21] LABS: BASO % 0.2 % (0.0-1.0); EOS # 0.2 10^3/uL (0.0-0.5); EOS % 4.5 % (0.0-3.0); HEMATOCRIT 37.7 % (42.0-52.0); HEMOGLOBIN 12.7 g/dl (13.5-17.5); LYMPH # 0.5 10^3/uL (1.5-5.0); LYMPH % 9.8 % (24.0-44.0); MEAN CORPUSCULAR HEMOGLOBIN 31.4 pg (27.0-33.0); MEAN CORPUSCULAR HGB CONC 33.7 g/dl (32.0-36.5); MEAN CORPUSCULAR VOLUME 93.3 fl (80.0-96.0); MONO % 17.8 % (2.0-8.0); NEUTROPHILS # 3.6 10^3/uL (1.5-8.5); NEUTROPHILS % 66.8 % (36.0-66.0); PLATELET COUNT, AUTOMATED 153 10^3/uL (150-450); RED BLOOD COUNT 4.04 10^6/uL (4.30-6.10); WHITE BLOOD COUNT 5.3 10^3/uL (4.0-10.0)
[2022-01-12 10:00] LABS: ALBUMIN 3.6 GM/DL (3.2-5.2); ALT/SGPT 26 U/L (12-78); BILIRUBIN,TOTAL 0.6 MG/DL (0.2-1.0); BLOOD UREA NITROGEN 11 MG/DL (7-18); CALCIUM LEVEL 9.6 MG/DL (8.8-10.2); CARBON DIOXIDE LEVEL 26 MEQ/L (21-32); CHLORIDE LEVEL 100 MEQ/L (98-107); GLOMERULAR FILTRATION RATE > 60.0 (>35); GLUCOSE, FASTING 90 MG/DL (70-100); POTASSIUM SERUM 4.2 MEQ/L (3.5-5.1); SODIUM LEVEL 131 MEQ/L (136-145)
== END ==
LOC: M WUC 07:59
PROVIDERS: ATTEND Internal Medicine Hematology & Oncology
DX: C90.00 Multiple myeloma not having achieved remission (principal)

== ENCOUNTER → 2022-01-19 | Outpatient (CLI) | payer MEDICARE, OTHER ==
[2022-01-19 10:31] LABS: BASO % 0.2 % (0.0-1.0); EOS # 0.3 10^3/uL (0.0-0.5); EOS % 4.3 % (0.0-3.0); HEMATOCRIT 36.6 % (42.0-52.0); HEMOGLOBIN 12.3 g/dl (13.5-17.5); LYMPH # 0.6 10^3/uL (1.5-5.0); LYMPH % 9.8 % (24.0-44.0); MEAN CORPUSCULAR HEMOGLOBIN 31.3 pg (27.0-33.0); MEAN CORPUSCULAR HGB CONC 33.6 g/dl (32.0-36.5); MEAN CORPUSCULAR VOLUME 93.1 fl (80.0-96.0); MONO % 17.8 % (2.0-8.0); NEUTROPHILS # 3.9 10^3/uL (1.5-8.5); NEUTROPHILS % 67.4 % (36.0-66.0); PLATELET COUNT, AUTOMATED 150 10^3/uL (150-450); RED BLOOD COUNT 3.93 10^6/uL (4.30-6.10); WHITE BLOOD COUNT 5.8 10^3/uL (4.0-10.0)
[2022-01-19 10:53] LABS: ALBUMIN 3.6 GM/DL (3.2-5.2); ALT/SGPT 26 U/L (12-78); BILIRUBIN,TOTAL 0.6 MG/DL (0.2-1.0); BLOOD UREA NITROGEN 16 MG/DL (7-18); CALCIUM LEVEL 9.7 MG/DL (8.8-10.2); CARBON DIOXIDE LEVEL 28 MEQ/L (21-32); CHLORIDE LEVEL 101 MEQ/L (98-107); CREATININE FOR GFR 0.63 MG/DL (0.70-1.30); GLOMERULAR FILTRATION RATE > 60.0 (>35); GLUCOSE, FASTING 109 MG/DL (70-100); POTASSIUM SERUM 4.3 MEQ/L (3.5-5.1); SODIUM LEVEL 133 MEQ/L (136-145); TOTAL PROTEIN 5.7 GM/DL (6.4-8.2)
== END ==
LOC: M WUC 08:01
PROVIDERS: ATTEND Internal Medicine Hematology & Oncology
DX: C90.00 Multiple myeloma not having achieved remission (principal)

== ENCOUNTER → 2022-02-02 | Outpatient (CLI) | payer MEDICARE, OTHER ==
[~2022-02-02] MED LIST changes: +DEXA4TA
[2022-02-02 11:16] LABS: BASO % 0.9 % (0.0-1.0); EOS # 0.2 10^3/uL (0.0-0.5); EOS % 4.1 % (0.0-3.0); HEMATOCRIT 38.6 % (42.0-52.0); HEMOGLOBIN 12.7 g/dl (13.5-17.5); LYMPH # 0.6 10^3/uL (1.5-5.0); LYMPH % 13.5 % (24.0-44.0); MEAN CORPUSCULAR HEMOGLOBIN 30.8 pg (27.0-33.0); MEAN CORPUSCULAR HGB CONC 32.9 g/dl (32.0-36.5); MEAN CORPUSCULAR VOLUME 93.7 fl (80.0-96.0); MONO # 0.8 10^3/uL (0.0-0.8); MONO % 17.5 % (2.0-8.0); NEUTROPHILS % 63.6 % (36.0-66.0); PLATELET COUNT, AUTOMATED 291 10^3/uL (150-450); RED BLOOD COUNT 4.12 10^6/uL (4.30-6.10); WHITE BLOOD COUNT 4.7 10^3/uL (4.0-10.0)
[2022-02-02 12:00] LABS: ALBUMIN 3.7 GM/DL (3.2-5.2); ALT/SGPT 24 U/L (12-78); BILIRUBIN,TOTAL 0.6 MG/DL (0.2-1.0); BLOOD UREA NITROGEN 12 MG/DL (7-18); CALCIUM LEVEL 9.5 MG/DL (8.8-10.2); CARBON DIOXIDE LEVEL 29 MEQ/L (21-32); CHLORIDE LEVEL 99 MEQ/L (98-107); CREATININE FOR GFR 0.54 MG/DL (0.70-1.30); GLOMERULAR FILTRATION RATE > 60.0 (>35); GLUCOSE, FASTING 96 MG/DL (70-100); POTASSIUM SERUM 4.1 MEQ/L (3.5-5.1); SODIUM LEVEL 131 MEQ/L (136-145); TOTAL PROTEIN 5.9 GM/DL (6.4-8.2)
== END ==
LOC: M WUC 07:59
PROVIDERS: ATTEND Internal Medicine Hematology & Oncology
DX: C90.00 Multiple myeloma not having achieved remission (principal)

== ENCOUNTER → 2022-02-09 | Outpatient (CLI) | payer MEDICARE, OTHER ==
[~2022-02-09] MED LIST changes: +PREDOPD
[2022-02-09 11:27] LABS: BASO % 0.1 % (0.0-1.0); EOS # 0.2 10^3/uL (0.0-0.5); EOS % 2.7 % (0.0-3.0); HEMATOCRIT 37.8 % (42.0-52.0); HEMOGLOBIN 12.2 g/dl (13.5-17.5); LYMPH # 0.6 10^3/uL (1.5-5.0); LYMPH % 7.9 % (24.0-44.0); MEAN CORPUSCULAR HEMOGLOBIN 30.6 pg (27.0-33.0); MEAN CORPUSCULAR HGB CONC 32.3 g/dl (32.0-36.5); MEAN CORPUSCULAR VOLUME 94.7 fl (80.0-96.0); MONO # 1.1 10^3/uL (0.0-0.8); MONO % 15.8 % (2.0-8.0); NEUTROPHILS # 5.2 10^3/uL (1.5-8.5); NEUTROPHILS % 72.8 % (36.0-66.0); PLATELET COUNT, AUTOMATED 177 10^3/uL (150-450); RED BLOOD COUNT 3.99 10^6/uL (4.30-6.10); WHITE BLOOD COUNT 7.1 10^3/uL (4.0-10.0)
[2022-02-09 12:26] LABS: ALBUMIN 3.8 GM/DL (3.2-5.2); ALT/SGPT 25 U/L (12-78); BILIRUBIN,TOTAL 0.6 MG/DL (0.2-1.0); BLOOD UREA NITROGEN 13 MG/DL (7-18); CALCIUM LEVEL 9.5 MG/DL (8.8-10.2); CARBON DIOXIDE LEVEL 25 MEQ/L (21-32); CHLORIDE LEVEL 101 MEQ/L (98-107); CREATININE FOR GFR 0.55 MG/DL (0.70-1.30); GLOMERULAR FILTRATION RATE > 60.0 (>35); GLUCOSE, FASTING 87 MG/DL (70-100); POTASSIUM SERUM 4.1 MEQ/L (3.5-5.1); SODIUM LEVEL 135 MEQ/L (136-145); TOTAL PROTEIN 5.7 GM/DL (6.4-8.2)
[2022-02-10 18:07] LABS: FREE KAPPA LIGHT CHAINS SERUM 3.8 mg/L (3.3-19.4); FREE LAMBDA LIGHT CHAINS SERUM 1.6 mg/L (5.7-26.3); KAPPA/LAMBDA RATIO SERUM 2.38 (0.26-1.65)
[2022-02-11 12:57] LABS: ALBUMIN 3.83 GM/DL (3.29-5.55); ALBUMIN % 67.2 % (55.8-66.1); ALPHA-1-GLOBULIN % 5.9 % (2.9-4.9); ALPHA-1-GLOBULINS 0.34 GM/DL (0.17-0.41); ALPHA-2-GLOBULINS 0.74 GM/DL (0.42-0.99); BETA-1-GLOBULINS 0.41 GM/DL (0.28-0.60); BETA-1-GLOBULINS % 7.2 % (4.7-7.2); BETA-2-GLOBULINS 0.21 GM/DL (0.19-0.55); BETA-2-GLOBULINS % 3.6 % (3.2-6.5); GAMMA GLOBULIN % 3.1 % (11.1-18.8); GAMMA GLOBULINS 0.18 GM/DL (0.65-1.58)
== END ==
LOC: M WUC 08:08
PROVIDERS: ATTEND Internal Medicine Hematology & Oncology
DX: C90.00 Multiple myeloma not having achieved remission (principal)

== ENCOUNTER → 2022-02-16 | Outpatient (CLI) | payer MEDICARE, OTHER ==
[~2022-02-16] MED LIST changes: +DOXY50CA51 PO
[2022-02-16 10:34] LABS: BASO % 0.2 % (0.0-1.0); EOS # 0.3 10^3/uL (0.0-0.5); EOS % 5.5 % (0.0-3.0); HEMATOCRIT 38.5 % (42.0-52.0); HEMOGLOBIN 12.7 g/dl (13.5-17.5); LYMPH # 0.6 10^3/uL (1.5-5.0); LYMPH % 11.4 % (24.0-44.0); MEAN CORPUSCULAR HEMOGLOBIN 31.3 pg (27.0-33.0); MEAN CORPUSCULAR VOLUME 94.8 fl (80.0-96.0); MONO % 17.9 % (2.0-8.0); NEUTROPHILS # 3.6 10^3/uL (1.5-8.5); NEUTROPHILS % 64.1 % (36.0-66.0); PLATELET COUNT, AUTOMATED 161 10^3/uL (150-450); RED BLOOD COUNT 4.06 10^6/uL (4.30-6.10); WHITE BLOOD COUNT 5.6 10^3/uL (4.0-10.0)
[2022-02-16 11:17] LABS: ALBUMIN 3.7 GM/DL (3.2-5.2); ALT/SGPT 27 U/L (12-78); BILIRUBIN,TOTAL 0.7 MG/DL (0.2-1.0); BLOOD UREA NITROGEN 19 MG/DL (7-18); CALCIUM LEVEL 9.9 MG/DL (8.8-10.2); CARBON DIOXIDE LEVEL 29 MEQ/L (21-32); CHLORIDE LEVEL 99 MEQ/L (98-107); GLOMERULAR FILTRATION RATE > 60.0 (>35); GLUCOSE, FASTING 98 MG/DL (70-100); POTASSIUM SERUM 4.3 MEQ/L (3.5-5.1); SODIUM LEVEL 133 MEQ/L (136-145); TOTAL PROTEIN 5.9 GM/DL (6.4-8.2)
[2022-02-16 14:41] LABS: ALBUMIN % 66.2 % (55.8-66.1); ALPHA-1-GLOBULIN % 6.2 % (2.9-4.9); ALPHA-2-GLOBULINS % 13.5 % (7.1-11.8)
[2022-02-16 14:42] LABS: ALBUMIN 3.91 GM/DL (3.29-5.55); ALPHA-1-GLOBULINS 0.37 GM/DL (0.17-0.41); BETA-1-GLOBULINS 0.42 GM/DL (0.28-0.60); BETA-1-GLOBULINS % 7.2 % (4.7-7.2); BETA-2-GLOBULINS 0.21 GM/DL (0.19-0.55); BETA-2-GLOBULINS % 3.5 % (3.2-6.5); GAMMA GLOBULIN % 3.4 % (11.1-18.8)
[2022-02-17 17:09] LABS: FREE KAPPA LIGHT CHAINS SERUM 4.4 mg/L (3.3-19.4); FREE LAMBDA LIGHT CHAINS SERUM 1.6 mg/L (5.7-26.3); KAPPA/LAMBDA RATIO SERUM 2.75 (0.26-1.65)
== END ==
LOC: M WUC 08:01
PROVIDERS: ATTEND Internal Medicine Hematology & Oncology
DX: C90.00 Multiple myeloma not having achieved remission (principal)

== ENCOUNTER → 2022-03-02 | Outpatient (CLI) | payer MEDICARE, OTHER ==
[2022-03-02 09:40] LABS: BASO % 0.5 % (0.0-1.0); EOS # 0.3 10^3/uL (0.0-0.5); EOS % 4.6 % (0.0-3.0); HEMATOCRIT 40.1 % (42.0-52.0); HEMOGLOBIN 13.1 g/dl (13.5-17.5); LYMPH # 0.4 10^3/uL (1.5-5.0); LYMPH % 7.4 % (24.0-44.0); MEAN CORPUSCULAR HEMOGLOBIN 31.2 pg (27.0-33.0); MEAN CORPUSCULAR HGB CONC 32.7 g/dl (32.0-36.5); MEAN CORPUSCULAR VOLUME 95.5 fl (80.0-96.0); MONO # 1.1 10^3/uL (0.0-0.8); MONO % 18.4 % (2.0-8.0); NEUTROPHILS # 4.1 10^3/uL (1.5-8.5); NEUTROPHILS % 68.8 % (36.0-66.0); PLATELET COUNT, AUTOMATED 263 10^3/uL (150-450); WHITE BLOOD COUNT 5.9 10^3/uL (4.0-10.0)
[2022-03-02 10:18] LABS: ALT/SGPT 22 U/L (7.0-40); BLOOD UREA NITROGEN 14 MG/DL (9-23); CALCIUM LEVEL 9.6 MG/DL (8.3-10.6); CARBON DIOXIDE LEVEL 27 MMOL/L (20-31); CHLORIDE LEVEL 98 MMOL/L (98-107); CREATININE FOR GFR 0.57 MG/DL (0.70-1.30); GLOMERULAR FILTRATION RATE > 60.0 (>35); GLUCOSE, FASTING 94 MG/DL (74-106); POTASSIUM SERUM 4.3 MMOL/L (3.5-5.1); SODIUM LEVEL 132 MMOL/L (136-145); TOTAL PROTEIN 6.3 G/DL (5.7-8.2); TOTAL PROTEIN 6.3 GM/DL (6.4-8.2)
[2022-03-03 18:08] LABS: FREE KAPPA LIGHT CHAINS SERUM 4.5 mg/L (3.3-19.4); FREE LAMBDA LIGHT CHAINS SERUM <1.5 mg/L (5.7-26.3); KAPPA/LAMBDA RATIO SERUM >3.00 (0.26-1.65)
== END ==
LOC: M WUC 08:02
PROVIDERS: ATTEND Internal Medicine Hematology & Oncology
DX: C90.00 Multiple myeloma not having achieved remission (principal)

== ENCOUNTER → 2022-03-09 | Outpatient (REF) | payer MEDICARE, OTHER ==
[~2022-03-09] MED LIST changes: +CHLO1TAB35 PO; +CHLO25TA88 PO
[2022-03-09 13:49] LABS: BASO % 0.2 % (0.0-1.0); EOS # 0.1 10^3/uL (0.0-0.5); EOS % 1.5 % (0.0-3.0); HEMATOCRIT 36.2 % (42.0-52.0); HEMOGLOBIN 12.1 g/dl (13.5-17.5); LYMPH # 0.4 10^3/uL (1.5-5.0); MEAN CORPUSCULAR HEMOGLOBIN 31.1 pg (27.0-33.0); MEAN CORPUSCULAR HGB CONC 33.4 g/dl (32.0-36.5); MEAN CORPUSCULAR VOLUME 93.1 fl (80.0-96.0); MONO # 1.2 10^3/uL (0.0-0.8); MONO % 19.7 % (2.0-8.0); NEUTROPHILS # 4.1 10^3/uL (1.5-8.5); NEUTROPHILS % 70.9 % (36.0-66.0); PLATELET COUNT, AUTOMATED 145 10^3/uL (150-450); RED BLOOD COUNT 3.89 10^6/uL (4.30-6.10); WHITE BLOOD COUNT 5.8 10^3/uL (4.0-10.0)
[2022-03-09 16:46] LABS: ALBUMIN 3.6 G/DL (3.2-5.2); ALT/SGPT 21 U/L (7.0-40); BILIRUBIN,TOTAL 0.8 MG/DL (0.3-1.2); BLOOD UREA NITROGEN 13 MG/DL (9-23); CALCIUM LEVEL 9.5 MG/DL (8.3-10.6); CARBON DIOXIDE LEVEL 24 MMOL/L (20-31); CHLORIDE LEVEL 94 MMOL/L (98-107); CREATININE FOR GFR 0.53 MG/DL (0.70-1.30); GLOMERULAR FILTRATION RATE > 60.0 (>35); GLUCOSE, FASTING 92 MG/DL (74-106); IMMUNOGLOBULIN G 139.99999 MG/DL (650-1600); IMMUNOGLOBULIN M 20.99999 MG/DL (50-300); POTASSIUM SERUM 4.2 MMOL/L (3.5-5.1); SODIUM LEVEL 128 MMOL/L (136-145); TOTAL PROTEIN 5.6 G/DL (5.7-8.2); TOTAL PROTEIN 5.6 GM/DL (6.4-8.2)
[2022-03-11 17:11] LABS: FREE KAPPA LIGHT CHAINS SERUM 4.2 mg/L (3.3-19.4); FREE LAMBDA LIGHT CHAINS SERUM 1.5 mg/L (5.7-26.3); KAPPA/LAMBDA RATIO SERUM 2.8 (0.26-1.65)
== END ==
LOC: M WUC 09:44
PROVIDERS: ATTEND Internal Medicine Hematology & Oncology
DX: C90.00 Multiple myeloma not having achieved remission (principal)

== ENCOUNTER → 2022-03-14 | Outpatient (CLI) | payer MEDICARE, OTHER | LOC: M RAD 16:53 | PROVIDERS: ATTEND Internal Medicine Hematology & Oncology | DX: C90.00 Multiple myeloma not having achieved remission (principal) ==

== ENCOUNTER → 2022-03-18 | Outpatient (CLI) | payer MEDICARE, OTHER ==
[2022-03-18 11:47] LABS: BASO % 0.3 % (0.0-1.0); EOS # 0.2 10^3/uL (0.0-0.5); EOS % 3.1 % (0.0-3.0); HEMATOCRIT 37.7 % (42.0-52.0); HEMOGLOBIN 12.7 g/dl (13.5-17.5); LYMPH # 0.7 10^3/uL (1.5-5.0); MEAN CORPUSCULAR HEMOGLOBIN 31.2 pg (27.0-33.0); MEAN CORPUSCULAR HGB CONC 33.7 g/dl (32.0-36.5); MEAN CORPUSCULAR VOLUME 92.6 fl (80.0-96.0); MONO # 1.4 10^3/uL (0.0-0.8); MONO % 20.3 % (2.0-8.0); NEUTROPHILS # 4.6 10^3/uL (1.5-8.5); PLATELET COUNT, AUTOMATED 251 10^3/uL (150-450); RED BLOOD COUNT 4.07 10^6/uL (4.30-6.10)
[2022-03-18 12:27] LABS: ALBUMIN 3.7 G/DL (3.2-5.2); ALKALINE PHOSPHATASE 68 U/L (46-116); ALT/SGPT 20 U/L (7.0-40); AST/SGOT 15 U/L (<34); BILIRUBIN,TOTAL 0.7 MG/DL (0.3-1.2); BLOOD UREA NITROGEN 16 MG/DL (9-23); CALCIUM LEVEL 9.7 MG/DL (8.3-10.6); CARBON DIOXIDE LEVEL 27 MMOL/L (20-31); CHLORIDE LEVEL 94 MMOL/L (98-107); CREATININE FOR GFR 0.59 MG/DL (0.70-1.30); GLOMERULAR FILTRATION RATE > 60.0 (>35); GLUCOSE, FASTING 87 MG/DL (74-106); POTASSIUM SERUM 4.3 MMOL/L (3.5-5.1); SODIUM LEVEL 129 MMOL/L (136-145); TOTAL PROTEIN 5.8 G/DL (5.7-8.2); TOTAL PROTEIN 5.8 GM/DL (6.4-8.2)
[2022-03-18 13:52] LABS: IMMUNOGLOBULIN G 214 MG/DL (650-1600)
[2022-03-18 14:20] LABS: IMMUNOGLOBULIN M 20.99999 MG/DL (50-300)
[2022-03-19 17:07] LABS: FREE KAPPA LIGHT CHAINS SERUM 4.7 mg/L (3.3-19.4); FREE LAMBDA LIGHT CHAINS SERUM 1.8 mg/L (5.7-26.3); KAPPA/LAMBDA RATIO SERUM 2.61 (0.26-1.65)
== END ==
LOC: M WUC 08:02
PROVIDERS: ATTEND Internal Medicine Hematology & Oncology
DX: C90.00 Multiple myeloma not having achieved remission (principal)

== ENCOUNTER → 2022-03-29 | Outpatient (CLI) | payer MEDICARE, OTHER ==
[2022-03-29 11:28] LABS: BASO % 0.3 % (0.0-1.0); EOS # 0.3 10^3/uL (0.0-0.5); EOS % 4.6 % (0.0-3.0); HEMATOCRIT 35.4 % (42.0-52.0); HEMOGLOBIN 11.5 g/dl (13.5-17.5); LYMPH # 0.5 10^3/uL (1.5-5.0); LYMPH % 6.2 % (24.0-44.0); MEAN CORPUSCULAR HEMOGLOBIN 31.1 pg (27.0-33.0); MEAN CORPUSCULAR HGB CONC 32.5 g/dl (32.0-36.5); MEAN CORPUSCULAR VOLUME 95.7 fl (80.0-96.0); MONO # 1.2 10^3/uL (0.0-0.8); MONO % 16.2 % (2.0-8.0); NEUTROPHILS # 5.4 10^3/uL (1.5-8.5); NEUTROPHILS % 72.3 % (36.0-66.0); PLATELET COUNT, AUTOMATED 208 10^3/uL (150-450); WHITE BLOOD COUNT 7.5 10^3/uL (4.0-10.0)
[2022-03-29 12:01] LABS: ALBUMIN 3.4 G/DL (3.2-5.2); ALKALINE PHOSPHATASE 71 U/L (46-116); ALT/SGPT 21 U/L (7.0-40); AST/SGOT 19 U/L (<34); BILIRUBIN,TOTAL 0.7 MG/DL (0.3-1.2); BLOOD UREA NITROGEN 15 MG/DL (9-23); CALCIUM LEVEL 9.3 MG/DL (8.3-10.6); CARBON DIOXIDE LEVEL 27 MMOL/L (20-31); CHLORIDE LEVEL 98 MMOL/L (98-107); CREATININE FOR GFR 0.55 MG/DL (0.70-1.30); GLOMERULAR FILTRATION RATE > 60.0 (>35); GLUCOSE, FASTING 107 MG/DL (74-106); POTASSIUM SERUM 4.1 MMOL/L (3.5-5.1); SODIUM LEVEL 131 MMOL/L (136-145); TOTAL PROTEIN 5.6 G/DL (5.7-8.2); TOTAL PROTEIN 5.6 GM/DL (6.4-8.2)
[2022-03-29 12:02] LABS: IMMUNOGLOBULIN G 186 MG/DL (650-1600)
[2022-03-29 12:15] LABS: IMMUNOGLOBULIN A < 33.0 MG/DL (40-350); IMMUNOGLOBULIN M < 21.0 MG/DL (50-300)
[2022-03-30 18:07] LABS: FREE KAPPA LIGHT CHAINS SERUM 4.9 mg/L (3.3-19.4); FREE LAMBDA LIGHT CHAINS SERUM 1.6 mg/L (5.7-26.3); KAPPA/LAMBDA RATIO SERUM 3.06 (0.26-1.65)
== END ==
LOC: M WUC 08:07
PROVIDERS: ATTEND Internal Medicine Hematology & Oncology
DX: C90.00 Multiple myeloma not having achieved remission (principal)

== ENCOUNTER → 2022-03-30 | Outpatient (CLI) | payer MEDICARE, OTHER ==
[~2022-03-30] MED LIST changes: +ISOVUE-370 76% 100ML VIAL As Ordered ONE
== END ==
LOC: M RAD 08:56
PROVIDERS: ATTEND Internal Medicine Hematology & Oncology
DX: R91.8 Other nonspecific abnormal finding of lung field (principal)
CPT/HCPCS: 71260; Q9967

== ENCOUNTER → 2022-04-06 | Outpatient (CLI) | payer MEDICARE, OTHER ==
[~2022-04-06] MED LIST changes: -ISOVUE-370 76% 100ML VIAL As Ordered ONE
[2022-04-06 10:37] LABS: BASO % 0.3 % (0.0-1.0); EOS # 0.4 10^3/uL (0.0-0.5); EOS % 5.1 % (0.0-3.0); HEMATOCRIT 36.3 % (42.0-52.0); HEMOGLOBIN 11.8 g/dl (13.5-17.5); LYMPH # 0.7 10^3/uL (1.5-5.0); LYMPH % 8.9 % (24.0-44.0); MEAN CORPUSCULAR HEMOGLOBIN 30.7 pg (27.0-33.0); MEAN CORPUSCULAR HGB CONC 32.5 g/dl (32.0-36.5); MEAN CORPUSCULAR VOLUME 94.5 fl (80.0-96.0); MONO # 1.3 10^3/uL (0.0-0.8); MONO % 18.3 % (2.0-8.0); NEUTROPHILS # 4.9 10^3/uL (1.5-8.5); NEUTROPHILS % 66.8 % (36.0-66.0); PLATELET COUNT, AUTOMATED 183 10^3/uL (150-450); RED BLOOD COUNT 3.84 10^6/uL (4.30-6.10); WHITE BLOOD COUNT 7.3 10^3/uL (4.0-10.0)
[2022-04-06 11:15] LABS: ALBUMIN 3.8 G/DL (3.2-5.2); ALKALINE PHOSPHATASE 64 U/L (46-116); ALT/SGPT 21 U/L (7.0-40); AST/SGOT 19 U/L (<34); BILIRUBIN,TOTAL 0.7 MG/DL (0.3-1.2); BLOOD UREA NITROGEN 17 MG/DL (9-23); CALCIUM LEVEL 9.7 MG/DL (8.3-10.6); CARBON DIOXIDE LEVEL 28 MMOL/L (20-31); CHLORIDE LEVEL 97 MMOL/L (98-107); CREATININE FOR GFR 0.65 MG/DL (0.70-1.30); GLOMERULAR FILTRATION RATE > 60.0 (>35); GLUCOSE, FASTING 87 MG/DL (74-106); POTASSIUM SERUM 4.3 MMOL/L (3.5-5.1); SODIUM LEVEL 132 MMOL/L (136-145); TOTAL PROTEIN 5.8 G/DL (5.7-8.2)
== END ==
LOC: M WUC 08:02
PROVIDERS: ATTEND Internal Medicine Hematology & Oncology
DX: C90.00 Multiple myeloma not having achieved remission (principal)

== ENCOUNTER → 2022-04-13 | Outpatient (CLI) | payer MEDICARE, OTHER ==
[2022-04-13 09:43] LABS: BASO % 0.2 % (0.0-1.0); EOS # 0.3 10^3/uL (0.0-0.5); EOS % 3.1 % (0.0-3.0); HEMATOCRIT 35.9 % (42.0-52.0); HEMOGLOBIN 11.7 g/dl (13.5-17.5); LYMPH # 0.5 10^3/uL (1.5-5.0); LYMPH % 5.2 % (24.0-44.0); MEAN CORPUSCULAR HEMOGLOBIN 30.5 pg (27.0-33.0); MEAN CORPUSCULAR HGB CONC 32.6 g/dl (32.0-36.5); MEAN CORPUSCULAR VOLUME 93.5 fl (80.0-96.0); MONO # 1.3 10^3/uL (0.0-0.8); MONO % 14.2 % (2.0-8.0); NEUTROPHILS # 7.2 10^3/uL (1.5-8.5); NEUTROPHILS % 76.8 % (36.0-66.0); PLATELET COUNT, AUTOMATED 165 10^3/uL (150-450); RED BLOOD COUNT 3.84 10^6/uL (4.30-6.10); WHITE BLOOD COUNT 9.4 10^3/uL (4.0-10.0)
[2022-04-13 10:12] LABS: ALBUMIN 3.5 G/DL (3.2-5.2); ALKALINE PHOSPHATASE 67 U/L (46-116); ALT/SGPT 17 U/L (7.0-40); AST/SGOT 16 U/L (<34); BILIRUBIN,TOTAL 0.7 MG/DL (0.3-1.2); BLOOD UREA NITROGEN 14 MG/DL (9-23); CALCIUM LEVEL 9.4 MG/DL (8.3-10.6); CARBON DIOXIDE LEVEL 27 MMOL/L (20-31); CHLORIDE LEVEL 100 MMOL/L (98-107); CREATININE FOR GFR 0.59 MG/DL (0.70-1.30); GLOMERULAR FILTRATION RATE > 60.0 (>35); GLUCOSE, FASTING 96 MG/DL (74-106); POTASSIUM SERUM 4.3 MMOL/L (3.5-5.1); SODIUM LEVEL 134 MMOL/L (136-145); TOTAL PROTEIN 5.5 G/DL (5.7-8.2)
== END ==
LOC: M WUC 08:01
PROVIDERS: ATTEND Internal Medicine Hematology & Oncology
DX: C90.00 Multiple myeloma not having achieved remission (principal)

== ENCOUNTER → 2022-04-27 | Outpatient (CLI) | payer MEDICARE, OTHER ==
[2022-04-27 10:31] LABS: BASO % 0.7 % (0.0-1.0); EOS # 0.3 10^3/uL (0.0-0.5); EOS % 6.4 % (0.0-3.0); HEMOGLOBIN 11.7 g/dl (13.5-17.5); LYMPH # 0.7 10^3/uL (1.5-5.0); LYMPH % 14.6 % (24.0-44.0); MEAN CORPUSCULAR HEMOGLOBIN 29.3 pg (27.0-33.0); MEAN CORPUSCULAR HGB CONC 31.6 g/dl (32.0-36.5); MEAN CORPUSCULAR VOLUME 92.5 fl (80.0-96.0); MONO # 0.8 10^3/uL (0.0-0.8); NEUTROPHILS # 2.7 10^3/uL (1.5-8.5); NEUTROPHILS % 60.1 % (36.0-66.0); PLATELET COUNT, AUTOMATED 367 10^3/uL (150-450); WHITE BLOOD COUNT 4.5 10^3/uL (4.0-10.0)
[2022-04-27 11:07] LABS: ALBUMIN 3.7 G/DL (3.2-5.2); ALKALINE PHOSPHATASE 63 U/L (46-116); ALT/SGPT 20 U/L (7.0-40); AST/SGOT 17 U/L (<34); BILIRUBIN,TOTAL 0.7 MG/DL (0.3-1.2); BLOOD UREA NITROGEN 15 MG/DL (9-23); CALCIUM LEVEL 9.3 MG/DL (8.3-10.6); CARBON DIOXIDE LEVEL 29 MMOL/L (20-31); CHLORIDE LEVEL 100 MMOL/L (98-107); CREATININE FOR GFR 0.59 MG/DL (0.70-1.30); GLOMERULAR FILTRATION RATE > 60.0 (>35); GLUCOSE, FASTING 94 MG/DL (74-106); POTASSIUM SERUM 4.4 MMOL/L (3.5-5.1); SODIUM LEVEL 134 MMOL/L (136-145); TOTAL PROTEIN 5.6 G/DL (5.7-8.2)
== END ==
LOC: M WUC 08:00
PROVIDERS: ATTEND Internal Medicine Hematology & Oncology
DX: C90.00 Multiple myeloma not having achieved remission (principal)

== ENCOUNTER → 2022-05-04 | Outpatient (CLI) | payer MEDICARE, OTHER ==
[2022-05-04 10:18] LABS: BASO % 0.3 % (0.0-1.0); EOS # 0.2 10^3/uL (0.0-0.5); EOS % 3.7 % (0.0-3.0); HEMATOCRIT 38.3 % (42.0-52.0); HEMOGLOBIN 11.9 g/dl (13.5-17.5); LYMPH # 0.7 10^3/uL (1.5-5.0); MEAN CORPUSCULAR HEMOGLOBIN 28.7 pg (27.0-33.0); MEAN CORPUSCULAR HGB CONC 31.1 g/dl (32.0-36.5); MEAN CORPUSCULAR VOLUME 92.3 fl (80.0-96.0); MONO % 16.7 % (2.0-8.0); NEUTROPHILS # 4.1 10^3/uL (1.5-8.5); PLATELET COUNT, AUTOMATED 183 10^3/uL (150-450); RED BLOOD COUNT 4.15 10^6/uL (4.30-6.10)
[2022-05-04 10:51] LABS: ALBUMIN 3.8 G/DL (3.2-5.2); ALKALINE PHOSPHATASE 62 U/L (46-116); ALT/SGPT 20 U/L (7.0-40); AST/SGOT 22 U/L (<34); BILIRUBIN,TOTAL 0.8 MG/DL (0.3-1.2); BLOOD UREA NITROGEN 14 MG/DL (9-23); CALCIUM LEVEL 9.6 MG/DL (8.3-10.6); CARBON DIOXIDE LEVEL 29 MMOL/L (20-31); CHLORIDE LEVEL 97 MMOL/L (98-107); CREATININE FOR GFR 0.61 MG/DL (0.70-1.30); GLOMERULAR FILTRATION RATE > 60.0 (>35); GLUCOSE, FASTING 91 MG/DL (74-106); POTASSIUM SERUM 4.1 MMOL/L (3.5-5.1); SODIUM LEVEL 132 MMOL/L (136-145); TOTAL PROTEIN 6.1 G/DL (5.7-8.2)
== END ==
LOC: M WUC 08:03
PROVIDERS: ATTEND Internal Medicine Hematology & Oncology
DX: C90.00 Multiple myeloma not having achieved remission (principal)

== ENCOUNTER → 2022-05-11 | Outpatient (CLI) | payer MEDICARE, OTHER ==
[2022-05-11 09:54] LABS: BASO % 0.4 % (0.0-1.0); EOS # 0.3 10^3/uL (0.0-0.5); EOS % 4.8 % (0.0-3.0); HEMATOCRIT 37.4 % (42.0-52.0); HEMOGLOBIN 11.9 g/dl (13.5-17.5); LYMPH # 0.6 10^3/uL (1.5-5.0); LYMPH % 10.7 % (24.0-44.0); MEAN CORPUSCULAR HEMOGLOBIN 29.2 pg (27.0-33.0); MEAN CORPUSCULAR HGB CONC 31.8 g/dl (32.0-36.5); MEAN CORPUSCULAR VOLUME 91.9 fl (80.0-96.0); MONO % 16.9 % (2.0-8.0); NEUTROPHILS # 3.8 10^3/uL (1.5-8.5); NEUTROPHILS % 66.5 % (36.0-66.0); PLATELET COUNT, AUTOMATED 146 10^3/uL (150-450); RED BLOOD COUNT 4.07 10^6/uL (4.30-6.10); WHITE BLOOD COUNT 5.6 10^3/uL (4.0-10.0)
[2022-05-11 10:26] LABS: ALBUMIN 3.6 G/DL (3.2-5.2); ALKALINE PHOSPHATASE 59 U/L (46-116); ALT/SGPT 17 U/L (7.0-40); AST/SGOT 17 U/L (<34); BILIRUBIN,TOTAL 0.8 MG/DL (0.3-1.2); BLOOD UREA NITROGEN 14 MG/DL (9-23); CALCIUM LEVEL 9.2 MG/DL (8.3-10.6); CARBON DIOXIDE LEVEL 28 MMOL/L (20-31); CHLORIDE LEVEL 99 MMOL/L (98-107); GLOMERULAR FILTRATION RATE > 60.0 (>35); GLUCOSE, FASTING 90 MG/DL (74-106); POTASSIUM SERUM 4.1 MMOL/L (3.5-5.1); SODIUM LEVEL 132 MMOL/L (136-145); TOTAL PROTEIN 5.9 G/DL (5.7-8.2)
== END ==
LOC: M WUC 07:58
PROVIDERS: ATTEND Internal Medicine Hematology & Oncology
DX: C90.00 Multiple myeloma not having achieved remission (principal)

== ENCOUNTER → 2022-05-25 | Outpatient (CLI) | payer MEDICARE, OTHER ==
[2022-05-25 10:04] LABS: BASO # 0.1 10^3/uL (0.0-0.2); BASO % 0.7 % (0.0-1.0); EOS # 0.2 10^3/uL (0.0-0.5); EOS % 2.5 % (0.0-3.0); HEMATOCRIT 36.8 % (42.0-52.0); HEMOGLOBIN 11.6 g/dl (13.5-17.5); LYMPH # 0.6 10^3/uL (1.5-5.0); LYMPH % 7.2 % (24.0-44.0); MEAN CORPUSCULAR HEMOGLOBIN 28.4 pg (27.0-33.0); MEAN CORPUSCULAR HGB CONC 31.5 g/dl (32.0-36.5); MONO # 1.3 10^3/uL (0.0-0.8); MONO % 16.5 % (2.0-8.0); NEUTROPHILS # 5.6 10^3/uL (1.5-8.5); NEUTROPHILS % 72.8 % (36.0-66.0); PLATELET COUNT, AUTOMATED 306 10^3/uL (150-450); RED BLOOD COUNT 4.09 10^6/uL (4.30-6.10); WHITE BLOOD COUNT 7.6 10^3/uL (4.0-10.0)
[2022-05-25 10:38] LABS: ALBUMIN 3.9 G/DL (3.2-5.2); ALKALINE PHOSPHATASE 72 U/L (46-116); ALT/SGPT 17 U/L (7.0-40); AST/SGOT 20 U/L (<34); BILIRUBIN,TOTAL 0.7 MG/DL (0.3-1.2); BLOOD UREA NITROGEN 16 MG/DL (9-23); CALCIUM LEVEL 9.6 MG/DL (8.3-10.6); CARBON DIOXIDE LEVEL 27 MMOL/L (20-31); CHLORIDE LEVEL 100 MMOL/L (98-107); GLOMERULAR FILTRATION RATE > 60.0 (>35); GLUCOSE, FASTING 92 MG/DL (74-106); POTASSIUM SERUM 4.2 MMOL/L (3.5-5.1); SODIUM LEVEL 133 MMOL/L (136-145); TOTAL PROTEIN 5.8 G/DL (5.7-8.2)
== END ==
LOC: M WUC 07:57
PROVIDERS: ATTEND Internal Medicine Hematology & Oncology
DX: C90.00 Multiple myeloma not having achieved remission (principal)

== ENCOUNTER → 2022-06-15 | Outpatient (CLI) | payer MEDICARE, OTHER ==
[2022-06-15 13:02] LABS: HEMATOCRIT 37.1 % (42.0-52.0); HEMOGLOBIN 11.8 g/dl (13.5-17.5); MEAN CORPUSCULAR HEMOGLOBIN 28.4 pg (27.0-33.0); MEAN CORPUSCULAR HGB CONC 31.8 g/dl (32.0-36.5); MEAN CORPUSCULAR VOLUME 89.4 fl (80.0-96.0); PLATELET COUNT, AUTOMATED 162 10^3/uL (150-450); RED BLOOD COUNT 4.15 10^6/uL (4.30-6.10); WHITE BLOOD COUNT 6.3 10^3/uL (4.0-10.0)
[2022-06-15 13:12] LABS: HEMOGLOBIN A1c 4.8 % (4.0-6.0)
[2022-06-15 13:35] LABS: ALBUMIN 3.6 G/DL (3.2-5.2); ALKALINE PHOSPHATASE 66 U/L (46-116); ALT/SGPT 20 U/L (7.0-40); AST/SGOT 17 U/L (<34); BILIRUBIN,TOTAL 0.8 MG/DL (0.3-1.2); BLOOD UREA NITROGEN 15 MG/DL (9-23); CALCIUM LEVEL 9.6 MG/DL (8.3-10.6); CARBON DIOXIDE LEVEL 28 MMOL/L (20-31); CHLORIDE LEVEL 99 MMOL/L (98-107); CHOLESTEROL LEVEL 151 MG/DL (<200); CHOLESTEROL RISK RATIO 1.97 (<5); CREATININE FOR GFR 0.58 MG/DL (0.70-1.30); CREATININE, URINE 51.8 MG/DL; GLOMERULAR FILTRATION RATE > 60.0 (>35); GLUCOSE, FASTING 86 MG/DL (74-106); HDL CHOLESTEROL 76.3 MG/DL (>40); LDL CHOLESTEROL 54.1 MG/DL (<100); NON-HDL-C 75 MG/DL; POTASSIUM SERUM 4.3 MMOL/L (3.5-5.1); SODIUM LEVEL 133 MMOL/L (136-145); TOTAL PROTEIN 5.7 G/DL (5.7-8.2); TRIGLYCERIDES LEVEL 103 MG/DL (<150)
[2022-06-15 13:36] LABS: MAU/CREAT RATIO 108.1 MCG/MG (0.0-30.0)
[2022-06-15 13:37] LABS: C REACTIVE PROTEIN QUANTITATIV < 0.40 MG/DL (<1.0); FREE T4 1.12 NG/DL (0.89-1.76); THYROID STIMULATING HORMONE 3.931 uIU/ML (0.55-4.78)
[2022-06-15 13:39] LABS: IMMUNOGLOBULIN G 168 MG/DL (650-1600); TOTAL 25(OH) VITAMIN D 67.1 NG/ML (20.0-100.0); VITAMIN B12 LEVEL 876 PG/ML (211-911)
== END ==
LOC: M WUC 11:02
PROVIDERS: ATTEND Internal Medicine Hematology
DX: C90.00 Multiple myeloma not having achieved remission (principal); E78.00 Pure hypercholesterolemia, unspecified

== ENCOUNTER → 2022-06-21 | Outpatient (CLI) | payer MEDICARE | LOC: M WHC 10:41 | PROVIDERS: ATTEND Internal Medicine Hematology | DX: Z13.820 Encounter for screening for osteoporosis (principal); M85.89 Other specified disorders of bone density and structure, multiple sites ==

== ENCOUNTER → 2022-08-22 | Outpatient (REF) | payer MEDICARE, OTHER | LOC: M SFHCDERM 09:27 | PROVIDERS: ATTEND Physician Assistant | DX: C44.619 Basal cell carcinoma of skin of left upper limb, including shoulder (principal) ==

== ENCOUNTER 2022-09-30 07:26 | Day surgery (SDC) | payer MEDICARE, OTHER ==
[~2022-09-30] VITALS: Ht 157.5 cm; Wt 65.3 kg
[~2022-09-30 07:26] MED LIST changes: +CelecoXIB 400 MG CAP PO ONE; +DOXA2TAB3 PO; +HYDR-3910 PO; +SYST0.4D2 OU; +[UNRECOGNIZED DRUG - OTHER] IV; +ceFAZolin SOD 2 GM in IV 1 EA IV ONE
[2022-09-30] MEDS ORDERED: LR 1,000 ML IV SCH (08:05)
[2022-09-30] MEDS ORDERED: LIDOCAINE 1% MDV 20ML VIAL As Ordered ONE (08:25)
[2022-09-30] MEDS ORDERED: LIDOCAINE W/EPINEPHRINE 1% 20ML VIAL As Ordered ONE (08:25)
[2022-09-30] MEDS ORDERED: propofoL 200 MG/20 ML VIAL As Ordered ONE (08:34)
[2022-09-30] MEDS ORDERED: LIDOCAINE 2% 100MG/5ML SDV (FOR ANES.) As Ordered ONE (08:34)
[2022-09-30 10:10] VITALS: BP 188/84; TEMP 97.6; O2SAT 100
[2022-10-07] MEDS ORDERED: [UNRECOGNIZED DRUG - CODE] PO (08:46)
== END 2022-09-30 10:23 | disposition home or self-care (01) ==
LOC: M SDC 07:26
PROVIDERS: ATTEND Surgery
DX: C44.619 Basal cell carcinoma of skin of left upper limb, including shoulder (principal); I10 Essential (primary) hypertension; E78.5 Hyperlipidemia, unspecified; C90.00 Multiple myeloma not having achieved remission; F41.9 Anxiety disorder, unspecified; F32.A Depression, unspecified; Z87.891 Personal history of nicotine dependence; Z79.899 Other long term (current) drug therapy; Z88.8 Allergy status to other drugs, medicaments and biological substances
CPT/HCPCS: 11104; 14020; 88305; J0690

== ENCOUNTER → 2022-12-01 | Outpatient (REF) | payer MEDICARE, OTHER ==
[~2022-12-01] MED LIST changes: -CelecoXIB 400 MG CAP PO ONE; -DOXA2TAB3 PO; +DOXA2TAB61 PO; +SPIR-10 PO; +[UNRECOGNIZED DRUG - CODE] PO; -ceFAZolin SOD 2 GM in IV 1 EA IV ONE
[2022-12-01 09:02] LABS: CHOLESTEROL RISK RATIO 1.81 (<5); HDL CHOLESTEROL 77.9 MG/DL (>40); LDL CHOLESTEROL 51.9 MG/DL (<100); NON-HDL-C 63.1 MG/DL
[2022-12-01 09:05] LABS: FREE T4 1.27 NG/DL (0.89-1.76); THYROID STIMULATING HORMONE 4.826 uIU/ML (0.55-4.78)
[2022-12-01 09:08] LABS: HEMOGLOBIN A1c 5.8 % (4.0-6.0)
== END ==
LOC: M LAB REF 08:07
PROVIDERS: ATTEND Internal Medicine Hematology
DX: E78.1 Pure hyperglyceridemia (principal); I10 Essential (primary) hypertension; E78.00 Pure hypercholesterolemia, unspecified; R79.89 Other specified abnormal findings of blood chemistry

== ENCOUNTER → 2022-12-05 | Outpatient (CLI) | payer MEDICARE, OTHER ==
[2022-12-05 17:05] LABS: ALBUMIN 3.5 G/DL (3.2-5.2); BLOOD UREA NITROGEN 17 MG/DL (9-23); CALCIUM LEVEL 9.6 MG/DL (8.3-10.6); CARBON DIOXIDE LEVEL 25 MMOL/L (20-31); CHLORIDE LEVEL 99 MMOL/L (98-107); CREATININE FOR GFR 0.62 MG/DL (0.70-1.30); GLOMERULAR FILTRATION RATE > 60.0 (>35); GLUCOSE, FASTING 99 MG/DL (74-106); PHOSPHORUS LEVEL 2.9 MG/DL (2.4-5.1); POTASSIUM SERUM 4.2 MMOL/L (3.5-5.1); SODIUM LEVEL 132 MMOL/L (136-145)
== END ==
LOC: M WUC 10:11
PROVIDERS: ATTEND Internal Medicine Cardiovascular Disease
DX: I50.32 Chronic diastolic (congestive) heart failure (principal); I11.0 Hypertensive heart disease with heart failure

== ENCOUNTER → 2022-12-20 | Outpatient (CLI) | payer MEDICARE, OTHER | LOC: M SLEEP HO 12-09 11:16 | PROVIDERS: ATTEND Internal Medicine Cardiovascular Disease | DX: I50.810 Right heart failure, unspecified (principal) ==

== ENCOUNTER → 2023-02-02 | Outpatient (CLI) | payer MEDICARE, OTHER | LOC: M ONCR 09:47 | PROVIDERS: ATTEND Radiology Radiation Oncology | DX: C44.311 Basal cell carcinoma of skin of nose (principal); C90.00 Multiple myeloma not having achieved remission; Z71.2 Person consulting for explanation of examination or test findings; Z79.82 Long term (current) use of aspirin; Z79.899 Other long term (current) drug therapy; Z88.8 Allergy status to other drugs, medicaments and biological substances; Z92.3 Personal history of irradiation ==

== ENCOUNTER 2023-02-14 08:38 | Emergency (ER) | payer MEDICARE, OTHER ==
[~2023-02-14] VITALS: Ht 165.1 cm; Wt 63.6 kg
[2023-02-14 09:56] LABS: INR 1.07; PROTHROMBIN TIME 13.6 SECONDS (12.5-14.5)
[2023-02-14] MEDS ORDERED: BACI500O8 TOP (10:34)
[2023-02-14 10:46] VITALS: BP 132/59; TEMP 97; O2SAT 98
== END 2023-02-14 10:48 | disposition home or self-care (01) ==
LOC: M ED 08:38
DX: R04.0 Epistaxis (principal); I10 Essential (primary) hypertension; I35.9 Nonrheumatic aortic valve disorder, unspecified; C90.00 Multiple myeloma not having achieved remission; E78.5 Hyperlipidemia, unspecified; Z87.891 Personal history of nicotine dependence; Z88.8 Allergy status to other drugs, medicaments and biological substances; Z79.82 Long term (current) use of aspirin; Z79.02 Long term (current) use of antithrombotics/antiplatelets; Z79.899 Other long term (current) drug therapy

== ENCOUNTER → 2023-02-16 | Outpatient (CLI) | payer MEDICARE, OTHER ==
[~2023-02-16] MED LIST changes: +BACI500O8 TOP
== END ==
LOC: M ONCR 14:33
PROVIDERS: ATTEND General Practice
DX: C44.311 Basal cell carcinoma of skin of nose (principal); Z71.2 Person consulting for explanation of examination or test findings; Z79.82 Long term (current) use of aspirin; Z79.899 Other long term (current) drug therapy; Z88.8 Allergy status to other drugs, medicaments and biological substances; Z92.21 Personal history of antineoplastic chemotherapy; Z92.3 Personal history of irradiation

== ENCOUNTER → 2023-03-16 | Outpatient (REF) | payer MEDICARE, OTHER ==
[~2023-03-16] MED LIST changes: +ONDA-195 PO; +SELI1TAB23 PO; +[UNRECOGNIZED DRUG - CODE] PO
[2023-03-16 08:46] LABS: BASO % 0.3 % (0.0-1.0); EOS % 0.7 % (0.0-3.0); HEMATOCRIT 30.3 % (42.0-52.0); HEMOGLOBIN 10.2 g/dl (13.5-17.5); LYMPH # 0.4 10^3/uL (1.5-5.0); LYMPH % 14.4 % (24.0-44.0); MEAN CORPUSCULAR HEMOGLOBIN 29.6 pg (27.0-33.0); MEAN CORPUSCULAR HGB CONC 33.7 g/dl (32.0-36.5); MEAN CORPUSCULAR VOLUME 87.8 fl (80.0-96.0); MONO # 0.5 10^3/uL (0.0-0.8); MONO % 17.7 % (2.0-8.0); NEUTROPHILS % 66.9 % (36.0-66.0); PLATELET COUNT, AUTOMATED 150 10^3/uL (150-450); RED BLOOD COUNT 3.45 10^6/uL (4.30-6.10)
[2023-03-16 09:18] LABS: ALBUMIN 3.4 G/DL (3.2-5.2); ALKALINE PHOSPHATASE 73 U/L (46-116); ALT/SGPT 16 U/L (7.0-40); AST/SGOT 9 U/L (<34); BILIRUBIN,TOTAL 0.6 MG/DL (0.3-1.2); BLOOD UREA NITROGEN 16 MG/DL (9-23); CALCIUM LEVEL 8.9 MG/DL (8.3-10.6); CARBON DIOXIDE LEVEL 23 MMOL/L (20-31); CHLORIDE LEVEL 101 MMOL/L (98-107); CREATININE FOR GFR 0.59 MG/DL (0.70-1.30); GLOMERULAR FILTRATION RATE > 60.0 (>35); GLUCOSE, FASTING 103 MG/DL (74-106); POTASSIUM SERUM 4.2 MMOL/L (3.5-5.1); SODIUM LEVEL 132 MMOL/L (136-145); TOTAL PROTEIN 5.5 G/DL (5.7-8.2)
== END ==
LOC: M LAB REF 08:21
PROVIDERS: ATTEND Internal Medicine Cardiovascular Disease
DX: I50.32 Chronic diastolic (congestive) heart failure (principal); I50.810 Right heart failure, unspecified; I34.0 Nonrheumatic mitral (valve) insufficiency; I11.0 Hypertensive heart disease with heart failure

== ENCOUNTER → 2023-03-16 | Outpatient (RCR) | payer MEDICARE, OTHER | LOC: M ONCR 02-28 13:48 | PROVIDERS: ATTEND General Practice | DX: Z51.0 Encounter for antineoplastic radiation therapy (principal); C44.311 Basal cell carcinoma of skin of nose ==

== ENCOUNTER 2023-04-14 11:30 | Outpatient (RCR) | payer MEDICARE, OTHER ==
[~2023-04-14 11:30] MED LIST changes: +ONDA8TAB8 PO; +[UNRECOGNIZED DRUG - CODE] PO
== END 2023-04-16 ==
LOC: M ONCR 11:30
PROVIDERS: ATTEND General Practice
DX: Z51.0 Encounter for antineoplastic radiation therapy (principal); C44.311 Basal cell carcinoma of skin of nose

== ENCOUNTER 2023-04-28 14:53 | Outpatient (CLI) | payer MEDICARE, OTHER ==
[~2023-04-28] VITALS: Ht 157.5 cm; Wt 66.0 kg
[2023-04-28 15:10] VITALS: BP 151/66; O2SAT 97
[2023-04-28] MEDS ORDERED: IRON SUCROSE 200 MG in NS 100 ML IV ONE (15:30)
[2023-04-28 16:38] VITALS: BP 137/63; O2SAT 96
== END 2023-04-28 16:40 | disposition home or self-care (01) ==
LOC: M INFU 14:53
PROVIDERS: ATTEND Specialist
DX: D50.9 Iron deficiency anemia, unspecified (principal); Z88.1 Allergy status to other antibiotic agents; Z88.8 Allergy status to other drugs, medicaments and biological substances
CPT/HCPCS: 96365; J1756

== ENCOUNTER 2023-05-04 11:19 | Outpatient (RCR) | payer MEDICARE, OTHER ==
[2023-05-19] MEDS ORDERED: IRON SUCROSE 200 MG in NS 100 ML IV SCH ×2
[2023-05-19] MEDS ORDERED: BORTEZOMIB 3.5 MG SC SCH
[2023-05-19] MEDS ORDERED: DEXA4TA PO (10:25)
[2023-05-19] MEDS ORDERED: [UNRECOGNIZED DRUG - CODE] PO ×2 (10:49→15:38)
[2023-05-22] MEDS ORDERED: [UNRECOGNIZED DRUG - CODE] PO (14:32)
== END 2023-05-17 ==
LOC: M ONCM 11:21
PROVIDERS: ATTEND General Practice
DX: Z51.0 Encounter for antineoplastic radiation therapy (principal); C44.311 Basal cell carcinoma of skin of nose

== ENCOUNTER → 2023-05-29 | Outpatient (CLI) | payer MEDICARE, OTHER ==
[2023-05-29 13:22] LABS: HEMOGLOBIN 8.9 g/dl (13.5-17.5); LYMPH # 0.5 10^3/uL (1.5-5.0); LYMPH % 10.9 % (24.0-44.0); MEAN CORPUSCULAR HEMOGLOBIN 32.6 pg (27.0-33.0); MEAN CORPUSCULAR VOLUME 98.9 fl (80.0-96.0); MONO # 0.7 10^3/uL (0.0-0.8); MONO % 15.3 % (2.0-8.0); NEUTROPHILS # 3.5 10^3/uL (1.5-8.5); NEUTROPHILS % 73.6 % (36.0-66.0); PLATELET COUNT, AUTOMATED 147 10^3/uL (150-450); RED BLOOD COUNT 2.73 10^6/uL (4.30-6.10); WHITE BLOOD COUNT 4.7 10^3/uL (4.0-10.0)
[2023-05-29 13:26] LABS: ALBUMIN 3.4 G/DL (3.2-5.2); ALKALINE PHOSPHATASE 81 U/L (46-116); ALT/SGPT 12 U/L (7.0-40); AST/SGOT < 8 U/L (<34); BILIRUBIN,TOTAL 0.6 MG/DL (0.3-1.2); BLOOD UREA NITROGEN 22 MG/DL (9-23); CALCIUM LEVEL 9.2 MG/DL (8.3-10.6); CARBON DIOXIDE LEVEL 27 MMOL/L (20-31); CHLORIDE LEVEL 102 MMOL/L (98-107); CREATININE FOR GFR 0.64 MG/DL (0.70-1.30); GLOMERULAR FILTRATION RATE > 60.0 (>35); GLUCOSE, FASTING 87 MG/DL (74-106); POTASSIUM SERUM 4.4 MMOL/L (3.5-5.1); SODIUM LEVEL 132 MMOL/L (136-145); TOTAL PROTEIN 5.4 G/DL (5.7-8.2)
== END ==
LOC: M WUC 09:43
PROVIDERS: ATTEND Internal Medicine Cardiovascular Disease
DX: I50.32 Chronic diastolic (congestive) heart failure (principal)

== ENCOUNTER → 2023-06-02 | Outpatient (CLI) | payer MEDICARE, OTHER ==
[~2023-06-02] MED LIST changes: -HYDR-3910 PO; +HYDR25TA87 PO
== END ==
LOC: M ONCR 10:40
PROVIDERS: ATTEND General Practice
DX: C44.301 Unspecified malignant neoplasm of skin of nose (principal); Z92.3 Personal history of irradiation

== ENCOUNTER → 2023-08-17 | Outpatient (REF) | payer MEDICARE, OTHER ==
[~2023-08-17] MED LIST changes: +DOXY50CA35 PO; -DOXY50CA51 PO; +REST0.057 OU; +VALA1TAB5 PO; +VELC3.5I SQ
[2023-08-17 12:00] LABS: BASO % 0.2 % (0.0-1.0); EOS # 0.1 10^3/uL (0.0-0.5); EOS % 1.6 % (0.0-3.0); HEMATOCRIT 25.5 % (42.0-52.0); HEMOGLOBIN 8.3 g/dl (13.5-17.5); LYMPH # 0.6 10^3/uL (1.5-5.0); MEAN CORPUSCULAR HEMOGLOBIN 33.2 pg (27.0-33.0); MEAN CORPUSCULAR HGB CONC 32.5 g/dl (32.0-36.5); MONO # 0.7 10^3/uL (0.0-0.8); MONO % 16.5 % (2.0-8.0); NEUTROPHILS # 2.9 10^3/uL (1.5-8.5); NEUTROPHILS % 67.2 % (36.0-66.0); PLATELET COUNT, AUTOMATED 102 10^3/uL (150-450); WHITE BLOOD COUNT 4.4 10^3/uL (4.0-10.0)
[2023-08-17 12:21] LABS: C REACTIVE PROTEIN QUANTITATIV < 0.40 MG/DL (<1.0); MAU/CREAT RATIO 22.9 MCG/MG (0.0-30.0)
[2023-08-17 12:23] LABS: ALBUMIN 2.8 G/DL (3.2-5.2); ALKALINE PHOSPHATASE 117 U/L (46-116); ALT/SGPT 73 U/L (7.0-40); AST/SGOT 20 U/L (<34); BILIRUBIN,TOTAL 0.7 MG/DL (0.3-1.2); BLOOD UREA NITROGEN 19 MG/DL (9-23); CALCIUM LEVEL 9.1 MG/DL (8.3-10.6); CARBON DIOXIDE LEVEL 25 MMOL/L (20-31); CHLORIDE LEVEL 103 MMOL/L (98-107); CHOLESTEROL LEVEL 123 MG/DL (<200); CHOLESTEROL RISK RATIO 1.68 (<5); CREATININE FOR GFR 0.73 MG/DL (0.70-1.30); GLOMERULAR FILTRATION RATE > 60.0 (>35); GLUCOSE, FASTING 115 MG/DL (74-106); HDL CHOLESTEROL 73.2 MG/DL (>40); LDL CHOLESTEROL 38.4 MG/DL (<100); NON-HDL-C 49.8 MG/DL; SODIUM LEVEL 135 MMOL/L (136-145); TRIGLYCERIDES LEVEL 57 MG/DL (<150)
[2023-08-17 12:24] LABS: THYROID STIMULATING HORMONE 4.504 uIU/ML (0.55-4.78); TOTAL 25(OH) VITAMIN D 90.6 NG/ML (20.0-100.0); VITAMIN B12 LEVEL 707 PG/ML (211-911)
[2023-08-17 12:25] LABS: FREE T4 1.25 NG/DL (0.89-1.76)
[2023-08-17 12:49] LABS: HEMOGLOBIN A1c 4.9 % (4.0-6.0)
== END ==
LOC: M LAB REF 11:33
PROVIDERS: ATTEND Internal Medicine Hematology
DX: R73.01 Impaired fasting glucose (principal); C90.00 Multiple myeloma not having achieved remission

== ENCOUNTER → 2023-08-21 | Outpatient (REF) | payer MEDICARE, OTHER | LOC: M SFHCDERM 16:26 | PROVIDERS: ATTEND Physician Assistant | DX: D48.5 Neoplasm of uncertain behavior of skin (principal); L08.9 Local infection of the skin and subcutaneous tissue, unspecified ==

== ENCOUNTER → 2023-08-25 | Outpatient (CLI) | payer MEDICARE, OTHER ==
[2023-08-25 15:16] LABS: THYROID STIMULATING HORMONE 5.148 uIU/ML (0.55-4.78)
[2023-08-25 15:17] LABS: FOLATE > 24.00 NG/ML (>5.4); VITAMIN B12 LEVEL 962 PG/ML (211-911)
== END ==
LOC: M WUC 09:36
PROVIDERS: ATTEND Psychiatry & Neurology Neurology
DX: E53.9 Vitamin B deficiency, unspecified (principal); E03.9 Hypothyroidism, unspecified; R41.3 Other amnesia

== ENCOUNTER → 2023-09-19 | Outpatient (REF) | payer MEDICARE, OTHER ==
[~2023-09-19] MED LIST changes: +ACYC1TAB PO; +FURO40TA2; +MEMA1TAB3 PO; +ONDA-282 PO; +ONDA-284 PO; -ONDA4TAB6 PO; -ONDA8TAB8 PO
[2023-09-19 10:22] LABS: MAGNESIUM LEVEL 1.9 MG/DL (1.8-2.4)
== END ==
LOC: M LAB REF 09:31
PROVIDERS: ATTEND Nurse Practitioner Family
DX: C44.310 Basal cell carcinoma of skin of unspecified parts of face (principal)

== ENCOUNTER → 2023-10-02 | Outpatient (CLI) | payer MEDICARE, OTHER ==
[2023-10-02 17:30] LABS: HEMATOCRIT 31.2 % (42.0-52.0); HEMOGLOBIN 10.1 g/dl (13.5-17.5); MEAN CORPUSCULAR HEMOGLOBIN 31.4 pg (27.0-33.0); MEAN CORPUSCULAR HGB CONC 32.4 g/dl (32.0-36.5); MEAN CORPUSCULAR VOLUME 96.9 fl (80.0-96.0); RED BLOOD COUNT 3.22 10^6/uL (4.30-6.10); WHITE BLOOD COUNT 7.4 10^3/uL (4.0-10.0)
[2023-10-02 17:36] LABS: PLATELET COUNT, AUTOMATED 76 10^3/uL (150-450)
[2023-10-02 17:54] LABS: ALBUMIN 3.1 G/DL (3.2-5.2); ALKALINE PHOSPHATASE 175 U/L (46-116); ALT/SGPT 48 U/L (7.0-40); AST/SGOT 18 U/L (<34); BILIRUBIN,TOTAL 0.8 MG/DL (0.3-1.2); BLOOD UREA NITROGEN 29 MG/DL (9-23); CALCIUM LEVEL 9.3 MG/DL (8.3-10.6); CARBON DIOXIDE LEVEL 25 MMOL/L (20-31); CHLORIDE LEVEL 101 MMOL/L (98-107); CREATININE FOR GFR 0.72 MG/DL (0.70-1.30); GLOMERULAR FILTRATION RATE > 60.0 (>35); GLUCOSE, FASTING 159 MG/DL (74-106); POTASSIUM SERUM 4.4 MMOL/L (3.5-5.1); SODIUM LEVEL 133 MMOL/L (136-145)
== END ==
LOC: M PLALAB 16:50
PROVIDERS: ATTEND Physician Assistant Medical
DX: I50.89 Other heart failure (principal); R60.0 Localized edema

== ENCOUNTER → 2023-10-09 | Outpatient (CLI) | payer MEDICARE, OTHER ==
[2023-10-09 15:44] LABS: BLOOD UREA NITROGEN 20 MG/DL (9-23); CALCIUM LEVEL 9.3 MG/DL (8.3-10.6); CARBON DIOXIDE LEVEL 30 MMOL/L (20-31); CHLORIDE LEVEL 98 MMOL/L (98-107); CREATININE FOR GFR 0.63 MG/DL (0.70-1.30); GLOMERULAR FILTRATION RATE > 60.0 (>35); GLUCOSE, FASTING 120 MG/DL (74-106); MAGNESIUM LEVEL 1.9 MG/DL (1.8-2.4); POTASSIUM SERUM 4.3 MMOL/L (3.5-5.1); SODIUM LEVEL 129 MMOL/L (136-145)
== END ==
LOC: M PLALAB 11:02
PROVIDERS: ATTEND Internal Medicine Cardiovascular Disease
DX: I50.32 Chronic diastolic (congestive) heart failure (principal); I11.0 Hypertensive heart disease with heart failure; I50.812 Chronic right heart failure; R94.31 Abnormal electrocardiogram [ECG] [EKG]

== ENCOUNTER → 2023-10-16 | Outpatient (REF) | payer MEDICARE, OTHER ==
[2023-10-16 09:51] LABS: ALBUMIN 3.1 G/DL (3.2-5.2); BLOOD UREA NITROGEN 17 MG/DL (9-23); CALCIUM LEVEL 8.9 MG/DL (8.3-10.6); CARBON DIOXIDE LEVEL 26 MMOL/L (20-31); CHLORIDE LEVEL 100 MMOL/L (98-107); CREATININE FOR GFR 0.55 MG/DL (0.70-1.30); GLOMERULAR FILTRATION RATE > 60.0 (>35); GLUCOSE, FASTING 106 MG/DL (74-106); MAGNESIUM LEVEL 1.8 MG/DL (1.8-2.4); PHOSPHORUS LEVEL 3.4 MG/DL (2.4-5.1); POTASSIUM SERUM 4.2 MMOL/L (3.5-5.1); SODIUM LEVEL 130 MMOL/L (136-145)
== END ==
LOC: M LAB REF 08:56
PROVIDERS: ATTEND Internal Medicine Cardiovascular Disease
DX: I50.32 Chronic diastolic (congestive) heart failure (principal); I11.0 Hypertensive heart disease with heart failure; I50.812 Chronic right heart failure; R94.31 Abnormal electrocardiogram [ECG] [EKG]

== ENCOUNTER → 2023-10-31 | Outpatient (CLI) | payer MEDICARE, OTHER ==
[~2023-10-31] MED LIST changes: +AMIT10TA7 PO
== END ==
LOC: M ONCR 10:30
PROVIDERS: ATTEND General Practice
DX: C44.311 Basal cell carcinoma of skin of nose (principal); C90.00 Multiple myeloma not having achieved remission; Z79.899 Other long term (current) drug therapy; Z85.828 Personal history of other malignant neoplasm of skin; Z88.8 Allergy status to other drugs, medicaments and biological substances; Z92.3 Personal history of irradiation

== ENCOUNTER → 2023-11-15 | Outpatient (REF) | payer MEDICARE, OTHER ==
[2023-11-15 09:20] LABS: BASO % 0.4 % (0.0-1.0); EOS # 0.4 10^3/uL (0.0-0.5); HEMATOCRIT 25.2 % (42.0-52.0); HEMOGLOBIN 8.3 g/dl (13.5-17.5); LYMPH # 0.4 10^3/uL (1.5-5.0); LYMPH % 16.8 % (24.0-44.0); MEAN CORPUSCULAR HEMOGLOBIN 32.4 pg (27.0-33.0); MEAN CORPUSCULAR HGB CONC 32.9 g/dl (32.0-36.5); MEAN CORPUSCULAR VOLUME 98.4 fl (80.0-96.0); MONO # 0.7 10^3/uL (0.0-0.8); MONO % 27.5 % (2.0-8.0); NEUTROPHILS % 36.9 % (36.0-66.0); PLATELET COUNT, AUTOMATED 159 10^3/uL (150-450); RED BLOOD COUNT 2.56 10^6/uL (4.30-6.10); WHITE BLOOD COUNT 2.4 10^3/uL (4.0-10.0)
[2023-11-15 09:27] LABS: NEUTROPHILS # 0.9 10^3/uL (1.5-8.5)
[2023-11-15 09:50] LABS: CREATININE, URINE 61.6 MG/DL
[2023-11-15 09:51] LABS: ALBUMIN 2.9 G/DL (3.2-5.2); ALKALINE PHOSPHATASE 154 U/L (46-116); ALT/SGPT 27 U/L (7.0-40); AST/SGOT 13 U/L (<34); BILIRUBIN,TOTAL 0.5 MG/DL (0.3-1.2); BLOOD UREA NITROGEN 24 MG/DL (9-23); CALCIUM LEVEL 9.1 MG/DL (8.3-10.6); CARBON DIOXIDE LEVEL 25 MMOL/L (20-31); CHLORIDE LEVEL 105 MMOL/L (98-107); CREATININE FOR GFR 0.66 MG/DL (0.70-1.30); GLOMERULAR FILTRATION RATE > 60.0 (>35); GLUCOSE, FASTING 110 MG/DL (74-106); POTASSIUM SERUM 4.3 MMOL/L (3.5-5.1); SODIUM LEVEL 136 MMOL/L (136-145); TOTAL PROTEIN 4.9 G/DL (5.7-8.2)
[2023-11-15 09:54] LABS: FREE T4 1.13 NG/DL (0.89-1.76)
[2023-11-15 09:55] LABS: THYROID STIMULATING HORMONE 4.469 uIU/ML (0.55-4.78)
[2023-11-15 10:10] LABS: HEMOGLOBIN A1c 5.4 % (4.0-6.0)
[2023-11-15 10:28] LABS: TOTAL 25(OH) VITAMIN D 86.9 NG/ML (20.0-100.0); VITAMIN B12 LEVEL 1348 PG/ML (211-911)
== END ==
LOC: M LAB REF 08:58
PROVIDERS: ATTEND Internal Medicine Hematology
DX: I10 Essential (primary) hypertension (principal)

== ENCOUNTER → 2023-11-27 | Outpatient (CLI) | payer MEDICARE, OTHER ==
[2023-11-27 19:18] LABS: ALBUMIN 3.2 G/DL (3.2-5.2); BLOOD UREA NITROGEN 18 MG/DL (9-23); CALCIUM LEVEL 9.8 MG/DL (8.3-10.6); CARBON DIOXIDE LEVEL 24 MMOL/L (20-31); CHLORIDE LEVEL 107 MMOL/L (98-107); CREATININE FOR GFR 0.69 MG/DL (0.70-1.30); GLOMERULAR FILTRATION RATE > 60.0 (>35); GLUCOSE, FASTING 114 MG/DL (74-106); MAGNESIUM LEVEL 2.1 MG/DL (1.8-2.4); PHOSPHORUS LEVEL 3.9 MG/DL (2.4-5.1); POTASSIUM SERUM 4.2 MMOL/L (3.5-5.1); SODIUM LEVEL 137 MMOL/L (136-145)
== END ==
LOC: M WUC 15:43
PROVIDERS: ATTEND Internal Medicine Cardiovascular Disease
DX: I50.32 Chronic diastolic (congestive) heart failure (principal); R94.31 Abnormal electrocardiogram [ECG] [EKG]

== ENCOUNTER → 2023-12-14 | Outpatient (CLI) | payer MEDICARE, OTHER ==
[~2023-12-14] MED LIST changes: +CYCL1DRO10 OU; +DONE10TA90 PO; -FURO40TA2; +FURO40TA2 PO; +SODI650T PO
[2023-12-14 18:45] LABS: BASO % 0.5 % (0.0-1.0); EOS # 0.3 10^3/uL (0.0-0.5); EOS % 4.9 % (0.0-3.0); HEMATOCRIT 23.2 % (42.0-52.0); HEMOGLOBIN 7.3 g/dl (13.5-17.5); LYMPH # 0.9 10^3/uL (1.5-5.0); LYMPH % 15.9 % (24.0-44.0); MEAN CORPUSCULAR HGB CONC 31.5 g/dl (32.0-36.5); MEAN CORPUSCULAR VOLUME 107.9 fl (80.0-96.0); MONO # 0.9 10^3/uL (0.0-0.8); MONO % 15.7 % (2.0-8.0); NEUTROPHILS # 3.4 10^3/uL (1.5-8.5); NEUTROPHILS % 58.8 % (36.0-66.0); PLATELET COUNT, AUTOMATED 113 10^3/uL (150-450); RED BLOOD COUNT 2.15 10^6/uL (4.30-6.10); WHITE BLOOD COUNT 5.7 10^3/uL (4.0-10.0)
[2023-12-14 19:17] LABS: ALBUMIN 3.3 G/DL (3.2-5.2); ALKALINE PHOSPHATASE 174 U/L (46-116); ALT/SGPT 21 U/L (7.0-40); AST/SGOT 19 U/L (<34); BILIRUBIN,TOTAL 0.7 MG/DL (0.3-1.2); BLOOD UREA NITROGEN 32 MG/DL (9-23); CALCIUM LEVEL 11.1 MG/DL (8.3-10.6); CARBON DIOXIDE LEVEL 24 MMOL/L (20-31); CHLORIDE LEVEL 110 MMOL/L (98-107); CREATININE FOR GFR 0.89 MG/DL (0.70-1.30); GLOMERULAR FILTRATION RATE > 60.0 (>35); GLUCOSE, FASTING 133 MG/DL (74-106); POTASSIUM SERUM 4.6 MMOL/L (3.5-5.1); SODIUM LEVEL 140 MMOL/L (136-145); TOTAL PROTEIN 5.7 G/DL (5.7-8.2)
== END ==
LOC: M WUC 11:41
PROVIDERS: ATTEND Internal Medicine Cardiovascular Disease
DX: I50.32 Chronic diastolic (congestive) heart failure (principal)

== ENCOUNTER 2023-12-16 18:27 | Inpatient (IN) | payer MEDICARE, OTHER ==
[~2023-12-16] VITALS: Ht 157.5 cm; Wt 57.7 kg
[~2023-12-16 18:27] MED LIST changes: -CYCL1DRO10 OU; -SODI650T PO
[2023-12-16] MEDS ORDERED: ISOVUE-370 76% 100ML VIAL As Ordered ONE (18:54)
[2023-12-16 19:20] LABS: BASO % 0.5 % (0.0-1.0); EOS # 0.1 10^3/uL (0.0-0.5); EOS % 2.2 % (0.0-3.0); HEMATOCRIT 22.3 % (42.0-52.0); HEMOGLOBIN 7.2 g/dl (13.5-17.5); MEAN CORPUSCULAR HEMOGLOBIN 34.1 pg (27.0-33.0); MEAN CORPUSCULAR HGB CONC 32.3 g/dl (32.0-36.5); MEAN CORPUSCULAR VOLUME 105.7 fl (80.0-96.0); MONO # 1.1 10^3/uL (0.0-0.8); MONO % 17.3 % (2.0-8.0); NEUTROPHILS # 3.8 10^3/uL (1.5-8.5); NEUTROPHILS % 58.8 % (36.0-66.0); PLATELET COUNT, AUTOMATED 101 10^3/uL (150-450); RED BLOOD COUNT 2.11 10^6/uL (4.30-6.10); WHITE BLOOD COUNT 6.4 10^3/uL (4.0-10.0)
[2023-12-16 19:35] LABS: INR 1.24; PARTIAL THROMBOPLASTIN TIME 24.6 SECONDS (24.8-34.2); PROTHROMBIN TIME 15.2 SECONDS (12.5-14.5)
[2023-12-16] MEDS: LIDOCAINE 2% 5ML JELLY UROJET TOP ONE (20:15)
[2023-12-16 20:57] LABS: ALBUMIN 3.3 G/DL (3.2-5.2); ALKALINE PHOSPHATASE 202 U/L (46-116); ALT/SGPT 17 U/L (7.0-40); AST/SGOT 22 U/L (<34); BILIRUBIN,DIRECT 0.2 MG/DL (<0.4); BILIRUBIN,TOTAL 0.7 MG/DL (0.3-1.2); TOTAL PROTEIN 5.9 G/DL (5.7-8.2)
[2023-12-16] MEDS ORDERED: CYCL1DRO10 OU (22:49)
[2023-12-16] MEDS ORDERED: HOME MED LIST COMPLETE! XX SCH (22:50)
[2023-12-17] VITALS (13 sets, daily range): BP systolic 117–141; BP diastolic 48–78; TEMP 97.5–99.7; O2SAT 96–100
[2023-12-17 00:46] LABS: CK-MB VALUE MASS < 1.0 NG/ML (<3.6)
[2023-12-17 00:48] LABS: CHOLESTEROL LEVEL 105 MG/DL (<200); CHOLESTEROL RISK RATIO 2.18 (<5); HDL CHOLESTEROL 48.1 MG/DL (>40); LDL CHOLESTEROL 45.5 MG/DL (<100); MAGNESIUM LEVEL 2.2 MG/DL (1.8-2.4); NON-HDL-C 56.9 MG/DL; TRIGLYCERIDES LEVEL 57 MG/DL (<150)
[2023-12-17 00:55] LABS: PROCALCITONIN 0.12 ng/ml
[2023-12-17 00:56] LABS: CPK CREATINE PHOSPHOKINASE 23 U/L (46-171); MB/CK RELATIVE INDEX 4.34 (< OR =4)
[2023-12-17] MEDS: LACTULOSE 20GM/30ML SYRUP UDC PO SCH (01:06)
[2023-12-17] MEDS: NS 1,000 ML IV SCH (01:07)
[2023-12-17] MEDS: DONEPEZIL 5 MG TAB PO SCH (09:00)
[2023-12-17] MEDS: FUROSEMIDE 40 MG TAB PO SCH (09:00)
[2023-12-17] MEDS: ACYCLOVIR 200 MG CAPSULE PO SCH (09:00)
[2023-12-17] MEDS ORDERED: CYCLOSPORINE 0.05% OU SCH (09:00)
[2023-12-17] MEDS: VITAMIN D 1,000 INTERNATIONAL UNITS TABLET PO SCH (09:00)
[2023-12-17 09:20] LABS: HEMATOCRIT 26.1 % (42.0-52.0); HEMOGLOBIN 8.8 g/dl (13.5-17.5); MEAN CORPUSCULAR HGB CONC 33.7 g/dl (32.0-36.5); MEAN CORPUSCULAR VOLUME 97.8 fl (80.0-96.0); RED BLOOD COUNT 2.67 10^6/uL (4.30-6.10); WHITE BLOOD COUNT 5.3 10^3/uL (4.0-10.0)
[2023-12-17 09:22] LABS: PLATELET COUNT, AUTOMATED 84 10^3/uL (150-450)
[2023-12-17 09:45] LABS: ALKALINE PHOSPHATASE 152 U/L (46-116); ALT/SGPT 20 U/L (7.0-40); AST/SGOT 22 U/L (<34); BILIRUBIN,TOTAL 1.5 MG/DL (0.3-1.2); BLOOD UREA NITROGEN 30 MG/DL (9-23); CALCIUM LEVEL 10.1 MG/DL (8.3-10.6); CARBON DIOXIDE LEVEL 19 MMOL/L (20-31); CHLORIDE LEVEL 111 MMOL/L (98-107); CREATININE FOR GFR 0.81 MG/DL (0.70-1.30); GLOMERULAR FILTRATION RATE > 60.0 (>35); GLUCOSE, FASTING 107 MG/DL (74-106); MAGNESIUM LEVEL 2.2 MG/DL (1.8-2.4); POTASSIUM SERUM 4.2 MMOL/L (3.5-5.1); SODIUM LEVEL 140 MMOL/L (136-145); TOTAL PROTEIN 5.4 G/DL (5.7-8.2)
[2023-12-17] MEDS ORDERED: ARTIFICIAL TEARS DROPS 15ML BTL (VISINE DRY RELIEF) OU PRN (14:55)
[2023-12-17] MEDS: MORPHINE 2 MG/ML 1ML VIAL IV PRN (15:14)
[2023-12-17] MEDS: LACTULOSE 20GM/30ML SYRUP UDC PR STA (15:18)
[2023-12-17] MEDS: COSOPT OCUMETER PLUS 10ML (DORZOLAMIDE/TIMOLOL) OU SCH (16:10)
[2023-12-17 17:54] LABS: HEMATOCRIT 27.4 % (42.0-52.0)
[2023-12-17] MEDS ORDERED: DEXTROSE 50% 50ML SYRINGE IV PRN (18:20)
[2023-12-17] MEDS ORDERED: GLUCAGON INJ 1MG VIAL SC PRN (18:20)
[2023-12-17] MEDS ORDERED: GLUCOSE 4 GM CHEW PO PRN (18:20)
[2023-12-18] VITALS (9 sets, daily range): BP systolic 121–144; BP diastolic 45–68; TEMP 98.1–99; O2SAT 93–97
[2023-12-18 06:27] LABS: HEMATOCRIT 27.8 % (42.0-52.0); HEMOGLOBIN 9.1 g/dl (13.5-17.5); MEAN CORPUSCULAR HGB CONC 32.7 g/dl (32.0-36.5); MEAN CORPUSCULAR VOLUME 97.9 fl (80.0-96.0); RED BLOOD COUNT 2.84 10^6/uL (4.30-6.10); WHITE BLOOD COUNT 5.1 10^3/uL (4.0-10.0)
[2023-12-18 06:32] LABS: LYMPH % 12.9 % (24.0-44.0); NEUTROPHILS % 64.7 % (36.0-66.0)
[2023-12-18 06:33] LABS: BASO % 0.4 % (0.0-1.0); EOS # 0.1 10^3/uL (0.0-0.5); EOS % 2.2 % (0.0-3.0); LYMPH # 0.7 10^3/uL (1.5-5.0); MONO # 0.8 10^3/uL (0.0-0.8); MONO % 16.5 % (2.0-8.0); NEUTROPHILS # 3.3 10^3/uL (1.5-8.5)
[2023-12-18 06:36] LABS: PLATELET COUNT, AUTOMATED 87 10^3/uL (150-450)
[2023-12-18 06:38] LABS: PLATELET ESTIMATE DECREASED (NORMAL)
[2023-12-18 06:51] LABS: BLOOD UREA NITROGEN 34 MG/DL (9-23); CALCIUM LEVEL 9.9 MG/DL (8.3-10.6); CARBON DIOXIDE LEVEL 18 MMOL/L (20-31); CHLORIDE LEVEL 116 MMOL/L (98-107); GLOMERULAR FILTRATION RATE > 60.0 (>35); GLUCOSE, FASTING 102 MG/DL (74-106); MAGNESIUM LEVEL 2.3 MG/DL (1.8-2.4); POTASSIUM SERUM 3.6 MMOL/L (3.5-5.1); SODIUM LEVEL 144 MMOL/L (136-145)
[2023-12-18] MEDS: ATORVASTATIN 20 MG TAB PO SCH (09:42)
[2023-12-18] MEDS ORDERED: ACETAMINOPHEN TAB 650MG DOSE (2X325MG) PO PRN (17:45)
[2023-12-19] VITALS: BP 122/53; TEMP 98.6; O2SAT 96
[2023-12-19 04:00] VITALS: BP 140/52; TEMP 98.4; O2SAT 97
[2023-12-19 06:14] LABS: BASO % 0.6 % (0.0-1.0); EOS # 0.1 10^3/uL (0.0-0.5); EOS % 2.1 % (0.0-3.0); HEMATOCRIT 27.6 % (42.0-52.0); HEMOGLOBIN 9.1 g/dl (13.5-17.5); LYMPH # 0.6 10^3/uL (1.5-5.0); LYMPH % 13.7 % (24.0-44.0); MEAN CORPUSCULAR HEMOGLOBIN 32.5 pg (27.0-33.0); MEAN CORPUSCULAR VOLUME 98.6 fl (80.0-96.0); MONO # 0.8 10^3/uL (0.0-0.8); MONO % 16.5 % (2.0-8.0); NEUTROPHILS % 63.7 % (36.0-66.0); WHITE BLOOD COUNT 4.7 10^3/uL (4.0-10.0)
[2023-12-19 06:27] LABS: PLATELET COUNT, AUTOMATED 75 10^3/uL (150-450)
[2023-12-19 06:34] LABS: BLOOD UREA NITROGEN 31 MG/DL (9-23); CALCIUM LEVEL 9.7 MG/DL (8.3-10.6); CARBON DIOXIDE LEVEL 18 MMOL/L (20-31); CHLORIDE LEVEL 116 MMOL/L (98-107); CREATININE FOR GFR 0.79 MG/DL (0.70-1.30); GLOMERULAR FILTRATION RATE > 60.0 (>35); GLUCOSE, FASTING 111 MG/DL (74-106); MAGNESIUM LEVEL 2.2 MG/DL (1.8-2.4); POTASSIUM SERUM 3.5 MMOL/L (3.5-5.1); SODIUM LEVEL 144 MMOL/L (136-145)
[2023-12-19 08:00] VITALS: BP 138/51; TEMP 98.6; O2SAT 96
[2023-12-19] MEDS: SODIUM BICARBONATE 325 MG TAB PO SCH (10:02)
[2023-12-19] MEDS: LACTULOSE 20GM/30ML SYRUP UDC PO SCH (10:03)
[2023-12-19 12:00] VITALS: BP 127/48; TEMP 98.6; O2SAT 97
[2023-12-19 16:00] VITALS: BP 124/46; TEMP 97; TEMP 99; O2SAT 97
[2023-12-19 19:51] VITALS: BP 127/46; TEMP 98.8; O2SAT 97
[2023-12-20] VITALS (7 sets, daily range): BP systolic 125–150; BP diastolic 45–81; TEMP 97.9–98.8; O2SAT 95–97
[2023-12-20 02:02] LABS: Hemoglobin A1c 5.4 (<5.7)
[2023-12-20 06:28] LABS: BASO % 0.5 % (0.0-1.0); EOS # 0.1 10^3/uL (0.0-0.5); EOS % 1.9 % (0.0-3.0); HEMATOCRIT 26.5 % (42.0-52.0); HEMOGLOBIN 8.7 g/dl (13.5-17.5); LYMPH # 0.6 10^3/uL (1.5-5.0); LYMPH % 15.3 % (24.0-44.0); MEAN CORPUSCULAR HEMOGLOBIN 32.1 pg (27.0-33.0); MEAN CORPUSCULAR HGB CONC 32.8 g/dl (32.0-36.5); MEAN CORPUSCULAR VOLUME 97.8 fl (80.0-96.0); MONO # 0.7 10^3/uL (0.0-0.8); MONO % 17.5 % (2.0-8.0); NEUTROPHILS # 2.6 10^3/uL (1.5-8.5); NEUTROPHILS % 62.6 % (36.0-66.0); RED BLOOD COUNT 2.71 10^6/uL (4.30-6.10); WHITE BLOOD COUNT 4.2 10^3/uL (4.0-10.0)
[2023-12-20 06:35] LABS: PLATELET COUNT, AUTOMATED 73 10^3/uL (150-450)
[2023-12-20 06:49] LABS: BLOOD UREA NITROGEN 27 MG/DL (9-23); CALCIUM LEVEL 9.5 MG/DL (8.3-10.6); CARBON DIOXIDE LEVEL 19 MMOL/L (20-31); CHLORIDE LEVEL 116 MMOL/L (98-107); CREATININE FOR GFR 0.72 MG/DL (0.70-1.30); GLOMERULAR FILTRATION RATE > 60.0 (>35); GLUCOSE, FASTING 118 MG/DL (74-106); MAGNESIUM LEVEL 2.2 MG/DL (1.8-2.4); POTASSIUM SERUM 3.6 MMOL/L (3.5-5.1); SODIUM LEVEL 144 MMOL/L (136-145)
[2023-12-21 04:00] VITALS: BP 137/59; TEMP 98.2; O2SAT 96
[2023-12-21 06:09] LABS: BASO % 0.5 % (0.0-1.0); EOS % 1.1 % (0.0-3.0); HEMATOCRIT 26.6 % (42.0-52.0); HEMOGLOBIN 8.6 g/dl (13.5-17.5); LYMPH # 0.6 10^3/uL (1.5-5.0); LYMPH % 17.5 % (24.0-44.0); MEAN CORPUSCULAR HEMOGLOBIN 32.6 pg (27.0-33.0); MEAN CORPUSCULAR HGB CONC 32.3 g/dl (32.0-36.5); MEAN CORPUSCULAR VOLUME 100.8 fl (80.0-96.0); MONO # 0.6 10^3/uL (0.0-0.8); MONO % 16.4 % (2.0-8.0); NEUTROPHILS # 2.2 10^3/uL (1.5-8.5); NEUTROPHILS % 60.4 % (36.0-66.0); RED BLOOD COUNT 2.64 10^6/uL (4.30-6.10); WHITE BLOOD COUNT 3.7 10^3/uL (4.0-10.0)
[2023-12-21 06:32] LABS: BLOOD UREA NITROGEN 29 MG/DL (9-23); CALCIUM LEVEL 9.4 MG/DL (8.3-10.6); CARBON DIOXIDE LEVEL 21 MMOL/L (20-31); CHLORIDE LEVEL 118 MMOL/L (98-107); CREATININE FOR GFR 0.72 MG/DL (0.70-1.30); GLOMERULAR FILTRATION RATE > 60.0 (>35); GLUCOSE, FASTING 112 MG/DL (74-106); MAGNESIUM LEVEL 2.1 MG/DL (1.8-2.4); POTASSIUM SERUM 3.4 MMOL/L (3.5-5.1); SODIUM LEVEL 147 MMOL/L (136-145)
[2023-12-21 07:15] LABS: PLATELET COUNT, AUTOMATED 60 10^3/uL (150-450)
[2023-12-21 08:00] VITALS: BP 138/58; TEMP 98.4; O2SAT 97
[2023-12-21] MEDS: LACTULOSE 20GM/30ML SYRUP UDC PO SCH (09:00)
[2023-12-21] MEDS: NS 0.45% 1,000 ML IV SCH ×2 (10:31→10:55)
[2023-12-21] MEDS: POTASSIUM CHLORIDE 10MEQ SR TABLET PO ONE (10:31)
[2023-12-21 12:13] VITALS: BP 139/57; TEMP 97.7; O2SAT 94
[2023-12-21 16:00] VITALS: BP 139/56; TEMP 98.8; O2SAT 94; O2SAT 98
[2023-12-21] MEDS ORDERED: SODI650T PO (16:04)
[2023-12-21] MEDS ORDERED: LACT10SO3 PO (16:05)
[2023-12-21 21:03] VITALS: BP 156/68; TEMP 98.6; O2SAT 97
[2023-12-21 21:15] LABS: BLOOD UREA NITROGEN 27 MG/DL (9-23); CALCIUM LEVEL 9.9 MG/DL (8.3-10.6); CARBON DIOXIDE LEVEL 18 MMOL/L (20-31); CHLORIDE LEVEL 117 MMOL/L (98-107); CREATININE FOR GFR 0.71 MG/DL (0.70-1.30); GLOMERULAR FILTRATION RATE > 60.0 (>35); GLUCOSE, FASTING 133 MG/DL (74-106); POTASSIUM SERUM 3.8 MMOL/L (3.5-5.1); SODIUM LEVEL 144 MMOL/L (136-145)
[2023-12-21 23:25] VITALS: BP 157/69; TEMP 98.6; O2SAT 99
[2023-12-22 03:56] VITALS: BP 157/69; TEMP 98.6; O2SAT 98
[2023-12-22 05:50] LABS: BASO % 0.4 % (0.0-1.0); EOS # 0.1 10^3/uL (0.0-0.5); EOS % 1.4 % (0.0-3.0); HEMATOCRIT 26.5 % (42.0-52.0); HEMOGLOBIN 8.6 g/dl (13.5-17.5); LYMPH # 0.9 10^3/uL (1.5-5.0); LYMPH % 17.2 % (24.0-44.0); MEAN CORPUSCULAR HEMOGLOBIN 32.6 pg (27.0-33.0); MEAN CORPUSCULAR HGB CONC 32.5 g/dl (32.0-36.5); MEAN CORPUSCULAR VOLUME 100.4 fl (80.0-96.0); MONO # 0.9 10^3/uL (0.0-0.8); MONO % 17.8 % (2.0-8.0); NEUTROPHILS % 59.2 % (36.0-66.0); RED BLOOD COUNT 2.64 10^6/uL (4.30-6.10)
[2023-12-22 05:51] LABS: PLATELET COUNT, AUTOMATED 68 10^3/uL (150-450)
[2023-12-22 06:11] LABS: BLOOD UREA NITROGEN 25 MG/DL (9-23); CALCIUM LEVEL 9.3 MG/DL (8.3-10.6); CARBON DIOXIDE LEVEL 19 MMOL/L (20-31); CHLORIDE LEVEL 117 MMOL/L (98-107); CREATININE FOR GFR 0.68 MG/DL (0.70-1.30); GLOMERULAR FILTRATION RATE > 60.0 (>35); GLUCOSE, FASTING 120 MG/DL (74-106); POTASSIUM SERUM 3.6 MMOL/L (3.5-5.1); SODIUM LEVEL 144 MMOL/L (136-145)
[2023-12-22] MEDS: LACTULOSE 20GM/30ML SYRUP UDC PR ONE (08:31)
== END 2023-12-22 10:00 | disposition home or self-care (01) | DRG 71 ==
LOC: M ED 18:27 → M ED INP 23:10 → M MSPAV 12-17 13:49
PROVIDERS: ADMIT Family Medicine; ATTEND General Practice
PROC: 30233N1 Transfusion of Nonautologous Red Blood Cells into Peripheral Vein, Percutaneous Approach (ICD-10-PCS; principal; 2023-12-17)
PROC: B246ZZZ Ultrasonography of Right and Left Heart (ICD-10-PCS; 2023-12-18)
DX: G93.41 Metabolic encephalopathy (principal); E72.20 Disorder of urea cycle metabolism, unspecified; C90.02 Multiple myeloma in relapse; I50.22 Chronic systolic (congestive) heart failure; E87.0 Hyperosmolality and hypernatremia; Z66 Do not resuscitate; D64.9 Anemia, unspecified; K76.82 Hepatic encephalopathy; I11.0 Hypertensive heart disease with heart failure; E78.5 Hyperlipidemia, unspecified; K21.9 Gastro-esophageal reflux disease without esophagitis; D69.6 Thrombocytopenia, unspecified; M54.9 Dorsalgia, unspecified; R13.10 Dysphagia, unspecified; E86.0 Dehydration; F41.9 Anxiety disorder, unspecified; R62.7 Adult failure to thrive; K20.90 Esophagitis, unspecified without bleeding; E83.52 Hypercalcemia; F32.A Depression, unspecified; I65.23 Occlusion and stenosis of bilateral carotid arteries; Z98.41 Cataract extraction status, right eye; Z98.42 Cataract extraction status, left eye; Z79.82 Long term (current) use of aspirin; Z79.899 Other long term (current) drug therapy; Z88.8 Allergy status to other drugs, medicaments and biological substances; Z92.21 Personal history of antineoplastic chemotherapy